=== PATIENT | female | born 1945 ===

== ENCOUNTER → 2018-04-02 09:13 | Outpatient (CLI) | payer MEDICARE, SELFPAY ==
[2018-04-02 10:26] LABS: Add Manual Diff / Slide Review NO; Eosinophils Percent Auto 1.4 % (2-4); Hematocrit 42.2 % (36-46); Hemoglobin 14.1 g/dL (12.0-16.0); Lymphocytes Percent Auto 31.6 % (25-40); Mean Corpuscular HGB Conc 33.5 % (30-36); Mean Corpuscular Hemoglobin 28.4 PG (26-34); Monocytes Percent Auto 10.9 % (3-14); Neutrophils Absolute Auto 2600 /uL (3000-5900); Neutrophils Percent Auto 55.1 % (50-75); Platelet Count 201 X10^3/uL (150-400); Red Blood Cell Count 4.96 X10^6/uL (4.0-5.2); Red Cell Distribution Width 13.9 % (11.6-14.8); White Blood Cell Count 4.7 X10^3/uL (4.5-11.0)
[2018-04-02 11:10] LABS: Alanine Aminotransferase 24 IU/L (9-52); Albumin 4.3 g/dL (3.5-5.0); Albumin Globulin Ratio 1.2 (1.0-2.8); Alkaline Phosphatase 65 U/L (38-126); Aspartate Aminotransferase 29 IU/L (14-36); BUN Creatinine Ratio 18.8 (6-22); Bilirubin Total 0.7 mg/dL (0.2-1.3); Blood Urea Nitrogen 15 mg/dL (7-17); Calcium 9.8 mg/dL (8.4-10.2); Carbon Dioxide 32 mmol/L (22-32); Chloride 102 mmol/L (98-107); Cholesterol 231 mg/dL (140-199); Estimated Glomerular Filt Rate > 60.0 mL/min (>60); Globulin 3.6 g/dL (1.7-4.1); Glucose 94 mg/dL (80-110); HDL Cholesterol 56 mg/dL (40-60); HEMOLYSIS < 15 (0-50); LDL Cholesterol Calculated 153 mg/dL (<100); Sodium 140 mmol/L (137-145); Total Protein 7.9 g/dL (6.3-8.2); Triglycerides 108 mg/dL (35-150)
[2018-04-02 11:40] LABS: TSH w/ Reflex to FT4 5.13 uIU/mL (0.47-4.68)
[2018-04-02 13:01] LABS: Free T4, Direct Thyroxine 0.94 ng/dL (0.78-2.19)
== END ==
PROVIDERS: Family Provider Family Medicine; PCP Family Medicine; Visit Provider Family Medicine
DX: E78.5 Hyperlipidemia, unspecified (principal); I10 Essential (primary) hypertension
CPT/HCPCS: 36415; 80053; 80061; 84439; 84443; 85025

== ENCOUNTER → 2018-04-07 11:24 | Outpatient (CLI) | payer MEDICARE, SELFPAY ==
--- NOTE | 2018-04-07 | DI.MG.S_ITS ---
BILATERAL DIGITAL SCREENING MAMMOGRAM 3D/2D WITH CAD: 04/07/2018 CLINICAL: Routine screening. Comparison is made to exams dated: 04/25/2016 mammogram, 04/12/2016 mammogram, and 02/10/2015 mammogram - [facility]. There are scattered fibroglandular elements in both breasts. Current study was also evaluated with a Computer Aided Detection (CAD) system. There are linear calcifications in the left breast upper outer aspect posterior depth. These are increased in number. No other significant masses, calcifications, or other findings are seen in either breast. IMPRESSION: INCOMPLETE: NEEDS ADDITIONAL IMAGING EVALUATION The linear calcifications in the left breast are indeterminate. Additional views with possible ultrasound are recommended. This exam was interpreted at Station ID: [id number]. NOTE: For mammograms, a report in lay terms will be sent to the patient. Approximately 15% of breast malignancies will not be visualized mammographically. In the management of a palpable breast mass, a negative mammogram must not discourage biopsy of a clinically suspicious lesion. Electronically Signed By: Andrea Sharma M.D. ecl/:04/07/2018 19:48:55 letter sent: Additional Imaging Needed ACR BI-RADS Category 0: Incomplete 3340F
== END ==
PROVIDERS: Family Provider Family Medicine; PCP Family Medicine; Visit Provider Family Medicine
DX: Z12.31 Encounter for screening mammogram for malignant neoplasm of breast (principal)
CPT/HCPCS: 77063; 77067

== ENCOUNTER → 2018-04-30 13:33 | Outpatient (CLI) | payer MEDICARE, SELFPAY ==
--- NOTE | 2018-04-30 13:35 | DI.MG.S_ITS ---
UNILATERAL LEFT DIGITAL DIAGNOSTIC MAMMOGRAM 3D/2D WITH ADDITIONAL VIEWS: 04/30/2018 CLINICAL: Additional evaluation requested from prior study. Comparison is made to exams dated: 04/07/2018 mammogram, 04/12/2016 mammogram, and 02/10/2015 mammogram - [facility]. There are scattered fibroglandular elements in the left breast. There are linear fine pleomorphic calcifications in the left breast at 2 o'clock posterior depth. No other significant masses or calcifications are seen in the breast. IMPRESSION: SUSPICIOUS OF MALIGNANCY The linear fine pleomorphic calcifications in the left breast are at an intermediate suspicion for malignancy. A stereotactic biopsy is recommended. The findings were discussed with the patient at the conclusion of the study by Dr. Braden. This exam was interpreted at Station ID: [id number]. NOTE: For mammograms, a report in lay terms will be sent to the patient. Approximately 15% of breast malignancies will not be visualized mammographically. In the management of a palpable breast mass, a negative mammogram must not discourage biopsy of a clinically suspicious lesion. Electronically Signed By: Godfrey morton/:04/30/2018 15:12:36 letter sent: Biopsy Required ACR BI-RADS Category 4b: Suspicious abnormality - intermediate suspicion of malignancy 3344F
== END ==
PROVIDERS: PCP Family Medicine; Visit Provider Family Medicine
DX: R92.8 Other abnormal and inconclusive findings on diagnostic imaging of breast (principal)
CPT/HCPCS: 77065; G0279

== ENCOUNTER → 2018-07-29 15:46 | Day surgery (SDC) | payer MEDICARE, SELFPAY | PROVIDERS: PCP Family Medicine; Visit Provider Surgery ==

== ENCOUNTER → 2018-08-20 07:30 | Outpatient (CLI) | payer MEDICARE, SELFPAY ==
--- NOTE | 2018-08-20 | DI.MG.S_ITS ---
SPECIMEN LEFT BREAST: 08/20/2018 CLINICAL: Left breast specimen. Correlation is made to exams dated: 05/12/2018 specimen - [facility], 04/07/2018 mammogram, and 08/20/2018 localization - [facility]. Two specimens were imaged for the area of calcifications located in the left breast at 3 o'clock posterior depth. IMPRESSION: SPECIMEN The imaged specimens includes a biopsy clip and the distal portion of the localization wire. This exam was interpreted at Station ID: [id number]. Nicola Bryant jl/:08/20/2018 14:29:02 copy to: Lance Trinidad
--- NOTE | 2018-08-20 | DI.MG.S_ITS ---
DIGITAL MAMMOGRAPHY GUIDED WIRE LOCALIZATION LEFT BREAST WITH POST DIGITAL MAMMOGRAPHIC IMAGIN08/20/2018 CLINICAL: Left Breast DCIS. Correlation is made to exams dated: 06/26/2018 breast MRI - [facility], 05/12/2018 stereotactic biopsy - [facility], and 04/30/2018 mammogram - [facility]. A wire localization using digital mammography guidance was performed for the marker clip located in the left breast at 3 o'clock posterior depth. The skin was prepped in the usual manner. Local anesthetic was administered to the access site. The localization was approached from the lateral aspect. A wire was inserted adjacent to the marker under digital mammography guidance. IMPRESSION: WIRE LOCALIZATION Wire localization for the marker clip in the left breast at 3 o'clock posterior depth was successful with no apparent post procedure complications. This exam was interpreted at Station ID: [id number]. Nicola shipman/:08/20/2018 10:23:51 copy to: Lance Trinidad
== END ==
PROVIDERS: PCP Family Medicine; Visit Provider Surgery
DX: D05.12 Intraductal carcinoma in situ of left breast (principal)
CPT/HCPCS: 19281; 76098

== ENCOUNTER 2018-08-20 07:31 | Day surgery (SDC) | payer MEDICARE, SELFPAY ==
[2018-08-15 09:19] VITALS: BMI 21.4
[2018-08-20] VITALS (10 sets, daily range): BP systolic 120–151; BP diastolic 64–96; PULSE 59–91; RESP 9–17; TEMP 36–36.4; O2SAT 94–99; BMI 21.4
--- NOTE | 2018-08-20 | PATH_ITS ---
[facility] Accession Number: [id number] . 01 Material submitted: . PART A: LEFT BREAST BIOPSY PART B: LEFT BREAST ANTERIOR . 02 Diagnosis: A. Left Breast Biopsy: CAP CANCER CASE SUMMARY Ductal carcinoma in situ of the breast: . Procedure: Left breast lumpectomy after needle localization. Specimen laterality: Left. Tumor site: Left breast at 2 o'clock, posterior, per patient's previous ultrasound-guided needle core biopsy report ([facility] [id number]; 05/12/2018). . Size of DCIS: Approximately five dispersed foci, each between 1 and 2 mm in greatest dimension, present in slices 4-7, a region measuring approximately 1.6 cm (4 slices, each approximately 4 mm each in thickness). . Histologic type: Ductal carcinoma in situ. Architectural patterns: Micropapillary pattern. Nuclear grade: Grade 1 of 3 (low grade). Necrosis: Not identified. . Margins: Anterior: Greater than 10 mm. Posterior: Greater than 10 mm. Superior: Within 1 mm. Inferior: 3 mm. Medial: Greater than 10 mm. Lateral: Greater than 10 mm. . Regional lymph nodes: Not applicable. Pathologic staging: AJCC, 8th ed. Primary tumor: pTis (DCIS) Regional lymph nodes: Not applicable. . Additional pathologic findings: Changes consistent with previous instrumentation; skin with no diagnostic abnormality. Microcalcifications: Present, associated with ductal carcinoma in situ, benign ductal epithelium, and benign fibroconnective tissue. Ancillary studies: Biomarkers Performed Previously on this patient's previous needle core biopsy ([facility], [id number]; 05/12/2018) and demonstrate the following by written report: Estrogen Receptor (ER) Status: Positive, 3+, greater than 95% of cells. . B. Left Breast Anterior (Additional margin), Lumpectomy Without Wire Localization: Benign breast parenchyma with changes consistent with previous instrumentation, adenosis, focal usual ductal hyperplasia, and scattered calcifications associated with benign ductal epithelium and vessel littlejohn. Negative for atypia and malignancy. MRV/08/22/2018 . 02 Electronically signed: . Elizabeth Laureano MD, Pathologist NPI- [id number] . 01 Gross description: . (A) Received in formalin, labeled left breast biopsy, short sup, long anterior, skin lateral, is a piece of breast tissue (5.1 cm AP, 0.5- 1.5 cm SI, 5.5 cm ML) with overlying skin (3.1 cm AP, 1.1 cm SI). The specimen is oriented with two black sutures (short-superior, long-anterior) and the skin is lateral. A localization wire enters the central posterior aspect of the skin. The specimen is serially sectioned AP into twelve slices with the anterior and posterior resection margins as slices #1 and #12, respectively. The breast tissue is fatty. The localization wire ends within slice #7. A possible hemorrhagic biopsy site (0.9 x 0.6 x 0.3 cm) is identified within slice #9. No nodules, masses or lesions are identified. Ink code: purple-anterior; yellow-posterior; black-superior; orange- inferior; green-medial. Section code: (A1) anterior resection margin, perpendicularly sectioned; (A2) slice #2; (A3) slice #3; (A4) slice #4; (A5-A6) slice #5, bisected and submitted LM; (A7-A8) slice #6, bisected and submitted LM; (A9-A10) slice #7, tissue involving the end of the localization wire, bisected and submitted LM; (A11-A12) slice #8, bisected and submitted LM; (A13-A14) slice #9, tissue with possible previous biopsy site, bisected and submitted LM; (A15-A16) slice #10, bisected and submitted LM; (A17-A18) slice #11, bisected and submitted LM; (A19-A20) posterior resection margin, perpendicularly sectioned and submitted LM. Specimen entirely submitted. (B) Received in formalin, labeled addition left breast anterior margin, short superior, long lateral, double anterior, is a piece of breast tissue (1.6 cm AP, 3.8 cm SI, 5.3 cm ML) with no overlying skin. The specimen is oriented with three black sutures (short-superior, long-lateral, double-anterior). No localization wire is present. The specimen is serially sectioned ML into sixteen slices with the medial and lateral resection margins as slices #1 and #16, respectively. The breast issue is fatty with no nodules, masses or lesions identified. Ink code: purple-anterior; yellow-posterior; black-superior; orange-inferior; green-medial; blue-lateral. Section code: (B1) medial resection margin, perpendicularly sectioned; (B2) slice #2; (B3) slice #3; (B4) slice #4; (B5) slice #5; (B6) slice #6; (B7) slice #7; (B8-B9) slice #8, bisected and submitted LM; (B10-B11) slice #9, bisected and submitted SI; (B12-B13) slice #10, bisected and submitted SI; (B14) slice #11; (B15) slice #12; (B16) slice # 13; (B17) slice #14; (B18) slice #15; (B19) lateral resection margin, perpendicularly sectioned. Specimen entirely submitted. . Note: Approximate total fixation time in formalin for both specimens-32 hours and 30 minutes calculated using a collection date of 08/20/2018 with no collection time given. ([id number]) /[facility] . 02 Pathologist provided ICD-10: D05.10 . 02 CPT . 698586, [id number] Performed at: 01 [facility] [address] [id number] MD Godfrey Campos MD Phone: [phone] Performed at: 02 [facility] [address] [place] [id number] MD Maru Abdi MD Phone: [phone]
--- NOTE | 2018-08-20 08:00 | SUR.PREOP ---
pt left for DI
--- NOTE | 2018-08-20 09:16 | SUR.PREOP ---
pt returned to opd from radiology , vss, no co's at 0910
[2018-08-20] MEDS: LACTATED RINGERS 1,000 ML 42 ML IV (09:18)
[2018-08-20] MEDS: APREPITANT 40 MG CAPSULE PO (12:37)
--- NOTE | 2018-08-20 12:53 | SUR.OPER ---
Supine on padded OR bed, head on pillow, arms secured on padded arm boards at <90 degrees abduction, legs uncrossed, safety belt at thigh, tape over blanket over lower legs.
[2018-08-20] MEDS: CEFAZOLIN 2 GM/100 ML FROZ.PIGGY IV (13:03)
[2018-08-20] MEDS: LIDOCAINE 1% W/EPI INJ 20 ML INJ (13:09)
[2018-08-20] MEDS: BUPIVACAINE 0.5% (PF) VIAL 30 ML INJ (13:10)
--- NOTE | 2018-08-20 13:40 | PM.HP.1 ---
History of Present Illness Date Patient Seen: 08/20/18 Time Patient Seen: 13:40 Chief complaint: left breast [id number] Narrative: Vivi is 1 full 72-year-old lady who was recently diagnosed with left breast DCIS. She presents today for left breast lumpectomy. She has already been to Radiology and has had a localization wire in place. She denies any nausea and reports that she is feeling well. Patient History Medical History Anesthesia complication (Acute) Cough (Acute) DCIS (ductal carcinoma in situ) of breast (Acute ~2017) Heart murmur (Acute) Low blood sugar (Acute) Pneumonia (Acute ~2015) Shortness of breath (Acute) Sinus drainage (Acute) Skipped heart beats (Acute) Acoustic neuroma (Chronic 2008) Hearing loss (Chronic 2001) Respiratory disorder (Chronic ~1994) Vertigo (Chronic 2014) Abnormal Pap smear of cervix (Resolved ~1984) Anemia (Resolved ~1959) Chicken pox (Resolved) Measles (Resolved) Mumps (Resolved) Nasal sinus polyp (Resolved ~1980) Plantar warts (Resolved 2008) Schwannoma (Resolved) Surgical History Hx of dilation and curettage (Acute ~1969) Anesthesia (Resolved) History of excision of mass (Resolved) History of sinus surgery (Resolved ~1980) Family & Social History Family History: Reviewed 08/20/18 by Luciana Murray MD Social History: household members spouse Tobacco & Substance use: Tobacco type cigarettes Smoking Status Former smoker alcohol intake former Substance Use Type does not use Meds Home Medications Medication Instructions Recorded Confirmed Type doxycycline monohydrate 25 mg PO BID #0 05/14/16 08/15/18 History Allergies Allergy/AdvReac Type Severity Reaction Status Date / Time No Known Drug Allergies Allergy Verified 05/16/18 16:01 Review of Systems Review of Systems All systems reviewed & are unremarkable except as noted in HPI and below Exam Vital Signs (past 8 hours): - 08/20/18 07:45 08/20/18 09:10 Temperature 97.2 F L 96.9 F L Pulse Rate 66 59 L Respiratory Rate 15 16 Blood Pressure 151/96 H 148/76 H Pulse Oximetry 99 97 Oxygen Delivery Method Room Air Narrative Exam Narrative: Pleasant lady in no distress HEENT: Normocephalic and atraumatic, pupils equal round reactive to light accommodation with anicteric sclera Lungs: Clear to auscultation bilaterally Heart: Regular rate and rhythm Breast: Localizing wire protruding from the lateral aspect of the left breast. No hemorrhage. Abdomen: Soft, nontender, active bowel sounds Extremities: Warm and well perfused and without edema Assessment & Plan Plan: Assessment/Plan Narrative: Pleasant and remarkably healthy 72-year-old lady with a pathologically confirmed diagnosis of left breast DCIS. We discussed risks and benefits of left breast lumpectomy and the patient expressed desire to complete the procedure.
--- NOTE | 2018-08-20 13:43 | PM.OP.1 ---
Operative Date/Time/Diagnoses Date of procedure: 08/20/18 Time of procedure: 13:43 Pre-op diagnosis: Left breast DCIS Post-op diagnosis: same Procedure & Clinicians Procedure: Left breast lumpectomy after needle localization Same procedure as scheduled: Yes Indications: Biopsy-proven DCIS Surgeon: Luciana Murray Anesthesia Type: General (Dr. Magdaleno) Operative Notes Findings: Wire, clip, and mass contained within the specimen. Closure Type: primary Estimated Blood Loss (mL): 10 Procedure in detail: After obtaining informed consent, the patient brought the operating room and placed in supine position on the operating table. Following successful induction of general endotracheal anesthesia, appropriate padding of all bony prominences, and placement of appropriate monitors, the left chest and axilla are prepped and draped in the standard surgical fashion. A time-out was held per SCOAP protocol. Following infiltration with local anesthetic to create a field block, an elliptical incision was fashioned around the existing wire to include the biopsy scar. This was carried down through the skin and subcutaneous tissue all the way to the chest wall. The entire lesion and associated wire and clip were then lifted from the chest wall. It was removed in 2 portions. Each portion was marked for orientation and submitted for specimen x-ray. The wound was then checked for hemostasis and irrigated copiously with warm water. The biopsy cavity was marked with clips for facilitation of radiation therapy. Dr. Kenny Rai called back in the room reporting that the targets were within the specimen. The wound was then closed in layers with Vicryl and Monocryl suture. Exophen was applied to the skin. All sponge, needle, and instrument counts were correct at the conclusion of the case. The patient was allowed to wake from anesthesia without significant difficulty and taken to the postanesthesia care unit in good condition. Complications: none Condition: stable Disposition: PACU Plan for aftercare: 1. Discharge to home 2. Where a breast binder at all times 3. Follow up with me in my office in 2 3 weeks
== END 2018-08-20 14:38 | disposition home or self-care (01) ==
PROVIDERS: PCP Family Medicine; Visit Provider Surgery
PROC: (CPT 19301; principal; 2018-08-20 12:00)
DX: D05.12 Intraductal carcinoma in situ of left breast (principal); R01.1 Cardiac murmur, unspecified; Z87.891 Personal history of nicotine dependence; E16.2 Hypoglycemia, unspecified; R06.02 Shortness of breath
CPT/HCPCS: 19301; 19281; 76098; J0690; J1100; J2250; J2405; J2704; J3010; J8501

== ENCOUNTER → 2018-09-24 13:36 | Outpatient (CLI) | payer MEDICARE, SELFPAY | PROVIDERS: PCP Family Medicine; Visit Provider Internal Medicine Hematology & Oncology | DX: M81.0 Age-related osteoporosis without current pathological fracture (principal); Z78.0 Asymptomatic menopausal state; Z85.3 Personal history of malignant neoplasm of breast; Z87.891 Personal history of nicotine dependence | CPT/HCPCS: 77080 ==

== ENCOUNTER 2019-04-06 13:45 | Outpatient (RCR) | payer MEDICARE, SELFPAY ==
--- NOTE | 2019-03-02 12:00 | PT.OPPOC ---
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 (03/02/19) Pain in unspecified shoulder (03/02/19) Provider Visit Care Team Role Provider Type Lance Trinidad MD Primary Care Provider Physician Specialty: Family Practice Address: [address] [place] [address], [id number] Email: [email or web address] Jorge Sutton MD Attending Provider Non-Staff Specialty: Radiology Address: [address] [place] [address], [id number] Email: Plan Of Care PT-OP-T Assessment and Plan Start: 03/02/19 08:13 Freq: Status: Active Protocol: Document 03/02/19 10:15 AMB (Rec: 03/03/19 17:07 AMB [email or web address]) Physical Therapy Assessment Goals Two Impairment Shoulder Short Term Goal (STG) Vivi will be independent with a HEP of self manual therapy and stretching for her shoulder. STG Duration 4 weeks Rn Long Term Care Goal (LTG) Vivi will increase her left shoulder abduction to active 150 degrees. LTG Duration 8 weeks One Impairment Transfers Short Term Goal (STG) Vivi will roll over in bed with 2/10 pain or less. STG Duration 4 weeks Rn Long Term Care Goal (LTG) Vivi will bend forward with 2/10 pain or less. LTG Duration 8 weeks Assessment Summary Assessment Vivi attends physical therapy with tightness in her left breast tissue since radiation therapy for her cancer back in October. She also had a lumpectomy but does not note pain directly over that scar. She also has tightness in her left shoulder , especially into abduction. She will benefit from physical therapy for manual therapy, soft tissue mobilization, and therapeutic exercise to maximize her shoulder range of motion to decrease her pain. Physical Therapy Plan Frequency and Duration Frequency of Treatment 1x/Week Duration of Treatment 10 weeks Plan of Care Start Date 03/03/19 Plan of Care End Date 05/12/19 Therapeutic Interventions Therapeutic Interventions Home Exercise Program Manual Therapy Neuromuscular Re-education Self-Care/Home Management Therapeutic Activities Therapeutic Exercises Next Visit Focus/Plan Next Note Type Treatment Note Next Visit Plan Continue with manual therapy, progress shoulder HEP Plan of Care Dates Plan of Care Start Date 03/03/19 Plan of Care End Date 05/12/19 Please Sign and Return: I have reviewed this Plan of Care and certify that the skilled therapy services above are required to meet the patient?s needs. Physician Signature Date Printed Name and Credentials Clinical Instructor Signature Printed Name and Credentials
--- NOTE | 2019-03-02 12:00 | PT.OIE ---
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) Heart murmur (Acute) Low blood sugar (Acute) Pneumonia (Acute ~2015) Shortness of breath (Acute) Sinus drainage (Acute) Skipped heart beats (Acute) Acoustic neuroma (Chronic 2008) Hearing loss (Chronic 2001) Respiratory disorder (Chronic ~1994) Vertigo (Chronic 2014) Abnormal Pap smear of cervix (Resolved ~1984) Anemia (Resolved ~1959) Chicken pox (Resolved) Measles (Resolved) Mumps (Resolved) Nasal sinus polyp (Resolved ~1980) Plantar warts (Resolved 2008) Schwannoma (Resolved) Past Surgical History (Last Reviewed 08/20/18 @ 13:41 by Luciana Murray MD) Hx of dilation and curettage (Acute ~1969) Anesthesia (Resolved) History of excision of mass (Resolved) History of sinus surgery (Resolved ~1980) Provider Visit Care Team Role Provider Type Lance Trinidad MD Primary Care Provider Physician Specialty: Family Practice Address: [address] [place] [address], [id number] Email: [email or web address] Sutton MD Attending Provider Non-Staff Specialty: Radiology Address: [address] [place] [address], [id number] Email: Physical Therapy Initial Evaluation PT-OP-A Visit Information Start: 03/02/19 08:13 Freq: Status: Active Protocol: Document 03/02/19 10:15 AMB (Rec: 03/03/19 12:03 AMB [email or web address]) Out-Patient Physical Therapy Visit Information Visit Information Visit Type Initial Evaluation Visit Start Time 10:15 Visit Stop Time 11:00 Total Visit Minutes 45 Visit Number 1 PT-OP-B Current Condition Start: 03/02/19 08:13 Freq: Status: Active Protocol: Document 03/02/19 10:15 AMB (Rec: 03/03/19 12:03 AMB [email or web address]) Current Condition History of Current Condition Onset Date October 2018 Current Complaints L breast pain s/p cancer treatment History of Current Condition Vivi had a lumpectomy in September and finished radiation in October. She has been wearing a sports bra since, and finds that if she bends forward or rolls over in bed, the left lateral breast hurts. She describes the pain as a pulling/ sharp sensation. Treatment Goals Patient/Caregiver Goals Be able to move without pain/ pulling in her breast Prior Functional Status Baseline Function- ADL's Independent Baseline Function- Mobility Independent Current Functional Impairments (Reported) Functional Limitations- ADL's Limits bendingforward due to pain. Personal Factors Other Personal Factors That May Effect Prior brain cancer 2014, no Therapy/Recovery chemotherapy PT-OP-J Posture/Palpation/Skin Start: 03/02/19 08:13 Freq: Status: Active Protocol: Document 03/02/19 10:15 AMB (Rec: 03/03/19 16:47 AMB [email or web address]) Posture Evaluation Comments Posture Comments slight forward head, forward shoulders Palpation Assessment Location One Palpation Location L lateral breast Palpation Findings Soft Tissue Tightness Tenderness Palpation Details Light scar massage not painful , however pt's pain is reproduced by deeper palpation and movement of deeper tissues. PT-OP-K Range of Motion Start: 03/02/19 08:13 Freq: Status: Active Protocol: Document 03/02/19 10:15 AMB (Rec: 03/03/19 16:47 AMB [email or web address]) Shoulder Goniometric Range of Motion Shoulder Right Active Flexion 157 Abduction 155 External Rotation at 0 degrees Abduction 85 Left Active Flexion 150 Abduction 135 External Rotation at 0 degrees Abduction 75 PT-OP-Q Treatments Start: 03/02/19 08:13 Freq: Status: Active Protocol: Document 03/02/19 10:15 AMB (Rec: 03/03/19 17:07 AMB [email or web address]) Manual Therapy Treatment Soft Tissue Mobilization 1 Body Location L breast Mobilization Type Myofascial Release Intensity/Depth Moderate Body Position Supine Comments multidirectional PT-OP-T Assessment and Plan Start: 03/02/19 08:13 Freq: Status: Active Protocol: Document 03/02/19 10:15 AMB (Rec: 03/03/19 17:07 AMB [email or web address]) Physical Therapy Assessment Goals Two Impairment Shoulder Short Term Goal (STG) Vivi will be independent with a HEP of self manual therapy and stretching for her shoulder. STG Duration 4 weeks Claim Representative Goal (LTG) Vivi will increase her left shoulder abduction to active 150 degrees. LTG Duration 8 weeks One Impairment Transfers Short Term Goal (STG) Vivi will roll over in bed with 2/10 pain or less. STG Duration 4 weeks Claim Representative Goal (LTG) Vivi will bend forward with 2/10 pain or less. LTG Duration 8 weeks Assessment Summary Assessment Vivi attends physical therapy with tightness in her left breast tissue since radiation therapy for her cancer back in October. She also had a lumpectomy but does not note pain directly over that scar. She also has tightness in her left shoulder , especially into abduction. She will benefit from physical therapy for manual therapy, soft tissue mobilization, and therapeutic exercise to maximize her shoulder range of motion to decrease her pain. Physical Therapy Plan Frequency and Duration Frequency of Treatment 1x/Week Duration of Treatment 10 weeks Plan of Care Start Date 03/03/19 Plan of Care End Date 05/12/19 Therapeutic Interventions Therapeutic Interventions Home Exercise Program Manual Therapy Neuromuscular Re-education Self-Care/Home Management Therapeutic Activities Therapeutic Exercises Next Visit Focus/Plan Next Note Type Treatment Note Next Visit Plan Continue with manual therapy, progress shoulder HEP
--- NOTE | 2019-03-04 12:00 | PT.OTN ---
Current Diagnoses Intraductal carcinoma in situ of left breast (03/04/19) Scar conditions and fibrosis of skin (03/04/19) Pain in unspecified shoulder (03/04/19) Physical Therapy Treatment Note PT-OP-A Visit Information Start: 03/02/19 08:13 Freq: Status: Active Protocol: Document 03/04/19 10:30 AMB (Rec: 03/04/19 11:19 AMB [id number]) Out-Patient Physical Therapy Visit Information Visit Information Visit Type Treatment Note Visit Start Time 10:30 Visit Stop Time 11:15 Total Visit Minutes 45 Visit Number 2 PT-OP-B Current Condition Start: 03/02/19 08:13 Freq: Status: Active Protocol: Document 03/02/19 10:15 AMB (Rec: 03/03/19 12:03 AMB [email or web address]) Current Condition History of Current Condition Onset Date October 2018 Current Complaints L breast pain s/p cancer treatment History of Current Condition Vivi had a lumpectomy in September and finished radiation in October. She has been wearing a sports bra since, and finds that if she bends forward or rolls over in bed, the left lateral breast hurts. She describes the pain as a pulling/ sharp sensation. Treatment Goals Patient/Caregiver Goals Be able to move without pain/ pulling in her breast Prior Functional Status Baseline Function- ADL's Independent Baseline Function- Mobility Independent Current Functional Impairments (Reported) Functional Limitations- ADL's Limits bendingforward due to pain. Personal Factors Other Personal Factors That May Effect Prior brain cancer 2014, no Therapy/Recovery chemotherapy PT-OP-C Subjective Start: 03/02/19 08:13 Freq: Status: Active Protocol: Document 03/04/19 10:30 AMB (Rec: 03/04/19 11:19 AMB [id number]) OP-PT Subjective Patient Comments Patient Comments Pt reports she has been doing her HEP, but is a bit sore from it. Describes pain as 2/ 10 currently. PT-OP-J Posture/Palpation/Skin Start: 03/02/19 08:13 Freq: Status: Active Protocol: Document 03/02/19 10:15 AMB (Rec: 03/03/19 16:47 AMB [email or web address]) Posture Evaluation Comments Posture Comments slight forward head, forward shoulders Palpation Assessment Location One Palpation Location L lateral breast Palpation Findings Soft Tissue Tightness Tenderness Palpation Details Light scar massage not painful , however pt's pain is reproduced by deeper palpation and movement of deeper tissues. PT-OP-K Range of Motion Start: 03/02/19 08:13 Freq: Status: Active Protocol: Document 03/02/19 10:15 AMB (Rec: 03/03/19 16:47 AMB [email or web address]) Shoulder Goniometric Range of Motion Shoulder Right Active Flexion 157 Abduction 155 External Rotation at 0 degrees Abduction 85 Left Active Flexion 150 Abduction 135 External Rotation at 0 degrees Abduction 75 PT-OP-Q Treatments Start: 03/02/19 08:13 Freq: Status: Active Protocol: Document 03/04/19 10:30 AMB (Rec: 03/06/19 08:46 AMB [email or web address]) Therapeutic Exercises Supine Exercises 1 Supine Exercise Name AAROM shoulder Reps/Minutes 10 Comments flex, abd, ER Manual Therapy Treatment Soft Tissue Mobilization 1 Body Location L breast Mobilization Type Myofascial Release Intensity/Depth Moderate Body Position Supine Comments multidirectional, into axilla PT-OP-R Modalities Start: 03/06/19 08:47 Freq: Status: Active Protocol: Document 03/04/19 10:30 AMB (Rec: 03/06/19 08:47 AMB [email or web address]) Hot Pack/Cold Pack Treatment Cold Pack Location L torso Patient Position Sitting Treatment Duration (minutes) 10 Patient Tolerance Good PT-OP-T Assessment and Plan Start: 03/02/19 08:13 Freq: Status: Active Protocol: Document 03/04/19 10:30 AMB (Rec: 03/04/19 13:02 AMB [email or web address]) Physical Therapy Assessment Assessment Summary Assessment Vivi tolerated treatment wll today, although soreness did increase from 2/10 to 4/10 during treatment. Physical Therapy Plan Next Visit Focus/Plan Next Note Type Treatment Note Next Visit Plan Continue with manual therapy, progress shoulder HEP
--- NOTE | 2019-03-10 16:00 | PT.OTN ---
Current Diagnoses Intraductal carcinoma in situ of left breast (03/10/19) Scar conditions and fibrosis of skin (03/10/19) Pain in unspecified shoulder (03/10/19) Physical Therapy Treatment Note PT-OP-A Visit Information Start: 03/02/19 08:13 Freq: Status: Active Protocol: Document 03/10/19 09:45 AMB (Rec: 03/10/19 09:59 AMB [id number]) Out-Patient Physical Therapy Visit Information Visit Information Visit Type Treatment Note Visit Start Time 09:45 Visit Stop Time 10:30 Total Visit Minutes 45 Visit Number 3 PT-OP-B Current Condition Start: 03/02/19 08:13 Freq: Status: Active Protocol: Document 03/02/19 10:15 AMB (Rec: 03/03/19 12:03 AMB [email or web address]) Current Condition History of Current Condition Onset Date October 2018 Current Complaints L breast pain s/p cancer treatment History of Current Condition Vivi had a lumpectomy in September and finished radiation in October. She has been wearing a sports bra since, and finds that if she bends forward or rolls over in bed, the left lateral breast hurts. She describes the pain as a pulling/ sharp sensation. Treatment Goals Patient/Caregiver Goals Be able to move without pain/ pulling in her breast Prior Functional Status Baseline Function- ADL's Independent Baseline Function- Mobility Independent Current Functional Impairments (Reported) Functional Limitations- ADL's Limits bendingforward due to pain. Personal Factors Other Personal Factors That May Effect Prior brain cancer 2014, no Therapy/Recovery chemotherapy PT-OP-C Subjective Start: 03/02/19 08:13 Freq: Status: Active Protocol: Document 03/10/19 09:45 AMB (Rec: 03/10/19 09:59 AMB [id number]) OP-PT Subjective Patient Comments Patient Comments 3/10 with exercise, 1/10 when walking in. PT-OP-J Posture/Palpation/Skin Start: 03/02/19 08:13 Freq: Status: Active Protocol: Document 03/02/19 10:15 AMB (Rec: 03/03/19 16:47 AMB [email or web address]) Posture Evaluation Comments Posture Comments slight forward head, forward shoulders Palpation Assessment Location One Palpation Location L lateral breast Palpation Findings Soft Tissue Tightness Tenderness Palpation Details Light scar massage not painful , however pt's pain is reproduced by deeper palpation and movement of deeper tissues. PT-OP-K Range of Motion Start: 03/02/19 08:13 Freq: Status: Active Protocol: Document 03/02/19 10:15 AMB (Rec: 03/03/19 16:47 AMB [email or web address]) Shoulder Goniometric Range of Motion Shoulder Right Active Flexion 157 Abduction 155 External Rotation at 0 degrees Abduction 85 Left Active Flexion 150 Abduction 135 External Rotation at 0 degrees Abduction 75 PT-OP-Q Treatments Start: 03/02/19 08:13 Freq: Status: Active Protocol: Document 03/10/19 09:45 AMB (Rec: 03/11/19 07:15 AMB [email or web address]) Cardio Equipment Upper Body Ergometer (UBE) Duration (Minutes) 5 Other fwd backward Therapeutic Exercises Sitting Exercises 1 Sitting Exercise Name pulleys Comments flexion abduction Manual Therapy Treatment Soft Tissue Mobilization 1 Body Location L breast Mobilization Type Myofascial Release Intensity/Depth Moderate Body Position Supine Comments multidirectional, into axilla PT-OP-R Modalities Start: 03/06/19 08:47 Freq: Status: Active Protocol: Document 03/04/19 10:30 AMB (Rec: 03/06/19 08:47 AMB [email or web address]) Hot Pack/Cold Pack Treatment Cold Pack Location L torso Patient Position Sitting Treatment Duration (minutes) 10 Patient Tolerance Good PT-OP-T Assessment and Plan Start: 03/02/19 08:13 Freq: Status: Active Protocol: Document 03/10/19 09:45 AMB (Rec: 03/11/19 07:15 AMB [email or web address]) Physical Therapy Assessment Assessment Summary Assessment Vivi is overall doing more at home, although continues to feel better with compression. Physical Therapy Plan Next Visit Focus/Plan Next Note Type Treatment Note Next Visit Plan Continue with manual therapy, progress shoulder HEP
--- NOTE | 2019-03-26 11:28 | PT.OTN ---
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 (03/26/19) Pain in unspecified shoulder (03/26/19) Physical Therapy Treatment Note PT-OP-A Visit Information Start: 03/02/19 08:13 Freq: Status: Active Protocol: Document 03/26/19 10:30 AMB (Rec: 03/26/19 11:28 AMB [email or web address]) Out-Patient Physical Therapy Visit Information Visit Information Visit Type Treatment Note Visit Start Time 10:30 Visit Stop Time 11:15 Total Visit Minutes 45 Visit Number 4 PT-OP-B Current Condition Start: 03/02/19 08:13 Freq: Status: Active Protocol: Document 03/02/19 10:15 AMB (Rec: 03/03/19 12:03 AMB [email or web address]) Current Condition History of Current Condition Onset Date October 2018 Current Complaints L breast pain s/p cancer treatment History of Current Condition Vivi had a lumpectomy in September and finished radiation in October. She has been wearing a sports bra since, and finds that if she bends forward or rolls over in bed, the left lateral breast hurts. She describes the pain as a pulling/ sharp sensation. Treatment Goals Patient/Caregiver Goals Be able to move without pain/ pulling in her breast Prior Functional Status Baseline Function- ADL's Independent Baseline Function- Mobility Independent Current Functional Impairments (Reported) Functional Limitations- ADL's Limits bendingforward due to pain. Personal Factors Other Personal Factors That May Effect Prior brain cancer 2014, no Therapy/Recovery chemotherapy PT-OP-C Subjective Start: 03/02/19 08:13 Freq: Status: Active Protocol: Document 03/26/19 10:30 AMB (Rec: 03/26/19 11:28 AMB [email or web address]) OP-PT Subjective Patient Comments Patient Comments Pt reports she was shoveling bark mulch yesterday and did not have pain with that. She has not been having to wear a bra to sleep and can bend forward without pain now. She is noticing pain more at the edge of her scapula. PT-OP-J Posture/Palpation/Skin Start: 03/02/19 08:13 Freq: Status: Active Protocol: Document 03/02/19 10:15 AMB (Rec: 03/03/19 16:47 AMB [email or web address]) Posture Evaluation Comments Posture Comments slight forward head, forward shoulders Palpation Assessment Location One Palpation Location L lateral breast Palpation Findings Soft Tissue Tightness Tenderness Palpation Details Light scar massage not painful , however pt's pain is reproduced by deeper palpation and movement of deeper tissues. PT-OP-K Range of Motion Start: 03/02/19 08:13 Freq: Status: Active Protocol: Document 03/02/19 10:15 AMB (Rec: 03/03/19 16:47 AMB [email or web address]) Shoulder Goniometric Range of Motion Shoulder Right Active Flexion 157 Abduction 155 External Rotation at 0 degrees Abduction 85 Left Active Flexion 150 Abduction 135 External Rotation at 0 degrees Abduction 75 PT-OP-Q Treatments Start: 03/02/19 08:13 Freq: Status: Active Protocol: Document 03/26/19 10:30 AMB (Rec: 03/26/19 11:28 AMB [email or web address]) Therapeutic Exercises Supine Exercises 1 Supine Exercise Name AAROM shoulder Reps/Minutes 10 Comments flex, abd, ER Standing Exercises 1 Standing Exercise Name wall stretch shoulder flexion Reps/Minutes 30x2 Manual Therapy Treatment Soft Tissue Mobilization 2 Body Location L periscapular Body Position Standing 1 Body Location L breast Mobilization Type Myofascial Release Intensity/Depth Moderate Body Position Supine Comments multidirectional, into axilla PT-OP-R Modalities Start: 03/06/19 08:47 Freq: Status: Active Protocol: Document 03/04/19 10:30 AMB (Rec: 03/06/19 08:47 AMB [email or web address]) Hot Pack/Cold Pack Treatment Cold Pack Location L torso Patient Position Sitting Treatment Duration (minutes) 10 Patient Tolerance Good PT-OP-T Assessment and Plan Start: 03/02/19 08:13 Freq: Status: Active Protocol: Document 03/26/19 10:30 AMB (Rec: 03/26/19 11:28 AMB [email or web address]) Physical Therapy Assessment Assessment Summary Assessment Vivi is doing well, doing more and continuing to be active. She was recently diagnosed with osteoporosis, so educated her in body mechanics/posture in relation to that and the importance of continued stretching. Physical Therapy Plan Next Visit Focus/Plan Next Note Type Treatment Note Next Visit Plan Continue with manual therapy, progress shoulder HEP
--- NOTE | 2019-04-06 16:39 | PT.OTN ---
Current Diagnoses Intraductal carcinoma in situ of left breast (04/06/19) Scar conditions and fibrosis of skin (04/06/19) Pain in unspecified shoulder (04/06/19) Physical Therapy Treatment Note PT-OP-A Visit Information Start: 03/02/19 08:13 Freq: Status: Active Protocol: Document 04/06/19 13:45 AMB (Rec: 04/06/19 13:56 AMB [id number]) Out-Patient Physical Therapy Visit Information Visit Information Visit Type Treatment Note Visit Start Time 13:45 Visit Stop Time 14:30 Total Visit Minutes 45 Visit Number 5 PT-OP-B Current Condition Start: 03/02/19 08:13 Freq: Status: Active Protocol: Document 03/02/19 10:15 AMB (Rec: 03/03/19 12:03 AMB [email or web address]) Current Condition History of Current Condition Onset Date October 2018 Current Complaints L breast pain s/p cancer treatment History of Current Condition Vivi had a lumpectomy in September and finished radiation in October. She has been wearing a sports bra since, and finds that if she bends forward or rolls over in bed, the left lateral breast hurts. She describes the pain as a pulling/ sharp sensation. Treatment Goals Patient/Caregiver Goals Be able to move without pain/ pulling in her breast Prior Functional Status Baseline Function- ADL's Independent Baseline Function- Mobility Independent Current Functional Impairments (Reported) Functional Limitations- ADL's Limits bendingforward due to pain. Personal Factors Other Personal Factors That May Effect Prior brain cancer 2014, no Therapy/Recovery chemotherapy PT-OP-C Subjective Start: 03/02/19 08:13 Freq: Status: Active Protocol: Document 04/06/19 13:45 AMB (Rec: 04/06/19 13:56 AMB [id number]) OP-PT Subjective Patient Comments Patient Comments Pt reports she stopped doing her exercises for a few days and the stiffness came back, a little bit of pain, back in the armpit but otherwise doing very well. PT-OP-J Posture/Palpation/Skin Start: 03/02/19 08:13 Freq: Status: Active Protocol: Document 03/02/19 10:15 AMB (Rec: 03/03/19 16:47 AMB [email or web address]) Posture Evaluation Comments Posture Comments slight forward head, forward shoulders Palpation Assessment Location One Palpation Location L lateral breast Palpation Findings Soft Tissue Tightness Tenderness Palpation Details Light scar massage not painful , however pt's pain is reproduced by deeper palpation and movement of deeper tissues. PT-OP-K Range of Motion Start: 03/02/19 08:13 Freq: Status: Active Protocol: Document 04/06/19 14:00 AMB (Rec: 04/06/19 14:33 AMB [id number]) Shoulder Goniometric Range of Motion Shoulder Left Active Flexion 155 Abduction 175 PT-OP-Q Treatments Start: 03/02/19 08:13 Freq: Status: Active Protocol: Document 04/06/19 13:45 AMB (Rec: 04/06/19 14:43 AMB [id number]) Cardio Equipment Upper Body Ergometer (UBE) Duration (Minutes) 6 Other fwd backward Therapeutic Exercises Sidelying Exercises 1 Sidelying Exercise Name sleeper stretch Reps/Minutes 30x2 Sitting Exercises 2 Sitting Exercise Name seated table stretch Comments flexion Manual Therapy Treatment Soft Tissue Mobilization 2 Body Location L periscapular Body Position Standing 1 Body Location L breast Mobilization Type Myofascial Release Intensity/Depth Moderate Body Position Supine Comments multidirectional, into axilla PT-OP-R Modalities Start: 03/06/19 08:47 Freq: Status: Active Protocol: Document 03/04/19 10:30 AMB (Rec: 03/06/19 08:47 AMB [email or web address]) Hot Pack/Cold Pack Treatment Cold Pack Location L torso Patient Position Sitting Treatment Duration (minutes) 10 Patient Tolerance Good PT-OP-T Assessment and Plan Start: 03/02/19 08:13 Freq: Status: Active Protocol: Document 04/06/19 13:45 AMB (Rec: 04/06/19 14:43 AMB [id number]) Physical Therapy Assessment Goals Two Impairment Shoulder Short Term Goal (STG) Vivi will be independent with a HEP of self manual therapy and stretching for her shoulder. STG Duration MET [facility] Goal (LTG) Vivi will increase her left shoulder abduction to active 150 degrees. LTG Duration MET One Impairment Transfers Short Term Goal (STG) Vivi will roll over in bed with 2/10 pain or less. STG Duration MET [facility] Goal (LTG) Vivi will bend forward with 2/10 pain or less. LTG Duration MET Assessment Summary Assessment Vivi was lacking slightly in internal rotation and flexion in comparison to the right. She is continuing to notice tightness but it is slight and she stretches and it goes away. She feels ready to be done with PT and continue on with her exercises. Physical Therapy Plan Discharge Physical Therapy Discharge Reasons Goals Met
--- NOTE | 2019-04-08 16:40 | PT.OPDS ---
Current Diagnoses Intraductal carcinoma in situ of left breast (04/06/19) Scar conditions and fibrosis of skin (04/06/19) Pain in unspecified shoulder (04/06/19) Provider Visit Care Team Role Provider Type Lance Trinidad MD Primary Care Provider Physician Specialty: Family Practice Address: [address] [place] [address], [id number] Email: [email or web address] Jorge Sutton MD Attending Provider Non-Staff Specialty: Radiology Address: [address] [place] [address], [id number] Email: Visit Number Visit Number 5 Discharge Summary PT-OP-B Current Condition Start: 03/02/19 08:13 Freq: Status: Active Protocol: Document 03/02/19 10:15 AMB (Rec: 03/03/19 12:03 AMB [email or web address]) Current Condition History of Current Condition Onset Date October 2018 Current Complaints L breast pain s/p cancer treatment History of Current Condition Vivi had a lumpectomy in September and finished radiation in October. She has been wearing a sports bra since, and finds that if she bends forward or rolls over in bed, the left lateral breast hurts. She describes the pain as a pulling/ sharp sensation. Treatment Goals Patient/Caregiver Goals Be able to move without pain/ pulling in her breast Prior Functional Status Baseline Function- ADL's Independent Baseline Function- Mobility Independent Current Functional Impairments (Reported) Functional Limitations- ADL's Limits bendingforward due to pain. Personal Factors Other Personal Factors That May Effect Prior brain cancer 2015, no Therapy/Recovery chemotherapy PT-OP-C Subjective Start: 03/02/19 08:13 Freq: Status: Active Protocol: Document 04/06/19 13:45 AMB (Rec: 04/06/19 13:56 AMB [id number]) OP-PT Subjective Patient Comments Patient Comments Pt reports she stopped doing her exercises for a few days and the stiffness came back, a little bit of pain, back in the armpit but otherwise doing very well. PT-OP-J Posture/Palpation/Skin Start: 03/02/19 08:13 Freq: Status: Active Protocol: Document 07/01/19 10:15 AMB (Rec: 03/03/19 16:47 AMB [email or web address]) Posture Evaluation Comments Posture Comments slight forward head, forward shoulders Palpation Assessment Location One Palpation Location L lateral breast Palpation Findings Soft Tissue Tightness Tenderness Palpation Details Light scar massage not painful , however pt's pain is reproduced by deeper palpation and movement of deeper tissues. PT-OP-K Range of Motion Start: 03/02/19 08:13 Freq: Status: Active Protocol: Document 04/06/19 14:00 AMB (Rec: 04/06/19 14:33 AMB [id number]) Shoulder Goniometric Range of Motion Shoulder Left Active Flexion 155 Abduction 175 PT-OP-T Assessment and Plan Start: 03/02/19 08:13 Freq: Status: Active Protocol: Document 04/06/19 13:45 AMB (Rec: 04/06/19 14:43 AMB [id number]) Physical Therapy Assessment Goals Two Impairment Shoulder Short Term Goal (STG) Vivi will be independent with a HEP of self manual therapy and stretching for her shoulder. STG Duration MET Long-Term Goal (LTG) Vivi will increase her left shoulder abduction to active 150 degrees. LTG Duration MET One Impairment Transfers Short Term Goal (STG) Vivi will roll over in bed with 2/10 pain or less. 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 LTG Duration MET Assessment Summary Assessment Vivi was lacking slightly in internal rotation and flexion in comparison to the right. She is continuing to notice tightness but it is slight and she stretches and it goes away. She feels ready to be done with PT and continue on with her exercises. Physical Therapy Plan Discharge Physical Therapy Discharge Reasons Goals Met
== END 2019-04-15 14:07 | disposition home or self-care (01) ==
LOC: PHYS 13:45
PROVIDERS: PCP Family Medicine; Visit Provider Radiology Radiation Oncology
DX: D05.12 Intraductal carcinoma in situ of left breast (principal); L90.5 Scar conditions and fibrosis of skin; M25.519 Pain in unspecified shoulder
CPT/HCPCS: 97110; 97140; 97161

== ENCOUNTER → 2019-05-20 09:43 | Outpatient (CLI) | payer MEDICARE, SELFPAY ==
[2019-05-20 11:26] LABS: Cholesterol 249 mg/dL (140-199); HDL Cholesterol 51 mg/dL (40-60); LDL Cholesterol Calculated 146 mg/dL (<100); Triglycerides 258 mg/dL (35-150)
[2019-05-23 17:33] LABS: Thyroid Peroxidase Antibodies < 1 IU/mL (< 9)
== END ==
PROVIDERS: PCP Family Medicine; Visit Provider Family Medicine
DX: E03.9 Hypothyroidism, unspecified (principal); I10 Essential (primary) hypertension; R89.9 Unspecified abnormal finding in specimens from other organs, systems and tissues
CPT/HCPCS: 36415; 80061; 84439; 84443; 86376

== ENCOUNTER → 2019-06-09 11:04 | Outpatient (CLI) | payer MEDICARE, SELFPAY ==
--- NOTE | 2019-06-09 11:05 | DI.MG.S_ITS ---
BILATERAL DIGITAL SCREENING MAMMOGRAM 3D/2D WITH CAD POST LUMPECTOMY: 06/09/2019 CLINICAL: Routine screening. Personal history of breast cancer. Comparison is made to exams dated: 04/30/2018 mammogram, 04/07/2018 mammogram, 04/25/2016 mammogram, 04/12/2016 mammogram, and 02/10/2015 mammogram - [facility]. There are scattered fibroglandular elements in both breasts. Current study was also evaluated with a Computer Aided Detection (CAD) system. There are surgical clips in the left breast at 2 o'clock posterior depth. This correlates with surgery. There is architectural distortion, a post-surgical scar, and trabecular thickening associated with the surgical clips. No other significant masses, calcifications, or other findings are seen in either breast. IMPRESSION: There is no mammographic evidence of malignancy. A 1 year screening mammogram is recommended. This exam was interpreted at Station ID: [id number]. NOTE: For mammograms, a report in lay terms will be sent to the patient. Approximately 15% of breast malignancies will not be visualized mammographically. In the management of a palpable breast mass, a negative mammogram must not discourage biopsy of a clinically suspicious lesion. Electronically Signed By: Godfrey morton/david:06/10/2019 11:21:07 copy to: Lance Trinidad letter sent: Normal Exam ACR BI-RADS Category 2: Benign Finding(s) 3342F
== END ==
PROVIDERS: Family Provider Family Medicine; PCP Family Medicine; Visit Provider Internal Medicine Hematology & Oncology
DX: Z12.31 Encounter for screening mammogram for malignant neoplasm of breast (principal); D05.12 Intraductal carcinoma in situ of left breast
CPT/HCPCS: 77063; 77067

== ENCOUNTER → 2019-07-09 10:51 | Outpatient (CLI) | payer MEDICARE, SELFPAY ==
[2019-07-09 13:16] LABS: TSH w/ Reflex to FT4 4.19 uIU/mL (0.47-4.68)
== END ==
PROVIDERS: PCP Family Medicine; Visit Provider Family Medicine
DX: E03.9 Hypothyroidism, unspecified (principal)
CPT/HCPCS: 36415; 84443

== ENCOUNTER → 2020-10-13 14:03 | Oncology outpatient (ONC) | payer MEDICARE, SELFPAY ==
--- NOTE | 2018-09-22 15:31 | ONC.CONS ---
History of Present Illness - Data of Consult Patient: new to practice Consult date: 09/22/18 Requesting Physician: Luciana Murray MD Primary Care Provider: Lance Trinidad MD - Consult Narrative Reason for consult: Left DCIS Narrative: Vivi Brooks is a 72 year old female. She was seen in 04/2018 by her PCP Lance Trinidad MD for wellness visit. Screening mammogram 04/07/2018 was obtained that showed linear calcifications in the left breast upper outer aspect posterior depth. On 04/30/2018, she underwent unilateral left digital diagnostic mammogram 3D/2D that showed the linear fine pleomorphic calcifications in the left breast suspicious of malignancy. On 05/12/2018, she underwent stereotactic breast biopsy of the left breast lesion. Pathology showed DCIS, Grade ([place]): low, ER 3+, > 95%, micropapillary. Dr. Murray performed left breast lumpectomy after needle localization on 08/20/2018. 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 She is scheduled to see Dr. Patel Hopland 09/30/2018. Clinically, she is complaining of left side breast little pain and twinge. She reports good energy, good appetite, no shortness of breath, no chest pain, no musculoskeletal pain except right thumb pain which was thought to be due to trigger thumb. She denies any hip pain. Patient reports pain?: No Home Medications and Allergies Home Medications Medication Instructions Recorded Confirmed Type doxycycline monohydrate 25 mg PO BID #0 05/14/16 09/22/18 History Allergies Allergy/AdvReac Type Severity Reaction Status Date / Time No Known Drug Allergies Allergy Verified 05/16/18 16:01 Medical History - Medical, Surgical, Family History Medical History: Medical History (Last Updated 09/22/18 @ 15:45 by Kirsten Raman MD) Anesthesia complication Cough DCIS (ductal carcinoma in situ) of breast Onset Date: ~2017 Heart murmur Low blood sugar Pneumonia Onset Date: ~2015 Shortness of breath Sinus drainage Skipped heart beats Acoustic neuroma Onset Date: 2008 Hearing loss Onset Date: 2001 Respiratory disorder Onset Date: ~1994 Vertigo Onset Date: 2014 Abnormal Pap smear of cervix Onset Date: ~1984 Anemia Onset Date: ~1959 Chicken pox Measles Mumps Nasal sinus polyp Onset Date: ~1980 Plantar warts Onset Date: 2008 Schwannoma Surgical History: Surgical History (Last Reviewed 08/20/18 @ 13:41 by Luciana Murray MD) Hx of dilation and curettage Onset Date: ~1969 Anesthesia History of excision of mass History of sinus surgery Onset Date: ~1980 Family History: Family History (Last Reviewed 08/20/18 @ 13:41 by Luciana Murray MD) Father Diabetes mellitus Heart disease Stroke Congestive heart failure Grandmother Colon cancer Mother Glioblastoma Brain cancer Grandfather Ruptured appendix Peritonitis Grandmother Heart failure - Social History Smoking Status: Former smoker Smoking packs per day: 1 (usually less than one pack per day) Years smoked: 35 Quit Date: 12/31/08 Substance Use Type: does not use Alcohol Intake: former (quitted 12/24/1985) Review of Systems All systems PM: reviewed and no additional remarkable complaints except as stated Exam Vital signs: Last Vital Signs Temp 98.1 F 09/22/18 15:50 Pulse 65 09/22/18 15:50 Resp 21 09/22/18 15:50 BP 173/78 H 09/22/18 15:50 Pulse Ox 95 09/22/18 15:50 ECOG 1 - Constitutional positive no acute distress, positive average body habitus, positive thin, positive cooperative - Routine HEENT Exam Head: Present: normocephalic, atraumatic Eye: Present: EOMI, PERRL, normal accommodation. Absent: conjunctival icterus ENT: Present: mucous membranes moist - Routine Neck Exam Present: supple, full ROM. Absent: JVD, lymphadenopathy, thyromegaly, tenderness, swelling - Routine Chest/Breast/Axilla Exam Axillae: Absent: lymphadenopathy - Detailed Breast Exam left Inspection: Absent: peau d'orange, nipple discharge, area of retraction, discharge Palpation: Present: induration (underneath the surgical wound between 3-4 o'clock) right Inspection: Absent: peau d'orange, nipple discharge, area of retraction, discharge Palpation: Absent: mass, tenderness, induration - Routine Respiratory Exam Present: Clear to auscultation bilaterally. Absent: wheezes - Routine Cardiovascular Exam Present: RRR, S1, S2. Absent: murmur - Routine Abdominal Exam Present: soft, normoactive bowel sounds. Absent: tenderness, distended, organomegaly - Routine Extremities Exam Absent: edema - Routine Neurological Exam Present: alert, oriented X3, CN II-XII intact, normal tone, normal speech. Absent: hearing grossly intact (loss of hearing on the left side due to acoustic neuroma s/p surgical resection.) - Routine Psychiatric Exam Present: normal affect, normal thought process, cooperative, good insight, good judgment Results - Labs reviewed Assessment and Plan (1) Ductal carcinoma in situ (DCIS) of left breast Problem details: Routine screening mammogram decteced left breast DCIS confirmed by biopsy on 05/12/2018. Sheis status post left breast lumpectomy after needle localization on 08/20/2018. The final surgical pathology: DCIS, left breast, 2 o'clock, 5 dispersed foci, each 1 to 2 mm in greatest dimension, micro papillary pattern, grade 1/3, no necrosis, margins within 1 mm in the superior margin the rest of the margin more than 3 mm, ER 3+, 95%. Stage pTis(DCIS) Assessment: I reviewed the pathology report with the patient. 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 Surgically it has been completely removed. Patient has already scheduled to see Dr. Jorge Sutton. I talked with her that she will need adjuvant radiation therapy followed by 5 years of adjuvant endocrine therapy. I will have her come back after she completes the radiation therapy. Plan: 1. Follow up with Dr. Jorge Sutton as scheduled for 09/30/2018 2. DEXA to establish baseline value prior to endocrine therapy 3. Calcium (1200mg)/D (800 units) daily 4. RTC after XRT is complete.
[2018-09-22 15:50] VITALS: BP 173/78; PULSE 65; RESP 21; TEMP 36.7; O2SAT 95
--- NOTE | 2018-09-22 15:53 | ONC.NAV ---
Description: New Pt Intro Activity: Met with pt and spouse to introduce myself as the Pt Mono/TUBING MACHINE OPERATOR, offer services card, and establish initial rapport. Pt is healing and recovering well from her left-sided lumpectomy 2-weeks ago. She feels that the surgery has not interrupted her normal ADL's, other than the expected weakness of her left arm from the surgery. TUBING MACHINE OPERATOR offered encouragement and support, and offered teaching re: the normalcy of the body's need to recover for a full year post-treatment; pt will be anticipating radiation treatment to begin after another couple of weeks. Discussed resources available, support-including the [employer] [employer] Support [employer], as well as the availability of the [facility] [employer]. No immediate needs were identified at this time. Plan: Monitor for assistance and support needs.
--- NOTE | 2019-03-09 10:50 | ONC.SCHED ---
Left patient a VM message to try to schedule her and/or find out if she had done HR therapy and if she is still planning to come back after therapy per Dr. Raman's chart notes
--- NOTE | 2019-03-12 11:18 | ONC.SCHED ---
Talked to Vivi about coming in for HRT. She has refused at this time. She is in Physical Therapy right now and doesnt want to do anything until after she's done there. She will call us to schedule, when she's ready
[2019-03-23 10:10] VITALS: BP 135/78; PULSE 64; RESP 20; TEMP 36.9; O2SAT 98
--- NOTE | 2019-03-23 10:35 | P.PNONC_ITS ---
PN -Subjective Interval history: Vivi Brooks is a 72 year old female. She was seen in 04/2018 by her PCP Lance Trinidad MD for wellness visit. Screening mammogram 04/07/2018 was obtained that showed linear calcifications in the left breast upper outer aspect posterior depth. On 04/30/2018, she underwent unilateral left digital diagnostic mammogram 3D/2D that showed the linear fine pleomorphic calcifications in the left breast suspicious of malignancy. On 05/12/2018, she underwent stereotactic breast biopsy of the left breast lesion. Pathology showed DCIS, Grade ([place]): low, ER 3+, > 95%, micropapillary. Dr. Murray performed left breast lumpectomy after needle localization on 08/20/2018. 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 Patient then completed adjuvant radiation therapy under the care of Dr. Jorge Sutton. She presented here for scheduled follow-up visit. Clinically she says she still feeling tired even months after she completed the radiation therapy. She reports no other new events. She reports ood appetite, no s hortness of breath, no chest pain, no musculoskeletal pain except right thumb pain which was thought to be due to trigger thumb. She denies any hip pain. She also underwent DEXA scan that is to be reviewed. - Patient Self-Reported Symptoms SR Constitution: Fatigue/Malaise SR ears, nose, mouth, throat issues: Swollen glands SR Cardiovascular issues: Dizzy/lightheaded SR Skin issues: Dry skin, Hair loss or scalp prob SR Musculoskeletal issues: Muscle weakness, Cold hands or feet - Additional ROS All systems PM: reviewed and no additional remarkable complaints except as stated Home Medications and Allergies Home Medications Medication Instructions Recorded Confirmed Type doxycycline monohydrate 25 mg PO BID #0 05/14/16 03/23/19 History calcium carb-magnesium ox,carb 200 mg DAILY 03/23/19 03/23/19 History [[place]-Mag] multivitamin DAILY 03/23/19 History omega 3-vzr-iac-fish oil [Fish Oil] 120 mg Q OTHER DAY 03/23/19 03/23/19 History tamoxifen 10 mg PO Q OTHER DAY #30 tab 03/23/19 Rx Allergies Allergy/AdvReac Type Severity Reaction Status Date / Time No Known Drug Allergies Allergy Verified 03/12/19 12:58 Exam Vital signs: Vital Signs Temp Pulse Resp BP Pulse Ox 03/23/19 10:10 98.4 F 64 20 135/78 98 Intake and Output 03/22/19 03/23/19 03/23/19 23:59 07:59 15:59 Other: Weight 48.6 kg Patient Weight 03/23/19 23:59 Weight 48.6 kg ECOG 1 - Constitutional positive no acute distress, positive average body habitus - Routine HEENT Exam Head: Present: normocephalic, atraumatic Eye: Present: EOMI, PERRL, normal accommodation. Absent: conjunctival icterus ENT: Present: mucous membranes moist - Routine Neck Exam Present: supple - Routine Chest/Breast/Axilla Exam Axillae: Absent: lymphadenopathy - Routine Respiratory Exam Present: Clear to auscultation bilaterally. Absent: wheezes - Routine Cardiovascular Exam Present: RRR, S1, S2. Absent: murmur, gallop, rubs - Routine Abdominal Exam Present: soft, normoactive bowel sounds. Absent: tenderness, organomegaly - Routine Extremities Exam Absent: edema - Routine Neurological Exam Present: alert, oriented X3, CN II-XII intact. Absent: sensory deficit, motor deficit - Routine Psychiatric Exam Present: normal affect, normal thought process Results - Labs Reviewed including labs and DEXA scan results Assessment and Plan (1) Ductal carcinoma in situ (DCIS) of left breast Routine screening mammogram detected left breast DCIS confirmed by biopsy on 05/12/2018. Sheis status post left breast lumpectomy after needle localization on 08/20/2018. The final surgical pathology: DCIS, left breast, 2 o'clock, 5 dispersed foci, each 1 to 2 mm in greatest dimension, micro papillary pattern, grade 1/3, no necrosis, margins within 1 mm in the superior margin the rest of the margin more than 3 mm, ER 3+, 95%. Stage pTis(DCIS) I talked with the patient that for DCIS, we usually would recommend adjuvant endocrine therapy. However given the diagnosis of osteoporosis (see below), I do not think aromatase inhibitor is a good option. Then I talked about the tamoxifen use. Recent studies showed that low-dose tamoxifen is as effective as traditional standard dosage. It has a reduced risk of thromboembolism and reduced risk of endometrial carcinoma. At the does schedule is 10 mg every other day for 3 years. I talked with the patient that I will have her come back in about a month to evaluate the tolerability. Patient voiced understanding. Plan: 1. Tamoxifen 10 mg every other day 2. RTC in one month, CBC, CMP (2) Osteoporosis The DEXA scan from September showed severe lumbar spine osteoporosis with T-score as low as -3.9. The bone mineral density at the femoral necks are consistent with osteopenia. I talked with the patient about the use of the calcium and the recommend therapy with bisphosphonates or Xgeva. I have told her to get a dental clearance prior to the treatment. I explained to her and her that these medications are associated with osteonecrosis of the jaw Plan: 1. Dental clearance for Zometa 2. Calcium (1200mg)/D (800 units) daily 3. RTC in one months, ?Zometa if cleared from dentist.
--- NOTE | 2019-04-02 10:46 | PC.NURSE ---
Spoke with [facility] today pt's Tamoxifen was sent out on march 31 and should be arriving in 1 to 2 days. Pt aware.
[2019-04-06 13:49] LABS: Add Manual Diff / Slide Review NO; Basophils Absolute Auto 0 /uL (0-100); Basophils Percent Auto 0.9 % (0-2); Eosinophils Absolute Auto 0 /uL (0-450); Hematocrit 42.3 % (36-46); Hemoglobin 14.2 g/dL (12.0-16.0); Lymphocytes Absolute Auto 1000 /uL (1100-4500); Lymphocytes Percent Auto 23.1 % (25-40); Mean Corpuscular HGB Conc 33.5 % (30-36); Mean Corpuscular Hemoglobin 28.6 PG (26-34); Mean Corpuscular Volume 85.4 fL (80-100); Monocytes Absolute Auto 400 /uL (0-900); Monocytes Percent Auto 9.5 % (3-14); Neutrophils Absolute Auto 2900 /uL (1500-7000); Neutrophils Percent Auto 65.5 % (50-75); Platelet Count 209 X10^3/uL (150-400); Red Blood Cell Count 4.96 X10^6/uL (4.0-5.2); Red Cell Distribution Width 14.4 % (11.6-14.8); White Blood Cell Count 4.4 X10^3/uL (4.5-11.0)
[2019-04-06 14:03] LABS: Alanine Aminotransferase 21 IU/L (9-52); Albumin 4.3 g/dL (3.5-5.0); Albumin Globulin Ratio 1.1 (1.0-2.8); Alkaline Phosphatase 70 U/L (38-126); Aspartate Aminotransferase 29 IU/L (14-36); BUN Creatinine Ratio 18.9 (6-22); Bilirubin Total 0.6 mg/dL (0.2-1.3); Blood Urea Nitrogen 17 mg/dL (7-17); Carbon Dioxide 31 mmol/L (22-32); Chloride 103 mmol/L (98-107); Estimated Glomerular Filt Rate > 60.0 mL/min (>60); Glucose 98 mg/dL (80-110); HEMOLYSIS < 15 (0-50); Potassium 5.2 mmol/L (3.4-5.1); Sodium 142 mmol/L (137-145); Total Protein 8.3 g/dL (6.3-8.2)
[2019-04-20 11:12] VITALS: BP 160/84; PULSE 58; RESP 16; TEMP 36.7; O2SAT 98
--- NOTE | 2019-04-20 11:24 | P.PNONC_ITS ---
PN -Subjective Interval history: Vivi Brooks is a 72 year old female with DCIS here for scheduled follow up visit. Oncology History: She was seen in 04/2018 by her PCP Lance Trinidad MD for wellness visit. Screening mammogram 04/07/2018 was obtained that showed linear calcifications in the left breast upper outer aspect posterior depth. On 04/30/2018, she underwent unilateral left digital diagnostic mammogram 3D/2D that showed the linear fine pleomorphic calcifications in the left breast suspicious of malignancy. On 05/12/2018, she underwent stereotactic breast biopsy of the left breast lesion. Pathology showed DCIS, Grade ([place] Nujim): low, ER 3+, > 95%, micropapillary. Dr. Murray performed left breast lumpectomy after needle localization on 08/20/2018. 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 Patient then completed adjuvant radiation therapy under the care of Dr. Joreg Sutton. She presented here for scheduled follow-up visit. Clinically she says she still feeling tired even months after she completed the radiation therapy. She reports no other new events. She reports ood appetite, no shortness of breath, no chest pain, no musculoskeletal pain except right thumb pain which was thought to be due to trigger thumb. She denies any hip pain. She also underwent DEXA scan that is to be reviewed. Interim Events: Since her last visit, patient was started on tamoxifen 10 mg once every other day based on the TAM01 trial. Patient has tolerated very well. - Patient Self-Reported Symptoms SR Constitution: Night Sweats SR ears, nose, mouth, throat issues: Swollen glands SR Cardiovascular issues: Dizzy/lightheaded SR Skin issues: Dry skin SR Musculoskeletal issues: Muscle weakness, Cold hands or feet SR Endocrine issues: Hot flashes - Additional ROS All systems PM: reviewed and no additional remarkable complaints except as stated Home Medications and Allergies Home Medications Medication Instructions Recorded Confirmed Type doxycycline monohydrate 25 mg PO BID #0 05/14/16 03/23/19 History calcium carb-magnesium ox,carb 200 mg DAILY 03/23/19 03/23/19 History [Nelson-Mag] multivitamin DAILY 03/23/19 History omega 8-ird-yws-fish oil [Fish Oil] 120 mg Q OTHER DAY 03/23/19 03/23/19 History tamoxifen 10 mg PO Q OTHER DAY #30 tab 03/23/19 Rx Allergies Allergy/AdvReac Type Severity Reaction Status Date / Time No Known Drug Allergies Allergy Verified 03/12/19 12:58 Exam Vital signs: Vital Signs Temp Pulse Resp BP Pulse Ox 04/20/19 11:12 98.0 F 58 L 16 160/84 H 98 Intake and Output 04/19/19 04/20/19 04/20/19 23:59 07:59 15:59 Other: Weight 48.6 kg Patient Weight 04/20/19 23:59 Weight 48.6 kg Narrative: Gen: WDWN, NAD, pleasant and cooperative. HEENT: NCAT, EOMI, PERRLA, anicteric sclera. Neck: Supple, No palpable thyromegaly or lymphadenopathy. Respiratory: CTAB, no wheezes audible. No JVD Cardiovascular: RRR, S1 and S2 normal, no M/G/R. Abdomen: Soft, NTND, BS normal, no palpable organomegaly Extremities: No LE pitting edema. Lymphatic: no palpable lymph nodes in the neck, axillae, or groins. Neurological: AOx3, CN II-XII grossly intact. No focal motor or sensory deficit. Psychiatric: Good judgment and insight; normal affect; normal thought process; cooperative, no depression, no anxiety. Breast Exam: deferred Results - Labs Laboratory Last Values WBC 4.4 X10^3/uL (4.5-11.0) L 04/06/19 13:23 RBC 4.96 X10^6/uL (4.0-5.2) 04/06/19 13:23 Hgb 14.2 g/dL (12.0-16.0) 04/06/19 13:23 Hct 42.3 % (36-46) 04/06/19 13:23 MCV 85.4 fL (80-100) 04/06/19 13:23 MCH 28.6 PG (26-34) 04/06/19 13:23 MCHC 33.5 % (30-36) 04/06/19 13:23 RDW 14.4 % (11.6-14.8) 04/06/19 13:23 Plt Count 209 X10^3/uL (150-400) 04/06/19 13:23 Neut % (Auto) 65.5 % (50-75) 04/06/19 13:23 Lymph % (Auto) 23.1 % (25-40) L 04/06/19 13:23 Hettinger % (Auto) 9.5 % (3-14) 04/06/19 13:23 Eos % (Auto) 1.0 % (2-4) L 04/06/19 13:23 Baso % (Auto) 0.9 % (0-2) 04/06/19 13:23 Neut # (Auto) 2900 /uL (9049-9466) 04/06/19 13:23 Lymph # (Auto) 1000 /uL (3580-2241) L 04/06/19 13:23 Hettinger # (Auto) 400 /uL (0-900) 04/06/19 13:23 Eos # (Auto) 0 /uL (0-450) 04/06/19 13:23 Baso # (Auto) 0 /uL (0-100) 04/06/19 13:23 Sodium 142 mmol/L (137-145) 04/06/19 13:23 Potassium 5.2 mmol/L (3.4-5.1) H 04/06/19 13:23 Chloride 103 mmol/L (98-107) 04/06/19 13:23 Carbon Dioxide 31 mmol/L (22-32) 04/06/19 13:23 BUN 17 mg/dL (7-17) 04/06/19 13:23 Creatinine 0.90 mg/dL (0.52-1.04) 04/06/19 13:23 Estimated GFR > 60.0 mL/min (>60) 04/06/19 13:23 BUN/Creatinine Ratio 18.9 (6-22) 04/06/19 13:23 Glucose 98 mg/dL (80-110) 04/06/19 13:23 Calcium 10.0 mg/dL (8.4-10.2) 04/06/19 13:23 Total Bilirubin 0.6 mg/dL (0.2-1.3) 04/06/19 13:23 AST 29 IU/L (14-36) 04/06/19 13:23 ALT 21 IU/L (9-52) 04/06/19 13:23 Alkaline Phosphatase 70 U/L (38-126) 04/06/19 13:23 Total Protein 8.3 g/dL (6.3-8.2) H 04/06/19 13:23 Albumin 4.3 g/dL (3.5-5.0) 04/06/19 13:23 Globulin 4.0 g/dL (1.7-4.1) 04/06/19 13:23 Albumin/Globulin Ratio 1.1 (1.0-2.8) 04/06/19 13:23 Assessment and Plan (1) Ductal carcinoma in situ (DCIS) of left breast Routine screening mammogram detected left breast DCIS confirmed by biopsy on 05/12/2018. Sheis status post left breast lumpectomy after needle localization on 08/20/2018. The final surgical pathology: DCIS, left breast, 2 o'clock, 5 dispersed foci, each 1 to 2 mm in greatest dimension, micro papillary pattern, grade 1/3, no necrosis, margins within 1 mm in the superior margin the rest of the margin more than 3 mm, ER 3+, 95%. Stage pTis(DCIS) She tolerated Taxmoxofen very well with mild hot flashes. I will continue the treatment. Plan: Tamoxifen 10 mg every other day (2) Osteoporosis The DEXA scan from September showed severe lumbar spine osteoporosis with T-score as low as -3.9. The bone mineral density at the femoral necks are consistent with osteopenia. I talked with the patient about the use of the calcium and the recommend therapy with bisphosphonates or Xgeva. I have told her to get a dental clearance prior to the treatment. I explained to her and her that these medications are associated with osteonecrosis of the jaw I called her dentist Dr. Cooley's office about the clearance for Zometa. Patient is to see Dr. Coolye on 04/22/2019. Plan: 1. Dental clearance for Zometa 2. Calcium (1200mg)/D (800 units) daily 3. RTC in 3 weeks, ?Zometa if cleared from dentist.
--- NOTE | 2019-05-18 13:13 | ONC.PN ---
PN -Subjective Interval history: Vivi Brooks is a 72 year old female with DCIS here for scheduled follow up visit. Oncology History: She was seen in 04/2018 by her PCP Lance Trinidad MD for wellness visit. Screening mammogram 04/07/2018 was obtained that showed linear calcifications in the left breast upper outer aspect posterior depth. On 04/30/2018, she underwent unilateral left digital diagnostic mammogram 3D/2D that showed the linear fine pleomorphic calcifications in the left breast suspicious of malignancy. On 05/12/2018, she underwent stereotactic breast biopsy of the left breast lesion. Pathology showed DCIS, Grade (Van Nujim): low, ER 3+, > 95%, micropapillary. Dr. Murray performed left breast lumpectomy after needle localization on 08/20/2018. 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 Patient then completed adjuvant radiation therapy under the care of Dr. Jorge Sutton. She presented here for scheduled follow-up visit. Clinically she says she still feeling tired even months after she completed the radiation therapy. She reports no other new events. She reports ood appetite, no shortness of breath, no chest pain, no musculoskeletal pain except right thumb pain which was thought to be due to trigger thumb. She denies any hip pain. She also underwent DEXA scan that is to be reviewed. Interim Events: Since her last visit, patient was started on tamoxifen 10 mg once every other day based on the TAM01 trial. Patient has tolerated very well. No new complaints. - Patient Self-Reported Symptoms SR Constitution: Night Sweats SR ears, nose, mouth, throat issues: Swollen glands SR Cardiovascular issues: Dizzy/lightheaded SR Skin issues: Dry skin SR Musculoskeletal issues: Muscle weakness, Cold hands or feet SR Endocrine issues: Hot flashes - Additional ROS All systems PM: reviewed and no additional remarkable complaints except as stated Home Medications and Allergies Home Medications Medication Instructions Recorded Confirmed Type doxycycline monohydrate 25 mg PO BID #0 05/14/16 03/23/19 History calcium carb-magnesium ox,carb 200 mg DAILY 03/23/19 03/23/19 History [Nelson-Mag] multivitamin DAILY 03/23/19 History omega 5-ddk-jeh-fish oil [Fish Oil] 120 mg Q OTHER DAY 03/23/19 03/23/19 History tamoxifen 10 mg PO Q OTHER DAY #30 tab 03/23/19 Rx Allergies Allergy/AdvReac Type Severity Reaction Status Date / Time No Known Drug Allergies Allergy Verified 03/12/19 12:58 Exam Vital signs: Intake and Output 05/17/19 05/18/19 05/18/19 23:59 07:59 15:59 Other: Weight 48.6 kg Patient Weight 05/18/19 23:59 Weight 48.6 kg Narrative: I did not perform full physical examination. Patient appears comfortable, not in any acute respiratory distress. Pleasant and cooperative. ECOG 1 Results - Labs Laboratory Last Values WBC 4.4 X10^3/uL (4.5-11.0) L 04/06/19 13:23 RBC 4.96 X10^6/uL (4.0-5.2) 04/06/19 13:23 Hgb 14.2 g/dL (12.0-16.0) 04/06/19 13:23 Hct 42.3 % (36-46) 04/06/19 13:23 MCV 85.4 fL (80-100) 04/06/19 13:23 MCH 28.6 PG (26-34) 04/06/19 13:23 MCHC 33.5 % (30-36) 04/06/19 13:23 RDW 14.4 % (11.6-14.8) 04/06/19 13:23 Plt Count 209 X10^3/uL (150-400) 04/06/19 13:23 Neut % (Auto) 65.5 % (50-75) 04/06/19 13:23 Lymph % (Auto) 23.1 % (25-40) L 04/06/19 13:23 [place] % (Auto) 9.5 % (3-14) 04/06/19 13:23 Eos % (Auto) 1.0 % (2-4) L 04/06/19 13:23 Baso % (Auto) 0.9 % (0-2) 04/06/19 13:23 Neut # (Auto) 2900 /uL (0169-4784) 04/06/19 13:23 Lymph # (Auto) 1000 /uL (3282-0948) L 04/06/19 13:23 [place] # (Auto) 400 /uL (0-900) 04/06/19 13:23 Eos # (Auto) 0 /uL (0-450) 04/06/19 13:23 Baso # (Auto) 0 /uL (0-100) 04/06/19 13:23 Sodium 142 mmol/L (137-145) 04/06/19 13:23 Potassium 5.2 mmol/L (3.4-5.1) H 04/06/19 13:23 Chloride 103 mmol/L (98-107) 04/06/19 13:23 Carbon Dioxide 31 mmol/L (22-32) 04/06/19 13:23 BUN 17 mg/dL (7-17) 04/06/19 13:23 Creatinine 0.90 mg/dL (0.52-1.04) 04/06/19 13:23 Estimated GFR > 60.0 mL/min (>60) 04/06/19 13:23 BUN/Creatinine Ratio 18.9 (6-22) 04/06/19 13:23 Glucose 98 mg/dL (80-110) 04/06/19 13:23 Calcium 10.0 mg/dL (8.4-10.2) 04/06/19 13:23 Total Bilirubin 0.6 mg/dL (0.2-1.3) 04/06/19 13:23 AST 29 IU/L (14-36) 04/06/19 13:23 ALT 21 IU/L (9-52) 04/06/19 13:23 Alkaline Phosphatase 70 U/L (38-126) 04/06/19 13:23 Total Protein 8.3 g/dL (6.3-8.2) H 04/06/19 13:23 Albumin 4.3 g/dL (3.5-5.0) 04/06/19 13:23 Globulin 4.0 g/dL (1.7-4.1) 04/06/19 13:23 Albumin/Globulin Ratio 1.1 (1.0-2.8) 04/06/19 13:23 Assessment and Plan (1) Ductal carcinoma in situ (DCIS) of left breast Overview: Routine screening mammogram detected left breast DCIS confirmed by biopsy on 05/12/2018. She is status post left breast lumpectomy after needle localization on 08/20/2018. The final surgical pathology: DCIS, left breast, 2 o'clock, 5 dispersed foci, each 1 to 2 mm in greatest dimension, micro papillary pattern, grade 1/3, no necrosis, margins within 1 mm in the superior margin the rest of the margin more than 3 mm, ER 3+, 95%. Stage pTis(DCIS) She tolerated Taxmoxofen very well with mild hot flashes. I will continue the treatment. Plan: Cont Tamoxifen 10 mg every other day Screening mammogram due this month, will follow the results RTC in 6 months, CBC, CMP (2) Osteoporosis The DEXA scan from September showed severe lumbar spine osteoporosis with T-score as low as -3.9. The bone mineral density at the femoral necks are consistent with osteopenia. I talked with the patient about the use of the calcium and the recommend therapy with bisphosphonates or Xgeva. We had clearance from Dr. Cooley's office Plan: 1. Continue Calcium (1200mg)/D (800 units) daily 2. OK to proceed to Zometa today
[2019-05-18 14:21] VITALS: BP 160/91; PULSE 66; RESP 16; TEMP 36.2; O2SAT 96
[2019-05-18] MEDS: ZOLEDRONIC ACID 4 MG in SODIUM CHLORIDE 0.9% 100 ML 315 ML IV (15:30)
[2019-10-09 16:40] LABS: Add Manual Diff / Slide Review NO; Basophils Absolute Auto 100 /uL (0-100); Eosinophils Absolute Auto 0 /uL (0-450); Eosinophils Percent Auto 0.9 % (2-4); Hematocrit 39.5 % (36-46); Hemoglobin 13.4 g/dL (12.0-16.0); Lymphocytes Absolute Auto 1300 /uL (1100-4500); Lymphocytes Percent Auto 25.7 % (25-40); Mean Corpuscular HGB Conc 33.9 % (30-36); Mean Corpuscular Hemoglobin 29.4 PG (26-34); Mean Corpuscular Volume 86.8 fL (80-100); Monocytes Absolute Auto 400 /uL (0-900); Monocytes Percent Auto 8.9 % (3-14); Neutrophils Absolute Auto 3100 /uL (1500-7000); Neutrophils Percent Auto 63.5 % (50-75); Platelet Count 195 X10^3/uL (150-400); Red Blood Cell Count 4.55 X10^6/uL (4.0-5.2); Red Cell Distribution Width 13.8 % (11.6-14.8); White Blood Cell Count 4.9 X10^3/uL (4.5-11.0)
[2019-10-09 16:51] LABS: Alanine Aminotransferase 21 IU/L (<35); Albumin 4.1 g/dL (3.5-5.0); Albumin Globulin Ratio 1.1 (1.0-2.8); Alkaline Phosphatase 59 U/L (38-126); Aspartate Aminotransferase 30 IU/L (14-36); BUN Creatinine Ratio 15.6 (6-22); Bilirubin Total 0.2 mg/dL (0.2-1.3); Blood Urea Nitrogen 14 mg/dL (7-17); Calcium 9.4 mg/dL (8.4-10.2); Carbon Dioxide 29 mmol/L (22-32); Chloride 104 mmol/L (98-107); Estimated Glomerular Filt Rate > 60.0 mL/min (>60); Globulin 3.8 g/dL (1.7-4.1); Glucose 94 mg/dL (80-110); HEMOLYSIS < 15 (0-50); Potassium 4.3 mmol/L (3.4-5.1); Sodium 141 mmol/L (137-145); Total Protein 7.9 g/dL (6.3-8.2)
--- NOTE | 2019-11-02 14:54 | ONC.PN ---
PN -Subjective Interval history: Vivi Brooks is a 72 year old female with DCIS here for scheduled follow up visit. Oncology History: She was seen in 04/2018 by her PCP Lance Trinidad MD for wellness visit. Screening mammogram 04/07/2018 was obtained that showed linear calcifications in the left breast upper outer aspect posterior depth. On 04/30/2018, she underwent unilateral left digital diagnostic mammogram 3D/2D that showed the linear fine pleomorphic calcifications in the left breast suspicious of malignancy. On 05/12/2018, she underwent stereotactic breast biopsy of the left breast lesion. Pathology showed DCIS, Grade (Van Nujim): low, ER 3+, > 95%, micropapillary. Dr. Murray performed left breast lumpectomy after needle localization on 08/20/2018. 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 Patient then completed adjuvant radiation therapy under the care of Dr. Jorge Sutton, that was completed on 10/2018 Since 03/2019, she has been on Tamoxifen 10 mg every other day.. Interim Events: Patient has tolerated the tamoxifen 10 mg every other day very. Patient has mild nightly hot flashes. No other complaints. She denies any new lumps or bumps. She denies any new musculoskeletal pain. She denies any weight loss. She denies any shortness breath or chest pain. She denies any lower extremity pain or swelling. Patient underwent screening mammogram in June 2019 that showed no mammographic evidence of malignancy. One year follow-up is recommended. - Patient Self-Reported Symptoms SR Constitution: Night Sweats SR ears, nose, mouth, throat issues: Swollen glands SR Cardiovascular issues: Dizzy/lightheaded SR Skin issues: Dry skin SR Musculoskeletal issues: Muscle weakness, Cold hands or feet SR Neuro issues: Lightheaded/dizzy SR Endocrine issues: Hot flashes - Additional ROS All systems PM: reviewed and no additional remarkable complaints except as stated Home Medications and Allergies Home Medications Medication Instructions Recorded Confirmed Type doxycycline monohydrate 25 mg PO BID #0 05/14/16 09/24/19 History calcium carb-magnesium ox,carb 200 mg DAILY 03/23/19 09/24/19 History [Nelson-Mag] multivitamin DAILY 03/23/19 09/24/19 History omega 5-zet-tsr-fish oil [Fish Oil] 120 mg Q OTHER DAY 03/23/19 09/24/19 History tamoxifen 10 mg PO Q OTHER DAY #30 tab 03/23/19 09/24/19 Rx Allergies Allergy/AdvReac Type Severity Reaction Status Date / Time No Known Drug Allergies Allergy Verified 09/24/19 13:41 Exam Vital signs: 11/02/19 15:11 Last Vital Signs Temp 97.7 F 11/02/19 14:58 Pulse 66 11/02/19 14:58 Resp 16 11/02/19 14:58 BP 172/88 H 11/02/19 14:58 Pulse Ox 100 11/02/19 14:58 Narrative: ECOG 1 Gen: WDWN, NAD, pleasant and cooperative. HEENT: NCAT, EOMI, PERRLA, anicteric sclera. Neck: Supple, No palpable thyromegaly or lymphadenopathy. Respiratory: CTAB, no wheezes audible. No JVD Cardiovascular: RRR, S1 and S2 normal, no M/G/R. Abdomen: Soft, NTND, BS normal, no palpable organomegaly Extremities: No LE pitting edema. Lymphatic: no palpable lymph nodes in the neck, axillae Neurological: AOx3, CN II-XII grossly intact. No focal motor or sensory deficit. Psychiatric: Good judgment and insight; normal affect; normal thought process; no depression, no anxiety. Breast Exam: deferred Results - Labs Laboratory Last Values WBC 4.9 X10^3/uL (4.5-11.0) 10/09/19 16:30 RBC 4.55 X10^6/uL (4.0-5.2) 10/09/19 16:30 Hgb 13.4 g/dL (12.0-16.0) 10/09/19 16:30 Hct 39.5 % (36-46) 10/09/19 16:30 MCV 86.8 fL (80-100) 10/09/19 16:30 MCH 29.4 PG (26-34) 10/09/19 16:30 MCHC 33.9 % (30-36) 10/09/19 16:30 RDW 13.8 % (11.6-14.8) 10/09/19 16:30 Plt Count 195 X10^3/uL (150-400) 10/09/19 16:30 Neut % (Auto) 63.5 % (50-75) 10/09/19 16:30 Lymph % (Auto) 25.7 % (25-40) 10/09/19 16:30 [place] % (Auto) 8.9 % (3-14) 10/09/19 16:30 Eos % (Auto) 0.9 % (2-4) L 10/09/19 16:30 Baso % (Auto) 1.0 % (0-2) 10/09/19 16:30 Neut # (Auto) 3100 /uL (5416-1320) 10/09/19 16:30 Lymph # (Auto) 1300 /uL (2715-1874) 10/09/19 16:30 [place] # (Auto) 400 /uL (0-900) 10/09/19 16:30 Eos # (Auto) 0 /uL (0-450) 10/09/19 16:30 Baso # (Auto) 100 /uL (0-100) 10/09/19 16:30 Sodium 141 mmol/L (137-145) 10/09/19 16:30 Potassium 4.3 mmol/L (3.4-5.1) 10/09/19 16:30 Chloride 104 mmol/L (98-107) 10/09/19 16:30 Carbon Dioxide 29 mmol/L (22-32) 10/09/19 16:30 BUN 14 mg/dL (7-17) 10/09/19 16:30 Creatinine 0.90 mg/dL (0.52-1.04) 10/09/19 16:30 Estimated GFR > 60.0 mL/min (>60) 10/09/19 16:30 BUN/Creatinine Ratio 15.6 (6-22) 10/09/19 16:30 Glucose 94 mg/dL (80-110) 10/09/19 16:30 Calcium 9.4 mg/dL (8.4-10.2) 10/09/19 16:30 Total Bilirubin 0.2 mg/dL (0.2-1.3) 10/09/19 16:30 AST 30 IU/L (14-36) 10/09/19 16:30 ALT 21 IU/L (<35) 10/09/19 16:30 Alkaline Phosphatase 59 U/L (38-126) 10/09/19 16:30 Total Protein 7.9 g/dL (6.3-8.2) 10/09/19 16:30 Albumin 4.1 g/dL (3.5-5.0) 10/09/19 16:30 Globulin 3.8 g/dL (1.7-4.1) 10/09/19 16:30 Albumin/Globulin Ratio 1.1 (1.0-2.8) 10/09/19 16:30 Assessment and Plan (1) Ductal carcinoma in situ (DCIS) of left breast Overview: Routine screening mammogram detected left breast DCIS confirmed by biopsy on 05/12/2018. She is status post left breast lumpectomy after needle localization on 08/20/2018. The final surgical pathology: DCIS, left breast, 2 o'clock, 5 dispersed foci, each 1 to 2 mm in greatest dimension, micro papillary pattern, grade 1/3, no necrosis, margins within 1 mm in the superior margin the rest of the margin more than 3 mm, ER 3+, 95%. Stage pTis(DCIS). Patient then completed adjuvant radiation therapy under the care of Dr. Jorge Sutton, that was completed on 10/2018 Assessment: She tolerated Taxmoxofen very well with mild hot flashes. I will continue the treatment. Plan: Cont Tamoxifen 10 mg every other day Screening mammogram in Jun 2020 RTC after mammogram, CBC, CMP (2) Osteoporosis Overview: The DEXA scan from September showed severe lumbar spine osteoporosis with T-score as low as -3.9. The bone mineral density at the femoral necks are consistent with osteopenia. After clearance from Dr. Cooley's office, she was started on Zometa infusion on 05/18/2019 Assessment: Clinically, patient has reported no new signs or symptoms. Patient denies any jaw pain. Plan: 1. Continue Calcium (1200mg)/D (800 units) daily 2. RTC in Jun 2020, CBC, CMP and Zometa
[2019-11-02 14:58] VITALS: BP 172/88; PULSE 66; RESP 16; TEMP 36.5; O2SAT 100
[2020-10-13 14:42] LABS: Blood Urea Nitrogen 16 mg/dL (7-17); Estimated Glomerular Filt Rate > 60.0 mL/min (>60)
--- NOTE | 2020-12-06 08:54 | ONC.SCHED ---
Left msg. for patient to schedule fup with labs prior. I was given this by Juan.
--- NOTE | 2021-06-12 14:13 | PC.NURSE ---
Addendum entered by Juan Castro R.N. 06/12/21 14:40: She called to see if she could come in and just have blood work done. she is hesitant to come in because she is social isolating because of COVID-19 and is unvaccinated. This RN explained that it is not our usual practice to prescribed medication to a pt without seeing them for more than a year. Pt reports no new symptoms or complaints. Making the provider aware with this note. Please advise. Original Note: Pt called for a Rx refill, but pt is 1.5 years overdue to see the provider. Please schedule her for an appointment before filling the Rx. Thanks! Pt is aware.
--- NOTE | 2021-06-13 09:59 | PC.NURSE ---
Addendum entered by Roxana Alvarez R.N. 06/13/21 12:46: pt called back and left message stating, I have been social distancing this whole time and I will not be coming in. If the doctor can't refill by looking at labs, then I'M DONE. Original Note: appt: This RN called and left message for pt to schedule appt with Dr. Raman prior to getting RX refill. Dr. Raman agrees that pt needs to see him for Rx refill. It has been 1.5 yrs since last visit with Dr. Raman.
== END ==
PROVIDERS: PCP Family Medicine; Visit Provider Internal Medicine Hematology & Oncology
DX: D05.12 Intraductal carcinoma in situ of left breast (principal); R22.1 Localized swelling, mass and lump, neck
CPT/HCPCS: 36415; 80053; 82565; 84520; 85025; 96365; 99204; 99214; J3489

== ENCOUNTER → 2020-10-13 14:37 | Outpatient (CLI) | payer MEDICARE, SELFPAY ==
--- NOTE | 2020-10-13 14:38 | DI.CT.S_ITS ---
PROCEDURE: CT SOFT TISSUE NECK W CON INDICATIONS: R neck mass next to larynx TECHNIQUE: After the administration of intravenous contrast, 3.0 mm axial sections acquired from the sella to the aortic arch. Additional oblique axial 3.0 mm sections acquired through the pharynx. 3 mm thick coronal and sagittal reformats were generated. For radiation dose reduction, the following was used: automated exposure control. COMPARISON: [facility], CT, CT SPARROW, 09/30/2018, 14:38. FINDINGS: Image quality: Excellent. Lymph nodes: No enlarged lymph nodes seen throughout the neck. Vessels: Visualized vasculature appears patent. Neck spaces: The oropharynx, nasopharynx, and pharynx demonstrate no mucosal lesions. The vocal cords, false vocal cords, pyriform sinuses, epiglottis, vallecula, and tongue base all appear normal. Extramucosal spaces appear unremarkable. Glands: The parotid and submandibular glands appear normal. Thyroid gland demonstrates heterogeneous enlargement of the left thyroid lobe. This is unchanged compared to 09/30/2018. Miscellaneous: Visualized brain and orbits appear normal. Lung apices appear clear. Superficial soft tissues appear normal. Bones: No suspicious bony lesions. Visualized sinuses and mastoids appear unremarkable. IMPRESSION: 1. No distinct mass is clearly identified. If concern persists, direct visualization with ENT is recommended. 2. Unchanged appearance of heterogeneous enlargement of the left thyroid lobe. It is unchanged compared to 2019. As clinically indicated, thyroid ultrasound may be obtained. Dictated by: Yesy Benson M.D. on 10/13/2020 at 16:31 Approved by: Yesy Benson M.D. on 10/13/2020 at 16:38
== END ==
PROVIDERS: PCP Family Medicine; Referring Provider Family Medicine; Visit Provider Family Medicine
DX: R22.1 Localized swelling, mass and lump, neck (principal); E04.9 Nontoxic goiter, unspecified; Z87.891 Personal history of nicotine dependence
CPT/HCPCS: 70491; Q9967

== ENCOUNTER → 2020-11-30 16:14 | Outpatient (CLI) | payer MEDICARE, SELFPAY ==
--- NOTE | 2020-11-30 | DI.MG.S_ITS ---
BILATERAL DIGITAL SCREENING MAMMOGRAM 3D/2D WITH CAD POST LUMPECTOMY: 11/30/2020 CLINICAL: Routine screening. Breast cancer. Comparison is made to exams dated: 06/09/2019 mammogram, 04/30/2018 mammogram, 04/07/2018 mammogram, 04/25/2016 mammogram, and 04/12/2016 mammogram - [facility]. There are scattered fibroglandular elements in both breasts. Current study was also evaluated with a Computer Aided Detection (CAD) system. There are benign calcifications in both breasts. There also are benign post operative findings in the left breast. No significant masses, calcifications, or other findings are seen in either breast. There has been no significant interval change. IMPRESSION: BENIGN There is no mammographic evidence of malignancy. A 1 year screening mammogram is recommended. This exam was interpreted at Station ID: [id number]. NOTE: For mammograms, a report in lay terms will be sent to the patient. Approximately 15% of breast malignancies will not be visualized mammographically. In the management of a palpable breast mass, a negative mammogram must not discourage biopsy of a clinically suspicious lesion. Electronically Signed By: Rosario romero/david:11/30/2020 16:43:21 copy to: JANETH CHAVEZ letter sent: Normal Exam ACR BI-RADS Category 2: Benign Finding(s) 3342F
== END ==
PROVIDERS: PCP Family Medicine; Referring Provider Family Medicine; Visit Provider Family Medicine
DX: Z12.31 Encounter for screening mammogram for malignant neoplasm of breast (principal); Z85.3 Personal history of malignant neoplasm of breast
CPT/HCPCS: 77063; 77067

== ENCOUNTER → 2022-02-23 08:53 | Outpatient (CLI) | payer MEDICARE, SELFPAY ==
--- NOTE | 2022-02-23 | DI.MG.S_ITS ---
BILATERAL DIGITAL SCREENING MAMMOGRAM 3D/2D WITH CAD: 02/23/2022 CLINICAL: Routine screening. Personal history of left breast cancer. Comparison is made to exams dated: 11/30/2020 mammogram, 06/09/2019 mammogram, and 04/30/2018 mammogram - [facility]. There are scattered fibroglandular elements in both breasts. Current study was also evaluated with a Computer Aided Detection (CAD) system. There are benign calcifications in both breasts. There also are benign post operative findings in the left breast. No significant masses, calcifications, or other findings are seen in either breast. There has been no significant interval change. IMPRESSION: BENIGN There is no mammographic evidence of malignancy. A 1 year screening mammogram is recommended. This exam was interpreted at Station ID: [id number]. NOTE: For mammograms, a report in lay terms will be sent to the patient. Approximately 15% of breast malignancies will not be visualized mammographically. In the management of a palpable breast mass, a negative mammogram must not discourage biopsy of a clinically suspicious lesion. Electronically Signed By: Lance Ortiz M.D., jr/david:02/23/2022 10:38:21 copy to: JANETH CHAVEZ letter sent: Normal Exam ACR BI-RADS Category 2: Benign Finding(s) 3342F
== END ==
PROVIDERS: PCP Family Medicine; Referring Provider Family Medicine; Visit Provider Family Medicine
DX: Z12.31 Encounter for screening mammogram for malignant neoplasm of breast (principal); Z85.3 Personal history of malignant neoplasm of breast
CPT/HCPCS: 77063; 77067

== ENCOUNTER → 2022-04-11 12:09 | Outpatient (CLI) | payer MEDICARE, SELFPAY | PROVIDERS: PCP Family Medicine; Visit Provider Physician Assistant | DX: K13.79 Other lesions of oral mucosa (principal) | CPT/HCPCS: 87070; 87205 ==

== ENCOUNTER → 2022-04-25 09:59 | Outpatient (CLI) | payer MEDICARE, SELFPAY ==
[2022-04-25 10:55] LABS: Add Manual Diff / Slide Review NO; Basophils Absolute Auto 0 /uL (0-100); Basophils Percent Auto 0.7 % (0-2); Eosinophils Absolute Auto 100 /uL (0-450); Eosinophils Percent Auto 1.4 % (2-4); Hematocrit 40.6 % (36-46); Hemoglobin 13.7 g/dL (12.0-16.0); Lymphocytes Absolute Auto 1300 /uL (1100-4500); Lymphocytes Percent Auto 27.8 % (25-40); Mean Corpuscular HGB Conc 33.7 % (30-36); Mean Corpuscular Hemoglobin 28.2 PG (26-34); Mean Corpuscular Volume 83.9 fL (80-100); Monocytes Absolute Auto 500 /uL (0-900); Monocytes Percent Auto 10.3 % (3-14); Neutrophils Absolute Auto 2700 /uL (1500-7000); Neutrophils Percent Auto 59.8 % (50-75); Platelet Count 189 X10^3/uL (150-400); Red Blood Cell Count 4.84 X10^6/uL (4.0-5.2); Red Cell Distribution Width 13.6 % (11.6-14.8); White Blood Cell Count 4.5 X10^3/uL (4.5-11.0)
[2022-04-25 11:55] LABS: Alanine Aminotransferase 17 IU/L (<35); Albumin Globulin Ratio 1.1 (1.0-2.8); Alkaline Phosphatase 62 U/L (38-126); Aspartate Aminotransferase 28 IU/L (14-36); BUN Creatinine Ratio 19.3 (6-22); Bilirubin Total 0.4 mg/dL (0.2-1.3); Blood Urea Nitrogen 17 mg/dL (7-17); Calcium 9.8 mg/dL (8.4-10.2); Carbon Dioxide 33 mmol/L (22-32); Chloride 103 mmol/L (98-107); Cholesterol 237 mg/dL (140-199); Estimated Glomerular Filt Rate > 60 mL/min (>60); Globulin 3.7 g/dL (1.7-4.1); Glucose 87 mg/dL (80-110); HDL Cholesterol 51 mg/dL (40-60); HEMOLYSIS < 15 (0-50); LDL Cholesterol Calculated 146 mg/dL (<100); Potassium 4.5 mmol/L (3.4-5.1); Sodium 140 mmol/L (137-145); Total Protein 7.7 g/dL (6.3-8.2); Triglycerides 201 mg/dL (35-150)
[2022-04-25 12:09] LABS: Vitamin D 25 Hydroxy (D3) 105 ng/mL (30.0-100.0)
[2022-04-25 12:22] LABS: TSH w/ Reflex to FT4 5.12 uIU/mL (0.47-4.68)
[2022-04-25 12:42] LABS: Vitamin B12 689 pg/mL (239-931)
[2022-04-25 12:58] LABS: Creatinine Urine Random 93.7 mg/dL
[2022-04-25 13:02] LABS: Microalbumi Creatinin Ratio Ur 8.5 ug/mg CR (<30); Microalbumin Urine Random 0.8 mg/dL (0-1.6)
[2022-04-25 15:01] LABS: Free T4, Direct Thyroxine 0.97 ng/dL (0.78-2.19)
== END ==
PROVIDERS: PCP Family Medicine; Referring Provider Physician Assistant; Visit Provider Physician Assistant
DX: E03.9 Hypothyroidism, unspecified (principal); M81.0 Age-related osteoporosis without current pathological fracture; K13.79 Other lesions of oral mucosa; L60.3 Nail dystrophy; R07.9 Chest pain, unspecified; E78.2 Mixed hyperlipidemia; I10 Essential (primary) hypertension
CPT/HCPCS: 36415; 80053; 80061; 82043; 82306; 82570; 82607; 84439; 84443; 85025

== ENCOUNTER → 2022-05-16 11:22 | Outpatient (CLI) | payer MEDICARE, SELFPAY ==
--- NOTE | 2022-05-16 11:23 | DI.MRI.S_ITS ---
PROCEDURE: MR HEAD/BRAIN WO/W CON INDICATIONS: chronic headaches; multiple neuro sxs; hx of acoustic neuroma TECHNIQUE: Noncontrast axial T1 spin echo, axial T2 fast spin echo, sagittal and axial FLAIR, axial gradient echo, axial diffusion and ADC through the brain. After the administration of contrast, axial and coronal and sagittal T1 spin echo with fat saturation through the brain, coronal thin-slice T1 spin echo with fat saturation through the internal auditory canals. COMPARISON: Located [facility], MR, BRAIN (IAC) W&WO CONTRAST, 08/08/2016, 17:43. Located Within [facility], MR, BRAIN (IAC) W AND WO CONTRAST, 04/28/2009, 13:02. Located Within [facility], MR, BRAIN W&WO CONTRAST, 02/16/2015, 18:52. FINDINGS: Image quality: Excellent. Internal auditory canals: Prior surgery from a left vestibular schwannoma can be seen. No findings recurrent masses are seen. No signal abnormal enhancement can be seen. CSF spaces: Ventricles are normal in size and shape. Basal cisterns are patent. No extra-axial fluid collections. Brain: No acute intracranial bleeds or mass effects. Ward-white matter interface is intact. No abnormal intracranial enhancement. Diffusion weighted images demonstrate no acute ischemic insults. Brainstem appears normal. Normal intravascular flow voids are present. Note is made of age-appropriate brain parenchymal volume loss and chronic small vessel ischemic changes. Skull and face: Calvarial marrow signal is normal. Orbits appear normal. Sinuses: Sinuses and mastoids appear clear. IMPRESSION: Stable postoperative change, with removal of the previously seen left-sided vestibular schwannoma. No rico abnormal enhancement can be seen within the postoperative bed. No imaging explanation is found for this patient's presenting symptoms. Dictated by: Nahun Barakat M.D. on 05/16/2022 at 12:11 Approved by: Nahun Barakat M.D. on 05/16/2022 at 12:15
== END ==
PROVIDERS: PCP Family Medicine; Referring Provider Physician Assistant; Visit Provider Physician Assistant
DX: D36.11 Benign neoplasm of peripheral nerves and autonomic nervous system of face, head, and neck (principal); H91.92 Unspecified hearing loss, left ear; M81.0 Age-related osteoporosis without current pathological fracture; Z80.8 Family history of malignant neoplasm of other organs or systems; Z86.018 Personal history of other benign neoplasm; R29.90 Unspecified symptoms and signs involving the nervous system; G89.29 Other chronic pain; R51.9 Headache, unspecified
CPT/HCPCS: 70553; 77080

== ENCOUNTER → 2023-06-11 11:53 | Outpatient (CLI) | payer MEDICARE, SELFPAY ==
--- NOTE | 2023-06-11 11:55 | DI.MG.S_ITS ---
BILATERAL DIGITAL DIAGNOSTIC MAMMOGRAM 3D/2D POST LUMPECTOMY: 06/11/2023 CLINICAL: Intermittent pain in left breast. Comparison is made to exams dated: 02/23/2022 mammogram, 11/30/2020 mammogram, 06/09/2019 mammogram, and 04/07/2018 mammogram - [facility]. There are scattered areas of fibroglandular density in both breasts (category b / 25%-50% glandular tissue). No significant masses, calcifications, or other findings are seen in either breast. Stable left breast post-operative finding. Benign left vascular calcifications and benign bilateral scattered calcifications. IMPRESSION: BENIGN There is no mammographic evidence of malignancy. No mass demonstrated. Stable left breast post-operative finding. Diffuse left lateral breast pain. A 1 year screening mammogram is recommended. Exam findings were conveyed to the patient. Patient is advised to monitor for significant change. Clinical follow-up as needed. This exam was interpreted at Station ID: [id number]. NOTE: For mammograms, a report in lay terms will be sent to the patient. Approximately 15% of breast malignancies will not be visualized mammographically. In the management of a palpable breast mass, a negative mammogram must not discourage biopsy of a clinically suspicious lesion. Electronically Signed By: Carlos Velasquez M.D. slc/:06/11/2023 12:35:13 copy to: JANETH CHAVEZ letter sent: Clinical Evaluation ACR BI-RADS Category 2: Benign Finding(s) 3342F
== END ==
PROVIDERS: PCP Family Medicine; Referring Provider Family Medicine; Visit Provider Family Medicine
DX: Z12.39 Encounter for other screening for malignant neoplasm of breast (principal); N64.4 Mastodynia
CPT/HCPCS: 77066; G0279

== ENCOUNTER → 2024-06-16 14:29 | Outpatient (CLI) | payer MEDICARE, SELFPAY ==
[2024-06-16 15:15] LABS: Add Manual Diff / Slide Review NO; Basophils Absolute Auto 100 /uL (0-100); Basophils Percent Auto 0.9 % (0-2); Eosinophils Absolute Auto 100 /uL (0-450); Eosinophils Percent Auto 1.6 % (2-4); Hematocrit 42.6 % (36-46); Hemoglobin 14.2 g/dL (12.0-16.0); Lymphocytes Absolute Auto 1200 /uL (1100-4500); Mean Corpuscular HGB Conc 33.2 % (30-36); Mean Corpuscular Hemoglobin 28.5 PG (26-34); Mean Corpuscular Volume 85.8 fL (80-100); Monocytes Absolute Auto 600 /uL (0-900); Monocytes Percent Auto 9.4 % (3-14); Neutrophils Absolute Auto 4200 /uL (1500-7000); Neutrophils Percent Auto 68.1 % (50-75); Platelet Count 246 X10^3/uL (150-400); Red Blood Cell Count 4.96 X10^6/uL (4.0-5.2); Red Cell Distribution Width 14.3 % (11.6-14.8); White Blood Cell Count 6.1 X10^3/uL (4.5-11.0)
[2024-06-16 15:20] LABS: Hemoglobin A1C% w Est Avg Glu 5.3 % (4.0-6.0)
[2024-06-16 15:30] LABS: Alanine Aminotransferase 18 IU/L (<35); Albumin 4.1 g/dL (3.5-5.0); Albumin Globulin Ratio 1.1 (1.0-2.8); Alkaline Phosphatase 77 U/L (38-126); Aspartate Aminotransferase 31 IU/L (14-36); BUN Creatinine Ratio 19.6 (6-22); Bilirubin Total 0.5 mg/dL (0.2-1.3); Blood Urea Nitrogen 19 mg/dL (7-17); Calcium 10.6 mg/dL (8.4-10.2); Carbon Dioxide 33 mmol/L (22-32); Chloride 101 mmol/L (98-107); Estimated Glomerular Filt Rate > 60 mL/min (>60); Globulin 3.6 g/dL (1.7-4.1); Glucose 94 mg/dL (80-110); HEMOLYSIS < 15 (0-50); Potassium 4.6 mmol/L (3.4-5.1); Sodium 139 mmol/L (137-145); Total Protein 7.7 g/dL (6.3-8.2)
[2024-06-16 15:32] LABS: Creatinine Urine Random 100.55 mg/dL
[2024-06-16 15:38] LABS: Microalbumin Urine Random 1.1 mg/dL (0-1.6)
[2024-06-16 15:46] LABS: Vitamin D 25 Hydroxy (D3) 47.9 ng/mL (30.0-100.0)
[2024-06-16 16:00] LABS: TSH w/ Reflex to FT4 3.75 uIU/mL (0.47-4.68)
== END ==
PROVIDERS: PCP Family Medicine; Referring Provider Physician Assistant; Visit Provider Physician Assistant
DX: I10 Essential (primary) hypertension (principal); Z83.3 Family history of diabetes mellitus; E03.9 Hypothyroidism, unspecified; M81.0 Age-related osteoporosis without current pathological fracture; E78.2 Mixed hyperlipidemia
CPT/HCPCS: 36415; 80053; 82043; 82306; 82570; 83036; 84443; 85025

== ENCOUNTER → 2024-06-18 15:33 | Outpatient (CLI) | payer MEDICARE, SELFPAY ==
--- NOTE | 2024-06-18 15:34 | DI.RAD.S_ITS ---
PROCEDURE: XR CHEST 2V INDICATIONS: hypertension, crackles on exam TECHNIQUE: 2 views of the chest were acquired. COMPARISON: None. FINDINGS: Surgical changes and devices: Surgical clips are seen in left axilla. Lungs and pleura: Lungs are clear. No pleural effusions or pneumothorax. Mediastinum: Mediastinal contours are normal. Heart size is normal. Bones and chest wall: No suspicious bony abnormalities. Soft tissues appear unremarkable. IMPRESSION: No acute cardiopulmonary pathology. Dictated by: Nicola Bryant M.D. on 06/18/2024 at 17:06 Approved by: Nicola Bryant M.D. on 06/18/2024 at 17:06
== END ==
PROVIDERS: PCP Family Medicine; Referring Provider Physician Assistant; Visit Provider Physician Assistant
DX: I10 Essential (primary) hypertension (principal); R09.89 Other specified symptoms and signs involving the circulatory and respiratory systems
CPT/HCPCS: 71046

== ENCOUNTER → 2024-09-30 13:02 | Outpatient (CLI) | payer MEDICARE, SELFPAY ==
--- NOTE | 2024-09-30 13:03 | DI.MG.S_ITS ---
BILATERAL DIGITAL SCREENING MAMMOGRAM 3D/2D WITH CAD: 09/30/2024 CLINICAL: Routine screening. Personal history of left breast cancer. Comparison is made to exams dated: 06/11/2023 mammogram, 02/23/2022 mammogram, and 11/30/2020 mammogram - [facility]. There are scattered areas of fibroglandular density (category b / 25%-50% glandular tissue). Current study was also evaluated with a Computer Aided Detection (CAD) system. There are benign calcifications in both breasts. There also are benign post operative findings in the left breast. No significant masses, calcifications, or other findings are seen in either breast. There has been no significant interval change. IMPRESSION: BENIGN There is no mammographic evidence of malignancy. A 1 year screening mammogram is recommended. This exam was interpreted at Station ID: [id number]. NOTE: For mammograms, a report in lay terms will be sent to the patient. Approximately 15% of breast malignancies will not be visualized mammographically. In the management of a palpable breast mass, a negative mammogram must not discourage biopsy of a clinically suspicious lesion. Electronically Signed By: Robert kapoor/david:10/01/2024 07:56:36 copy to: JANETH CHAVEZ letter sent: Normal Exam ACR BI-RADS Category 2: Benign
== END ==
PROVIDERS: Family Provider Family Medicine; PCP Family Medicine; Referring Provider Family Medicine; Visit Provider Family Medicine
DX: Z12.31 Encounter for screening mammogram for malignant neoplasm of breast (principal); Z85.3 Personal history of malignant neoplasm of breast
CPT/HCPCS: 77063; 77067

== ENCOUNTER → 2024-10-13 12:52 | Outpatient (CLI) | payer MEDICARE, SELFPAY ==
--- NOTE | 2024-10-13 12:53 | DI.MRI.S_ITS ---
PROCEDURE: MR STROKE Pre- and post-contrast brain MRI, non-contrast brain MR angiogram, pre- and postcontrast neck MR angiogram INDICATIONS: Weakness L upper extremity; L side facial droop TECHNIQUE: Brain: Noncontrast axial T1 spin echo, axial T2 fast spin echo, sagittal and axial FLAIR, coronal T2 fast spin echo, axial gradient echo, axial diffusion and ADC through the brain. After the administration of contrast, axial 3D VIBE of the cranial vasculature and brain. Brain MRA: Non-contrast 3-D time of flight MR angiogram, with multiple zuzejgr-zumxluycd-wkmawaqbal (MIP) reformats performed. Neck MRA: Axial and sagittal TruFISP through the neck. Coronal dynamic MR angiogram during administration of contrast in the arterial and venous phases, with 3-dimenstional syfdpsc-psgberyjf-luhwiupniq (MIP) reformats constructed from subtraction images. COMPARISON: None. FINDINGS: Image quality: Excellent. BRAIN: CSF spaces: Ventricles are normal in size and shape. Basal cisterns are patent. No extra-axial fluid collections. Brain: No intracranial bleeds or mass effects. There is age-related global volume loss and chronic microvascular ischemic changes. Ward-white matter interface is normal. Diffusion weighted images show no acute infarct. Brainstem appears normal. Normal intravascular flow voids are present. No abnormal intracranial enhancement. 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 Skull and face: Calvarial marrow signal is normal. Orbits appear normal. Sinuses: Sinuses and mastoids are clear. BRAIN MR ANGIOGRAM: Anterior circulation: Intracranial internal carotid arteries are normal in size and enhancement. The flow within the paired anterior cerebral arteries is normal and symmetric. The flow within the middle cerebral arteries is normal and symmetric. The anterior communicating artery is seen. 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 Posterior circulation: The visualized portions of the vertebral arteries demonstrate normal caliber, and join to form a normal appearing basilar artery. The flow within the posterior cerebral arteries is normal and symmetric. No stenoses, occlusions, or aneurysms. NECK MR ANGIOGRAM: Carotids: Aberrant right subclavian artery. The origins of the common carotid arteries appear patent. The calibers and courses of both common carotid arteries are normal. The bifurcation regions appear normal bilaterally. The internal carotid arteries demonstrate normal course and caliber. Posterior circulation: The origins of the vertebral arteries appear patent. More superior portions of both vertebral arteries demonstrate normal course and caliber, and join to form a normal appearing basilar artery. Miscellaneous: Subclavian arteries appear patent. Pre-contrast images through the neck show no soft tissue abnormalities. IMPRESSION: BRAIN MRI: No acute or subacute infarct. No acute intracranial abnormalities or abnormal intracranial enhancement. Age-related global volume loss and chronic microvascular ischemic changes. BRAIN MR ANGIOGRAM: No significant stenosis or large vessel occlusion. 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 NECK MR ANGIOGRAM: No significant arterial abnormalities. Dictated by: Blaze Mansfield M.D. on 10/13/2024 at 16:38 Approved by: Blaze Mansfield M.D. on 10/13/2024 at 16:48
== END ==
PROVIDERS: Family Provider Family Medicine; PCP Family Medicine; Referring Provider Physician Assistant; Visit Provider Physician Assistant
DX: I63.9 Cerebral infarction, unspecified (principal); I10 Essential (primary) hypertension
CPT/HCPCS: 70544; 70549; 70553; A9579

== ENCOUNTER → 2024-10-23 13:30 | Outpatient (CLI) | payer MEDICARE, SELFPAY ==
--- NOTE | 2024-10-23 13:30 | DI.ECHO.S_ITS ---
[facility] : : [address] : : [place] : : [id number] : : Phone: [phone] Echocardiogram Report + + :Name: MARIANA CAMPBELL Study Date: 10/23/2024 Height: 59 in : :Hospital ReadingLocation: Weight: 98 lb : : Gender: Female BSA: 1.4 m2 : :: 1945 Age: 78 yrs BP: 187/105 mmHg: :Reason For Study: MURMUR, CEREBRAL INFARCTION : :Ordering Physician: KAROLINE, : :BUNNY Garcia Performed By: Lance Vee : :Referring: BUNNY RAMEY : + + Interpretation Summary The patient was in normal sinus rhythm during the exam. The left ventricular cavity is small. The ejection fraction is estimated to be 65-70%. No obvious LV thrombus. No significant LV outflow tract obstruction The right ventricle is normal in size and function. There appears to be heavy calcification of noncoronary cusp of aortic valve however cannot rule out bicuspid aortic valve. There is a decreased excursion of that cusp. Peak aortic velocity 2.84m/s, mean gradient 17.2 mmHg and severity ratio 0.32. Calculated aortic valve area is low because of small LV outflow tract diameter in calculation. Overall aortic stenosis in mild to moderate range. Trivial aortic regurgitation. There is mild tricuspid regurgitation. The right ventricular systolic pressure is estimated to be at least 36 mmHg based on an estimated right atrial pressure of 3 mm Hg. BP: 187/105 mmHg Procedure: A two-dimensional transthoracic echocardiogram with color flow and Doppler was performed. The study quality was technically good. There is no prior echocardiogram noted for this patient. The patient was in normal sinus rhythm during the exam. Left Ventricle: Left ventricular wall thickness is mildly increased. Proximal septal thickening is noted. The left ventricular cavity is small. There is no thrombus. A false chord is noted (normal variant). The ejection fraction is estimated to be 65-70%. There are no focal wall motion abnormalities. MV E/A: 0.78 Med Peak E' David: 5.2 cm/sec E/E' med: 19.6. Right Ventricle: The right ventricle is normal in size and function. Atria: The left atrial size is normal. Right atrial size is normal. There is no Doppler evidence for an interatrial shunt. The thickening of interatrial septum suggests lipomatous hypertrophy. Mitral Valve: There is moderate mitral annular calcification. The mitral valve leaflets appear mildly thickened, but open well. The mitral valve leaflets are mildly calcified. The mitral valve chordae are thickened and/or calcified. No significant mitral valve stenosis. There is mild mitral regurgitation. Aortic Valve: There appears to be heavy calcification of noncoronary cusp of aortic valve however cannot rule out bicuspid aortic valve. There is a decreased excursion of that cusp. Peak aortic velocity 2.84m/s, mean gradient 17.2 mmHg and severity ratio 0.32. Calculated aortic valve area is low because of small LV outflow tract diameter in calculation. Overall aortic stenosis in mild to moderate range. Trivial aortic regurgitation. The aortic valve mean gradient is 17.2 mmHg. There is trace aortic regurgitation. Tricuspid Valve: The tricuspid valve leaflets are thin and pliable. There is mild tricuspid regurgitation. The right ventricular systolic pressure is estimated to be at least 36 mmHg based on an estimated right atrial pressure of 3 mm Hg. Pulmonic Valve: The pulmonic valve is not well seen, but is grossly normal. There is no pulmonic valvular regurgitation. Great Vessels: The aortic root is normal size. The dimensions of the ascending aorta are normal. The pulmonary artery is normal size. The IVC is of normal diameter and collapses greater than 50% with a sniff. This suggests a low right atrial pressure of 3 mm Hg. Pericardium/ Pleura There is no pericardial effusion. There is no pleural effusion. MMode/2D Measurements & Calculations LVIDd: 3.6 cm LVOT diam: 1.7 cm LVIDs: 1.9 cm Ao root diam: 2.7 cm FS: 47.1 % asc Aorta Diam: 3.0 cm EPSS: 0.58 cm IVSd: 1.2 cm LVPWd: 0.88 cm LV sanchez. diameter/BSA (cm/m^2): 2.6 LV sys. diameter/BSA (cm/m^2): 1.4 LA A2 area: 13.8 cm2 RA long axis: 3.6 cm LA A4 area: 9.4 cm2 RA area: 8.7 cm2 LA length (vol): 3.8 cm RA vol: 17.8 ml LA vol: 28.8 ml RA : 13.1 ml/m2 LA vol index: 21.1 ml/m2 IVC diam: 1.0 cm RVD1 (basal): 2.7 cm RVD2 (mid): 2.2 cm TAPSE: 2.1 cm Doppler Measurements & Calculations Ao V2 max: 284.6 cm/sec LVOT Max David: 81.3 cm/sec Ao V2 mean: 196.3 cm/sec LV V1 max P.6 mmHg Ao max P.4 mmHg LV V1 VTI: 21.5 cm Ao mean P.2 mmHg LUCIA(I,D): 0.69 cm2 Ao V2 VTI: 68.0 cm LUCIA(V,D): 0.63 cm2 sev ratio: 0.32 LUCIA indexed to BSA (cm^2/m^2): 0.51 MV E max david: 101.6 cm/sec TR max david: 286.2 cm/sec MV A max david: 131.1 cm/sec TR max P.8 mmHg MV E/A: 0.78 PA V2 max: 72.3 cm/sec Med Peak E' David: 5.2 cm/sec PA V2 mean: 50.0 cm/sec E/E' med: 19.6 PA mean P.1 mmHg Lat Peak E' David: 4.6 cm/sec PA pr(Accel): 36.2 mmHg E/E' lat: 22.3 E/e' average: 21.0 MV dec time: 0.23 sec SV(LVOT): 47.2 ml Reading Physician:09:21 AM
== END ==
PROVIDERS: Family Provider Family Medicine; PCP Family Medicine; Referring Provider Physician Assistant; Visit Provider Physician Assistant
DX: I63.9 Cerebral infarction, unspecified (principal); I08.3 Combined rheumatic disorders of mitral, aortic and tricuspid valves
CPT/HCPCS: 93306

== ENCOUNTER → 2024-11-10 09:32 | Outpatient (CLI) | payer MEDICARE, SELFPAY ==
--- NOTE | 2024-11-10 12:36 | ST.SWALLOW ---
Visit Care Team Role Provider Type Lance Trinidad MD Family Provider Physician Primary Care Provider Specialty: Family Practice Address: [address] [place] [address], [address], [place], [address] Email: [email or web address] Franchesca Guy PA-C Attending Provider Advanced Field Secretary Referring Provider Specialty: Medical Address: [address] [place] [address], [place] [address], [place], [address] Email: [email or web address] ST Modified Barium Swallow Study ICE CREAM DIPPER Modified Barium Swallow Study Start: 11/10/24 10:52 Freq: Status: Active Protocol: Document 11/10/24 10:53 LNK (Rec: 11/10/24 12:36 LNK [id number]) Modified Barium Swallow Study Total Time Visit Start Time 10:00 Visit Stop Time 10:30 Total Visit Minutes [address] Trinidad Reason for Referral dysphgia Setting Setting Outpatient Care Patient Information Identification Type Name,Date of Patient History Pt was seen for a Modified Barium Swallow Study secondary to c/o progressive swallow difficulty. Pt has been seen for speech and swallow therapy at outpatient clinic. ST had requested that the pt get MBSS to determine aspiration risk and to guide POC. Pt reported that around March or April 2024, her daughter- in-law noticed pt's speech was becoming slurred. Pt also noted difficulty with chewing foods, needing to chew much longer before swallowing. Additionally, she has been unable to swallow pills, switching to gummy versions. She has been taking a prescribed medication that she noted is very difficult for her to swallow. Pt reported that since last fall, she has noticed that her speech and her ability to swallow have progressively worsened. She stated that she has been recently drooling more. Pt stated her speech gets weaker as the day progresses with family telling her they cannot hear/ understand what she is saying. She was diagnosed as having a CVA; however a recent MRI (07/27) reported: No acute or subacute infarct. No acute intracranial abnormalities or abnormal intracranial enhancement. Age-related global volume loss and chronic microvascular ischemic changes. Additionally the MRI reort noted No significant stenosis or large vessel occlusion. 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 ( see MRI report). Pt expressed concern that her s/sx seem to be going downhill quickly. She has scheduled an appointment with Neurology on 01/07/2025. Pt indicated she was concerned about waiting 2 months to see the neurologist. Subjective Observations Pt was seated in the fluoroscopy chair with directions and procedures described for her. She indicated she understood and agreed to proceed. Patient Positioning Position View Lateral Imaging Lateral View Textures Administered Trials Presented Thin Liquid via Spoon (IDDSI 0 ),Thin Liquid via Cup (IDDSI 0 ),Extremely Thick Liquid via Spoon (IDDSI 4),Regular (IDDSI 7) Barium Tablet Yes The IDDSI Framework Protocol: IDDSI.1 Oral Impairment Source: The Modified Barium Swallow Impairment Profile (MBSImP??) Lip Closure Escape from interlab.space/lat .junct.;no ext. beyond vermilion border Tongue Control During Bolus Hold Escape to lateral buccal cavity/floor of mouth (FOM) Bolus Preparation/Mastication Disorganized chewing/mashing with solid pieces of bolus unchewed Bolus Transport/Lingual Motion Repetitive/disorganized tongue motion Oral Residue Residue collection on oral structures Location Palate,Lateral sulci Initiation of Pharyngeal Swallow Bolus head at posterior laryngeal surface of epiglottis Additional Oral Impairment Observations *Dentition was natural in good hygiene *Facial: mild asymmetric facial movements (pucker -> smile) *Velar movement adequate for ah' Hypernasality noted during speaking (reduced speed of movement and/or strength) *Lingual fasciculation observed on tongue base and both sides of tongue on protrusion *Difficulty with lateralization of tongue rapidly (reduced speed of movement) *Difficulty with up/down tongue tip elevation/ depression *Tongue rocking in effort to to initiate swallow initiation *Diadochokinesis was slow and dysarthric *Mastication was observed to be disorganized with minimal rotary pattern, tongue-mashing of bolus pressed against roof of mouth in effort to move it toward pharynx. No lingual AP movement of bolus observed. *Attempts to move barium tablet (full and one half of tablet) were unsuccessful with pt spitting both tablets out Pharyngeal Impairment Source: The Modified Barium Swallow Impairment Profile (MBSImP??) Soft Palate Elevation No bolus between soft palate & pharyngeal wall Laryngeal Elevation Part.sup.move.thyroid cart/ part.approx.arytenoids to epiglot.petiole Anterior Hyoid Excursion No anterior movement Epiglottic Movement Partial inversion Laryngeal Vestibular Closure Incomplete; narrow column air/ contrast in laryngeal vestibule Pharyngeal Stripping Wave Present - diminished Pharyngoesophageal Segment Opening Complete distention & complete duration; no obstruction of flow Tongue Base Retraction Narrow column of contrast/air betwn tongue base & post. pharyngeal wall Pharyngeal Residue Majority of contrast within/on pharyngeal structures Location Valleculae Additional Pharyngeal Impairment *Reduced base of tongue retraction Observations strength *Reduced hyolaryngeal elevation and movement *Epiglottic inversion was inconsistent between horizontal position to inverted *Seal of the laryngeal vestibule was weak with penetration observed x5 (PAS 5 : penetrates larynx. contacts folds, visible residue) and aspiration x3 (PAS 6: below folds, no visible tracheal residue). Pt cued to cough, which was effective in clearing residue. A/P View The IDDSI Framework Protocol: IDDSI.1 A/P View Observations Additional A-P Observations A-P was not attempted Clinical Impressions Dysphagia Type Oral,Pharyngeal Findings Pt presented with moderate to severe oropharyngeal dysphagia (see above oral and pharyngeal summaries for details). Pt's s/sx are suggestive of a neuromotor etiology such as MS or ALS with pt's reported progressive decline. Pt is scheduled to see neurologist on 01/07/25. Recommend pt see neurologist sooner given current s/sx. Patient Appropriate for Therapy Yes Recommendations Diet Liquids Order Thin (IDDSI 0) Diet Order Easy to Chew (IDDSI 7) Medication Recommendation As Tolerated,Whole in Carrier, Crushed in Carrier Aspiration Precautions Recommended Precautions Upright at 90 Degrees,Small Bites/Sips,Double Swallow Treatment Plan Therapy Recommendations Outpatient Speech Therapy Additional Recommended Referrals ST: Safe swallow strategy education to reduce aspiration risk Therapy Strategy Recommendations Sitting Upright (90 deg)
== END ==
PROVIDERS: Family Provider Family Medicine; PCP Family Medicine; Referring Provider Physician Assistant; Visit Provider Physician Assistant
DX: R13.10 Dysphagia, unspecified (principal); R47.9 Unspecified speech disturbances
CPT/HCPCS: 74230; 92611

== ENCOUNTER → 2024-12-01 11:31 | Outpatient (CLI) | payer MEDICARE, SELFPAY ==
[2025-01-01 09:12] LABS: MuSK Antibodies <1.0 U/mL (.)
== END ==
PROVIDERS: Family Provider Family Medicine; PCP Family Medicine; Referring Provider Family Medicine; Visit Provider Family Medicine
DX: H49.9 Unspecified paralytic strabismus (principal); R29.810 Facial weakness; I63.9 Cerebral infarction, unspecified
CPT/HCPCS: 36415; 83519; 86255

== ENCOUNTER 2025-02-19 16:15 | Outpatient (RCR) | payer MEDICARE, SELFPAY ==
--- NOTE | 2024-09-25 10:43 | ST-OP ANOTE ---
Addendum entered and electronically signed by Dwayne Parker 09/25/24 12:08: Message sent to clinical workgroup for PCP Lance Trinidad with same request. Original Note: Physical, Occupational & Speech Therapy At [facility] Speech Therapy Note Pt referred with speech and swallowing concerns; however, referring dx is R47.9 Speaking Difficulty does not cover dysphagia. DIRECTOR OF CONSULTING SERVICES called referring provider, Franchesca Guy, and requested new referral with both dx codes. Clinical team to send updates referral with additional code. Additionally, sent message directly to referring provider with same request.
--- NOTE | 2024-09-25 15:45 | ST.OPIE ---
Visit Care Team Role Provider Type Lance Trinidad MD Family Provider Physician Primary Care Provider Specialty: Family Practice Address: [address] [place] [address], [address], [place], [address] Email: [email or web address] Franchesca Guy PA-C Attending Provider Advanced Detective [employer] Section Referring Provider Specialty: Medical Address: [address] [place] [address], [place] [address], [place], [address] Email: [email or web address] Speech-Language Pathology Initial Evaluation ELECTRICAL SYSTEMS ENGINEER Motor Speech Evaluation Start: 09/25/24 13:46 Freq: Status: Active Protocol: Document 09/25/24 13:46 SS (Rec: 09/25/24 14:25 SS [id number]) Motor Speech Evaluation Session Time Visit Start Time 11:20 Visit Stop Time 12:00 Total Visit Minutes 40 Visit Information Visit Number 1 Plan of Care Dates 09/25/24-12/24/24 Insurance Information Aetna Medicare Setting Setting Outpatient Care Next Note Type Next Note Type Treatment Note Patient History Source: [place] [employer] ([employer]). Patient History Vivi Brooks is a 78-year- old female, referred for a speech/language/voice evaluation by Franchesca Guy MD due to concerns regarding her voice and speech due to an unknown etiology. Patient lives with her and is retired. Patient reports she began noticing changes to her speech and swallowing, dizziness, sialorrhea, and difficulty with balance around April or May of 2024. Brain MRI and additional tests have been ordered by her PCP and are in process of being completed given suspected CVA. Patient reports her symptoms have been worsening gradually since onset six months ago. 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 Residual left facial weakness and mild droop , though patient reported this has not affected her speech until now. She also reports mastication is more effortful and she gets a sticking sensation with pills. She reports swallowing seems more effortful and she has to be careful so she does not bite the inside of her mouth when chewing. ELECTRICAL SYSTEMS ENGINEER requested dysphagia referral from PCP, Lance Trinidad, in order to assess swallowing concerns. Patient endorsed changes in speech/voice. She noted that her speech sounds slower and more impercise and she runs out of air, causing her to compensate by speaking louder and in shorter phrases. Patient noted that her spouse, who is hard of hearing, other familiy members, and customers at her [employer] ask her to repeat herself often. Conversations on the phone or via videocall have been challenging and she has began to resort to text messages. She noted that her speech gets worse as the day progresses and she becomes more tired. Referral Referring Physician ALONDRA Atwood Reason for Referral Speech and swallowing concerns Mental Status Mental Status Alert,Responsive,Cooperative Subjective Observations Subjective Patient arrived to the session on time. She was alert and oriented and had no difficulty answering case history questions. She was engaged with all assessment activities . Oral Motor Lips Function Mild Impairment Observation at rest Left weakness and droop Pucker Mild deviation to the right Retraction Mild deviation to the right Alternating pucker/retraction Mildly reduced ROM and coordination Involuntary Movement None Tongue Function Mild Impairment Observations at rest Symmetric Protrusion Mildly slowed Retraction Mildly slowed Lateralization Mildly reduced ROM and coordination Involuntary Movement Mild fasicuation with protrusion Jaw Function WNL Soft Palate Function Mild Impairment Observations at rest Mild deviation to right Symmetry WNL Elevation Mild deviation to right Sustained Elevation WNL Alternating elevation/relaxation Slowed Involuntary Movement None Respiration/Phonation Tools Observations Audible inspiration, short utterances indicative of reduced breath support Phonation Quality WFL Function WFL Loudness Excessive Loudness,Variable Loudness Diadochokinetic Rates P^ Duration per 3 sec. 8.4 Quality WFL T^ Duration per 3 sec. 7.2 Quality Mild Impairment K^ Duration per 3 sec. 5.4 Quality Moderate Impairment P^T^K^ Duration per 3 sec. 3 Quality Moderate Impairment Speech Intelligibility Standardized Tests Assessment Name(s) [place] Dysarthria Assessement Tool (N-YANY) Phoneme Severity Mildly Impaired Word Severity Mildly Impaired Sentence Severity Mildly Impaired Conversation Severity Mildly Impaired Awareness/Strategy Use Findings Details Motor Speech Function Mild-Moderate Impairment Assessment Details Assessment A motor speech and voice examination was administered to assess components of the patient?s motor speech system including respiration, phonation, articulation, resonance, and prosody. In addition, an oral mechanism exam was completed, and five salient features of neuromuscular function were also evaluated which include muscle strength, speed of movement, range of motion, accuracy of movement, and muscle tone. Respiration was assessed by observing the patient?s breathing at rest. In regards to speech, breath support was mildly reduced for normal speech production. Loudness was variable and ranged from too loud to too soft during conversation and speech tasks Pitch was mildly decreased range during conversation. Vocal quality was Mildly hoarse and rough during conversation and speech tasks Maximum Phonation Time (MPT) averaged at 21 seconds = average. Voice quality was mildly horse and rough and loudness was significantly reduced. S/Z Ratio: 5.65/18.05 = 0.3. Both /s/ and /z/ reduced is indicative of respiratory impairment. Alternating motion rates were slow and irregular. Patient?s intelligibility judged to be reduced, at approximately 85% and characterized by reduced precision and slowed rate. Intelligibilty would be lower later in the day, in noisy and loud environements, and when patient is not consistently focusing on using compensatory strategies. Patient is often aware of errors and attempts to self-correct. While her intelligibility was not significantly reduced, she reports it takes her great effort to keep her voice from becoming more imprecise. Patient?s speech presents with hypernasality which may be indicative of velopharyngeal dysfunction, particularly perceptible on vowel productions. Prosody judged to be mildly reduced in terms of stress and intonation in conversation and structured speech tasks. Patient with left weakness and reduced range of motion at baseline per her report. She emonstrated reduced labial and lingual strength during resistance tasks, indicated by inability to hold air when instructed to puff cheecks and lingual strength being reduced on the left side. At the conversation level, speed of movement judged to be mildly reduced. In regards to speech production, accuracy is mildly reduced. Muscle tone and ROM of all speech related musculature appeared mildly reduced. Patient presents with dysarthria in the setting of an unknown etiology. Patient?s speech is characterized by slow rate, decreased precision , hypernasality, audible inspiration or stridor, use of short phrases due to reduced respiratory support, and imprecise alternating motion rates (AMRs). Patient also demonstrates rapid deterioration of speech quality and performance, with notable recovery with rest. 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 Patient reports that other people have difficulty understanding her and this causes difficulty in communication. She also reports significant fatigue with speech, particularly later in the day or during longer conversations. Prognosis for improvement is good for stated goals pending medical diagnosis which will inform POC and patient cooperation and motivation. Prognosis Rehabilitation Potential Good Recommendations Treatment Recommended Yes Frequency Once a week Duration Three months Therapy Recommendations Recommendations are for skilled speech services in order to increase speech clarity by applying trained compensatory strategies to improve functional communication during activities of daily living and optimize quality of life. Short Term Goals 1. Patient will implement the compensatory strategy of over- articulation in order to improve speech intelligibility in semi-structured speech tasks with 80% accuracy given minimal verbal cues. 2. Patient will implement compensatory speech strategies for improved clarity of speech in 80% of opportunities following education and training. 3. Patient will utilize strategies targeting respiration and phonation coordination in order to improve speech intelligibility and increase respiratory strength in semi-structured speech tasks with 80% accuracy given minimal verbal cues. Alf Goals 1. Patient will produce spontaneous speech using trained compensatory strategies in order to improve communication effectiveness. 2. Patient will improve overall self-perception of speech from a baseline of on The Communicative Participation Item Bank (CPIB) following participation in skilled services. Referrals Suggested ENT,Neurology Patient/Family Education Education Patient Understanding
--- NOTE | 2024-09-25 15:47 | ST.OPIE ---
Visit Care Team Role Provider Type Lance Trinidad MD Family Provider Physician Primary Care Provider Specialty: Family Practice Address: [address] [place] [address], [address], [place], [address] Email: [email or web address] Franchesca Guy PA-C Attending Provider Advanced Polymer Tester Referring Provider Specialty: Medical Address: [address] [place] [address], [place] [address], [place], [address] Email: [email or web address] Speech-Language Pathology Initial Evaluation EVAPORATOR Motor Speech Evaluation Start: 09/25/24 13:46 Freq: Status: Active Protocol: Document 09/25/24 13:46 SS (Rec: 09/25/24 14:25 SS [id number]) Motor Speech Evaluation Session Time Visit Start Time 11:20 Visit Stop Time 12:00 Total Visit Minutes 40 Visit Information Visit Number 1 Plan of Care Dates 09/25/24-12/24/24 Insurance Information Aetna Medicare Setting Setting Outpatient Care Next Note Type Next Note Type Treatment Note Patient History Source: [place] [employer] ([employer]). Patient History Vivi Brooks is a 78-year- old female, referred for a speech/language/voice evaluation by Franchesca Guy MD due to concerns regarding her voice and speech due to an unknown etiology. Patient lives with her and is retired. Patient reports she began noticing changes to her speech and swallowing, dizziness, sialorrhea, and difficulty with balance around April or May of 2024. Brain MRI and additional tests have been ordered by her PCP and are in process of being completed given suspected CVA. Patient reports her symptoms have been worsening gradually since onset six months ago. 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 Residual left facial weakness and mild droop , though patient reported this has not affected her speech until now. She also reports mastication is more effortful and she gets a sticking sensation with pills. She reports swallowing seems more effortful and she has to be careful so she does not bite the inside of her mouth when chewing. EVAPORATOR requested dysphagia referral from PCP, Lance Trinidad, in order to assess swallowing concerns. Patient endorsed changes in speech/voice. She noted that her speech sounds slower and more imprecise and she runs out of air, causing her to compensate by speaking louder and in shorter phrases. Patient noted that her spouse, who is hard of hearing, other family members, and customers at her [employer] ask her to repeat herself often. Conversations on the phone or via videocall have been challenging and she has began to resort to text messages. She noted that her speech gets worse as the day progresses and she becomes more tired. Referral Referring Physician ALONDRA Atwood Reason for Referral Speech and swallowing concerns Mental Status Mental Status Alert,Responsive,Cooperative Subjective Observations Subjective Patient arrived to the session on time. She was alert and oriented and had no difficulty answering case history questions. She was engaged with all assessment activities . Oral Motor Lips Function Mild Impairment Observation at rest Left weakness and droop Pucker Mild deviation to the right Retraction Mild deviation to the right Alternating pucker/retraction Mildly reduced ROM and coordination Involuntary Movement None Tongue Function Mild Impairment Observations at rest Symmetric Protrusion Mildly slowed Retraction Mildly slowed Lateralization Mildly reduced ROM and coordination Involuntary Movement Mild fasciculation with protrusion Jaw Function WNL Soft Palate Function Mild Impairment Observations at rest Mild deviation to right Symmetry WNL Elevation Mild deviation to right Sustained Elevation WNL Alternating elevation/relaxation Slowed Involuntary Movement None Respiration/Phonation Tools Observations Audible inspiration, short utterances indicative of reduced breath support Phonation Quality WFL Function WFL Loudness Excessive Loudness,Variable Loudness Diadochokinetic Rates P^ Duration per 3 sec. 8.4 Quality WFL T^ Duration per 3 sec. 7.2 Quality Mild Impairment K^ Duration per 3 sec. 5.4 Quality Moderate Impairment P^T^K^ Duration per 3 sec. 3 Quality Moderate Impairment Speech Intelligibility Standardized Tests Assessment Name(s) [place] Dysarthria Assessment Tool (N-YANY) Phoneme Severity Mildly Impaired Word Severity Mildly Impaired Sentence Severity Mildly Impaired Conversation Severity Mildly Impaired Awareness/Strategy Use Findings Details Motor Speech Function Mild-Moderate Impairment Assessment Details Assessment A motor speech and voice examination was administered to assess components of the patient?s motor speech system including respiration, phonation, articulation, resonance, and prosody. In addition, an oral mechanism exam was completed, and five salient features of neuromuscular function were also evaluated which include muscle strength, speed of movement, range of motion, accuracy of movement, and muscle tone. Respiration was assessed by observing the patient?s breathing at rest. In regards to speech, breath support was mildly reduced for normal speech production. Loudness was variable and ranged from too loud to too soft during conversation and speech tasks Pitch was mildly decreased range during conversation. Vocal quality was Mildly hoarse and rough during conversation and speech tasks Maximum Phonation Time (MPT) averaged at 21 seconds = average. Voice quality was mildly horse and rough and loudness was significantly reduced. S/Z Ratio: 5.65/18.05 = 0.3. Both /s/ and /z/ reduced is indicative of respiratory impairment. Alternating motion rates were slow and irregular. Patient?s intelligibility judged to be reduced, at approximately 85% and characterized by reduced precision and slowed rate. Intelligibility would be lower later in the day, in noisy and loud environments, and when patient is not consistently focusing on using compensatory strategies. Patient is often aware of errors and attempts to self-correct. While her intelligibility was not significantly reduced, she reports it takes her great effort to keep her voice from becoming more imprecise. Patient?s speech presents with hypernasality which may be indicative of velopharyngeal dysfunction, particularly perceptible on vowel productions. Prosody judged to be mildly reduced in terms of stress and intonation in conversation and structured speech tasks. Patient with left weakness and reduced range of motion at baseline per her report. She demonstrated reduced labial and lingual strength during resistance tasks, indicated by inability to hold air when instructed to puff cheeks and lingual strength being reduced on the left side. At the conversation level, speed of movement judged to be mildly reduced. In regards to speech production, accuracy is mildly reduced. Muscle tone and ROM of all speech related musculature appeared mildly reduced. Patient presents with dysarthria in the setting of an unknown etiology. Patient?s speech is characterized by slow rate, decreased precision , hypernasality, audible inspiration or stridor, use of short phrases due to reduced respiratory support, and imprecise alternating motion rates (AMRs). Patient also demonstrates rapid deterioration of speech quality and performance, with notable recovery with rest. 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 Patient reports that other people have difficulty understanding her and this causes difficulty in communication. She also reports significant fatigue with speech, particularly later in the day or during longer conversations. Prognosis for improvement is good for stated goals pending medical diagnosis which will inform POC and patient cooperation and motivation. Prognosis Rehabilitation Potential Good Recommendations Treatment Recommended Yes Frequency Once a week Duration Three months Therapy Recommendations Recommendations are for skilled speech services in order to increase speech clarity by applying trained compensatory strategies to improve functional communication during activities of daily living and optimize quality of life. Short Term Goals 1. Patient will implement the compensatory strategy of over- articulation in order to improve speech intelligibility in semi-structured speech tasks with 80% accuracy given minimal verbal cues. 2. Patient will implement compensatory speech strategies for improved clarity of speech in 80% of opportunities following education and training. 3. Patient will utilize strategies targeting respiration and phonation coordination in order to improve speech intelligibility and increase respiratory strength in semi-structured speech tasks with 80% accuracy given minimal verbal cues. Longterm Goals 1. Patient will produce spontaneous speech using trained compensatory strategies in order to improve communication effectiveness. 2. Patient will improve overall self-perception of speech from a baseline of on The Communicative Participation Item Bank (CPIB) following participation in skilled services. Referrals Suggested ENT,Neurology Patient/Family Education Education Patient Understanding
--- NOTE | 2024-09-25 15:49 | ST.OPPOC ---
Physical, Occupational & Speech Therapy At [facility] Visit Care Team Role Provider Type Lance Trinidad MD Family Provider Physician Primary Care Provider Address: [address] [place] [address], [address], [place], [address] Franchesca Guy PA-C Attending Provider Advanced Immigration Associate Referring Provider Address: [address] [place] [address], [address], [place], [address] Speech Pathology Plan of Care Plan of Care Dates 09/25/24-12/24/24 Referring Provider ALONDRA Atwood Patient History Vivi Brooks is a 78-year-old female, referred for a speech/language/voice evaluation by Franchesca Guy MD due to concerns regarding her voice and speech due to an unknown etiology. Patient lives with her and is retired. Patient reports she began noticing changes to her speech and swallowing, dizziness, sialorrhea , and difficulty with balance around April or May of 2024. Brain MRI and additional tests have been ordered by her PCP and are in process of being completed given suspected CVA. Patient reports her symptoms have been worsening gradually since onset six months ago. 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 Residual left facial weakness and mild droop, though patient reported this has not affected her speech until now. She also reports mastication is more effortful and she gets a sticking sensation with pills. She reports swallowing seems more effortful and she has to be careful so she does not bite the inside of her mouth when chewing. 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 Patient endorsed changes in speech/voice. She noted that her speech sounds slower and more imprecise and she runs out of air, causing her to compensate by speaking louder and in shorter phrases. Patient noted that her spouse, who is hard of hearing, other family members, and customers at her [employer] ask her to repeat herself often. Conversations on the phone or via videocall have been challenging and she has began to resort to text messages. She noted that her speech gets worse as the day progresses and she becomes more tired. Short Term Goals 1. Patient will implement the compensatory strategy of over-articulation in order to improve speech intelligibility in semi- structured speech tasks with 80% accuracy given minimal verbal cues. 2. Patient will implement compensatory speech strategies for improved clarity of speech in 80% of opportunities following education and training. 3. Patient will utilize strategies targeting respiration and phonation coordination in order to improve speech intelligibility and increase respiratory strength in semi-structured speech tasks with 80% accuracy given minimal verbal cues. Retirement Goals 1. Patient will produce spontaneous speech using trained compensatory strategies in order to improve communication effectiveness. 2. Patient will improve overall self-perception of speech from a baseline of on The Communicative Participation Item Bank (CPIB) following participation in skilled services. Comment: Electronically Signed by: KIERAN Whiting 09/25/24 0941 If you are in agreement with this Plan of Care, please return a signed and dated copy. I have reviewed this Plan of Care and certify that the skilled therapy services above are required to meet the patient?s needs. Physician Signature Date Printed Name and Credentials Clinical Instructor Signature Printed Name and Credentials
--- NOTE | 2024-10-02 15:56 | ST.OPTN ---
Visit Care Team Role Provider Type Lance Trinidad MD Family Provider Physician Primary Care Provider Address: [address] [place] [address], [address], [place], [address] Franchesca Guy PA-C Attending Provider Advanced Commutator Tester Referring Provider Address: [address] [place] [address], [address], [place], [address] PAINTER AND DECORATOR Treatment Note PAINTER AND DECORATOR Treatment Note Start: 09/25/24 13:46 Freq: Status: Active Protocol: Document 10/02/24 15:36 SS (Rec: 10/02/24 15:56 SS [id number]) Speech Pathology Treatment Note Session Time Visit Start Time 11:30 Visit Stop Time 12:10 Total Visit Minutes 40 Visit Information Visit Number 2 Plan of Care Dates 09/25/24-12/24/24 Insurance Information [employer] medicare Setting Treatment Setting Outpatient Care Visit Type Note Type Treatment Note Next Note Type Next Note Type Treatment Note General Information Patient History Vivi Brooks is a 78-year- old female, referred for a speech/language/voice evaluation by Franchesca uGy MD due to concerns regarding her voice and speech due to an unknown etiology. Patient lives with her and is retired. Patient reports she began noticing changes to her speech and swallowing, dizziness, sialorrhea, and difficulty with balance around April or May of 2023. Brain MRI and additional tests have been ordered by her PCP and are in process of being completed given suspected CVA. Patient reports her symptoms have been worsening gradually since onset six months ago. 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 Residual left facial weakness and mild droop , though patient reported this has not affected her speech until now. She also reports mastication is more effortful and she gets a sticking sensation with pills. She reports swallowing seems more effortful and she has to be careful so she does not bite the inside of her mouth when chewing. PAINTER AND DECORATOR requested dysphagia referral from PCP, Lance Trinidad, in order to assess swallowing concerns. Patient endorsed changes in speech/voice. She noted that her speech sounds slower and more impercise and she runs out of air, causing her to compensate by speaking louder and in shorter phrases. Patient noted that her spouse, who is hard of hearing, other familiy members, and customers at her [employer] ask her to repeat herself often. Conversations on the phone or via videocall have been challenging and she has began to resort to text messages. She noted that her speech gets worse as the day progresses and she becomes more tired. Subjective Identification Type Name Observations/Patient Presentation Pt arrived to the session on time. She was engaged and motivated throughout all session activities. She reports she has a brain MRI scheduled next week to further assess etiology of current symptoms. Objective Short Term Goals 1. Patient will implement the compensatory strategy of over- articulation in order to improve speech intelligibility in semi-structured speech tasks with 80% accuracy given minimal verbal cues. 2. Patient will implement compensatory speech strategies for improved clarity of speech in 80% of opportunities following education and training. 3. Patient will utilize strategies targeting respiration and phonation coordination in order to improve speech intelligibility and increase respiratory strength in semi-structured speech tasks with 80% accuracy given minimal verbal cues. Group Home Goals 1. Patient will produce spontaneous speech using trained compensatory strategies in order to improve communication effectiveness. 2. Patient will improve overall self-perception of speech from a baseline of on The Communicative Participation Item Bank (CPIB) following participation in [facility]. Treatment Activities Diaphragamtic breathing and compensatory strategies for speech, including slow rate, over-articulation, and increased pausing during structured and conversational speech activities. Discussion of energy conservation during speech tasks throughout the day as speech worsens throughout the day. Provided daily HEP. Assessment Patient Response to Treatment Good Rehab Potential Good Impairments Identified Speech Assessment of Improvement Implemented diaphragmatic breathing exercise with cueing for pt to place hand on stomach for tactile feedback. Introduced graded inhalation exercise where pt inhales using short sniffs to reach a full breath, holds breath for two sec, and exhales slowly. Pt benefited from multiple explanations of exercise and PAINTER AND DECORATOR modeling, but was able to complete it accurately and expressed understanding of the goal and form. Recommended pt complete 10 reps of graded inhalation exercise daily to increase respiratory control and coordination with voice. Provided education re: compensatory strategies for speech. Pt already implements slow rate and over- articulation effectively. She would benefit from increased use of pausing between phrases /sentences to improve coordination of respiration and phonation as well as maintain consist use of speech strategies throughout the entire phrase/sentence. During w-up exercise (may-me- may-velma-moo), pt was able to maintain adequate volume and articulatory precision given initial cueing to use intent and take a deep breath. She was able to sustain ?ah? for an average of 5 sec with good volume and clear vocal quality . During counting exercise ( counted by 3?s to 12), she was able to maintain adequate volume and intelligibility given cueing to use intent and take deep breaths. . Advanced to functional speech tasks. During reading exercise , pt was instructed to read at the functional phrase/ sentences level, averaging at 2-3 words. She required mod cueing to take deep breaths, in order to main her volume and minimize imprecision. Pt completed fill-in the phrase activity (e.g., ?up and __?). She was able to utilize diaphragmatic breathing and speech strategies about 60% of the time, increasing to 80% given mod verbal cueing. Patient benefited from min-mod cueing throughout the session , specifically to take deep breaths and pause between phrases/sentences given reduced respiratory support and increased imprecision, particularly towards the end of sentences. She demonstrated improvement across all exercises with cueing. Pt verbalized understanding of HEP. Plan to continue advancing exercises and target conversational speech given pt progress and report. Reviewed with Patient Goals,Progress Being Made,Home Exercise Program Patient/Caregiver Understanding Excellent Plan Amount of Therapy Recommended 3 Months Frequency of Treatment Once a Week Length of Session 30 Minutes Therapeutic Contents Articulation Training,Client Education,Home Exercise Program,Intelligibility,Other Additional Areas of Treatment Coordination of respiration/ phonation Provided Patient/Caregiver Instruction Home Exercise Program, Questions/Concerns Therapy Recommendations Continue with Current Program Suggested Referral Neurology
--- NOTE | 2024-10-14 17:09 | ST.OPTN ---
Visit Care Team Role Provider Type Lance Trinidad MD Family Provider Physician Primary Care Provider Address: [address] [place] [address], [address], [place], [address] Franchesca Guy PA-C Attending Provider Advanced Manager Data Warehousing Referring Provider Address: [address] [place] [address], [address], [place], [address] SURGICAL FIRST ASSISTANT Treatment Note SURGICAL FIRST ASSISTANT Treatment Note Start: 09/25/24 13:46 Freq: Status: Active Protocol: Document 10/14/24 16:57 SS (Rec: 10/14/24 17:08 SS [id number]) Speech Pathology Treatment Note Session Time Visit Start Time 13:40 Visit Stop Time 14:15 Total Visit Minutes 35 Visit Information Visit Number 3 Plan of Care Dates 09/25/24-12/24/24 Insurance Information [employer] medicare Setting Treatment Setting Outpatient Care Visit Type Note Type Treatment Note Next Note Type Next Note Type Treatment Note General Information Patient History Vivi Brooks is a 78-year- old female, referred for a speech/language/voice evaluation by Franchesca Guy MD due to concerns regarding her voice and speech due to an unknown etiology. Patient lives with her and is retired. Patient reports she began noticing changes to her speech and swallowing, dizziness, sialorrhea, and difficulty with balance around April or May of 2023. Brain MRI and additional tests have been ordered by her PCP and are in process of being completed given suspected CVA. Patient reports her symptoms have been worsening gradually since onset six months ago. 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 Residual left facial weakness and mild droop , though patient reported this has not affected her speech until now. She also reports mastication is more effortful and she gets a sticking sensation with pills. She reports swallowing seems more effortful and she has to be careful so she does not bite the inside of her mouth when chewing. SURGICAL FIRST ASSISTANT requested dysphagia referral from PCP, Lance Trinidad, in order to assess swallowing concerns. Patient endorsed changes in speech/voice. She noted that her speech sounds slower and more imprecise and she runs out of air, causing her to compensate by speaking louder and in shorter phrases. Patient noted that her spouse, who is hard of hearing, other family members, and customers at her [employer] ask her to repeat herself often. Conversations on the phone or via videocall have been challenging and she has began to resort to text messages. She noted that her speech gets worse as the day progresses and she becomes more tired. Subjective Identification Type Name Observations/Patient Presentation Pt arrived to the session on time. She was engaged and motivated throughout all session activities. Objective Short Term Goals 1. Patient will implement the compensatory strategy of over- articulation in order to improve speech intelligibility in semi-structured speech tasks with 80% accuracy given minimal verbal cues. 2. Patient will implement compensatory speech strategies for improved clarity of speech in 80% of opportunities following education and training. 3. Patient will utilize strategies targeting respiration and phonation coordination in order to improve speech intelligibility and increase respiratory strength in semi-structured speech tasks with 80% accuracy given minimal verbal cues. Alf Goals 1. Patient will produce spontaneous speech using trained compensatory strategies in order to improve communication effectiveness. 2. Patient will improve overall self-perception of speech from a baseline of on The Communicative Participation Item Bank (CPIB) following participation in [facility] services. Treatment Activities Diaphragmatic breathing and compensatory strategies for speech, including slow rate, over-articulation, and increased pausing during structured and conversational speech activities. Discussion of brain MRI results and recommended ENT referral. Provided daily HEP. Assessment Patient Response to Treatment Good Rehab Potential Good Impairments Identified Speech Assessment of Improvement Implemented diaphragmatic breathing and over- articulation during structured speech activities and during conversation. During warm-up exercise (irh-ua-vou-moe-moo), pt was able to maintain adequate volume and articulatory precision given initial cueing to use intent and take a deep breath. She was able to sustain ?ah? for an average of 5-6 sec with good volume and clear vocal quality. She reported significant vocal fatigue after completing these exercises and required a break from vocal activities. After about 3-4 minutes, she was able to utilize diaphragmatic breathing and overt- articulation during unstructured conversation approximately 60% of the time, though again endorsed significant vocal fatigue. Pt was able to remember to take deep breaths and pause between phrases/sentences, but continued to have significant difficulty with maintaining adequate breath support throughout the session. Pt to follow up with her PCP re brain MRI results which showed a saccular aneurysm. She has gotten a call from diagnostic imaging re MBSS and will follow up on scheduling it. Pt reported that she had difficulty breathing when laying flat during the MRI which may be indicative of velopharyngeal dysfunction. Recommended pt discuss referral to ENT with PCP given symptoms of velopharyngeal dysfunction, hypernasal vocal quality, and strained- strangled voice with poor breath support which has been progressively worsening. Message sent to PCP?s workgroup as well. Pt verbalized understanding of recommendations and HEP. Plan to continue advancing exercises and target breath support and articulatory precision in conversational speech given pt progress and report. Reviewed with Patient Goals,Progress Being Made,Home Exercise Program Patient/Caregiver Understanding Excellent Plan Amount of Therapy Recommended 3 Months Frequency of Treatment Once a Week Length of Session 30 Minutes Therapeutic Contents Articulation Training,Client Education,Home Exercise Program,Intelligibility,Other Additional Areas of Treatment Coordination of respiration/ phonation Provided Patient/Caregiver Instruction Home Exercise Program, Questions/Concerns Therapy Recommendations Continue with Current Program Suggested Referral ENT,Neurology
--- NOTE | 2024-10-21 16:14 | ST.OPTN ---
Visit Care Team Role Provider Type Lance Trinidad MD Family Provider Physician Primary Care Provider Address: [address] [place] [address], [address], [place], [address] Franchesca Guy PA-C Attending Provider Advanced Polygraph Examiner Referring Provider Address: [address] [place] [address], [address], [place], [address] BIOLOGY INTERN Treatment Note BIOLOGY INTERN Treatment Note Start: 09/25/24 13:46 Freq: Status: Active Protocol: Document 10/21/24 16:05 SS (Rec: 10/21/24 16:14 SS [id number]) Speech Pathology Treatment Note Session Time Visit Start Time 13:35 Visit Stop Time 14:15 Total Visit Minutes 40 Visit Information Visit Number 4 Plan of Care Dates 09/25/24-12/24/24 Insurance Information [employer] medicare Setting Treatment Setting Outpatient Care Visit Type Note Type Treatment Note Next Note Type Next Note Type Treatment Note General Information Patient History Vivi Brooks is a 78-year- old female, referred for a speech/language/voice evaluation by Franchesca Guy MD due to concerns regarding her voice and speech due to an unknown etiology. Patient lives with her and is retired. Patient reports she began noticing changes to her speech and swallowing, dizziness, sialorrhea, and difficulty with balance around April or May of 2023. Brain MRI and additional tests have been ordered by her PCP and are in process of being completed given suspected CVA. Patient reports her symptoms have been worsening gradually since onset six months ago. 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 Residual left facial weakness and mild droop , though patient reported this has not affected her speech until now. She also reports mastication is more effortful and she gets a sticking sensation with pills. She reports swallowing seems more effortful and she has to be careful so she does not bite the inside of her mouth when chewing. BIOLOGY INTERN requested dysphagia referral from PCP, Lance Trinidad, in order to assess swallowing concerns. Patient endorsed changes in speech/voice. She noted that her speech sounds slower and more impercise and she runs out of air, causing her to compensate by speaking louder and in shorter phrases. Patient noted that her spouse, who is hard of hearing, other familiy members, and customers at her [employer] ask her to repeat herself often. Conversations on the phone or via videocall have been challenging and she has began to resort to text messages. She noted that her speech gets worse as the day progresses and she becomes more tired. Subjective Identification Type Name Observations/Patient Presentation Pt arrived to the session on time. She was engaged and motivated throughout all session activities. Objective Short Term Goals 1. Patient will implement the compensatory strategy of over- articulation in order to improve speech intelligibility in semi-structured speech tasks with 80% accuracy given minimal verbal cues. 2. Patient will implement compensatory speech strategies for improved clarity of speech in 80% of opportunities following education and training. 3. Patient will utilize strategies targeting respiration and phonation coordination in order to improve speech intelligibility and increase respiratory strength in semi-structured speech tasks with 80% accuracy given minimal verbal cues. [facility] Goals 1. Patient will produce spontaneous speech using trained compensatory strategies in order to improve communication effectiveness. 2. Patient will improve overall self-perception of speech from a baseline of on The Communicative Participation Item Bank (CPIB) following participation in [facility]. Treatment Activities Diaphragamtic breathing and compensatory strategies for speech, including slow rate, one word at a time, and increased pausing during structured and conversational speech activities. Discussion of ENT referral, MBSS scheduling, and neurology referral to further inform POC given unknown etiology of pt' s symptoms. Provided daily HEP . Assessment Patient Response to Treatment Good Rehab Potential Good Impairments Identified Speech Assessment of Improvement Pt reported her speech has gotten worse and speaking has become more effortful since last session. She is in process of scheduling MBSS and is waiting for ENT referral to be processed. She has an upcoming appt with her PCP. BIOLOGY INTERN recommended pt discuss potential neurology referral given presentation of speech/ voice symptoms, including velopharyngeal dysfunction, hypernasal vocal quality, and strained-strangled voice with poor breath support, which have been progressively worsening. Pt expressed she prefers to discuss this with her PCP over BIOLOGY INTERN sending message to PCP directly. Implemented diaphragmatic breathing and over- articulation during structured speech in which pt was tasked with comparing and contrasting two target concepts. Pt was able to utilize diaphragmatic breathing, short phrases/ sentences, and one word at a time approximately 70% of the time, increasing to approximately 90% given min verbal cueing and BIOLOGY INTERN model. During conversation, she was able to recall to use strategies about half of the time, but had difficulty implementing them without additional cueing. Pt endorsed vocal fatigue today. Discussed rationale for increasing breath support and using compensatory speech strategies rather than trying to increase her volume which may lead to vocal abuse and additional fatigue. Plan to continue targeting breath support and compensatory speech strategies in conversational speech given pt progress and report. Reviewed with Patient Goals,Progress Being Made,Home Exercise Program Patient/Caregiver Understanding Excellent Plan Amount of Therapy Recommended 3 Months Frequency of Treatment Once a Week Length of Session 30 Minutes Therapeutic Contents Articulation Training,Client Education,Home Exercise Program,Intelligibility,Other Additional Areas of Treatment Coordination of respiration/ phonation Provided Patient/Caregiver Instruction Home Exercise Program, Questions/Concerns Therapy Recommendations Continue with Current Program Suggested Referral ENT,Neurology
--- NOTE | 2024-11-24 13:44 | ST.OPTN ---
Visit Care Team Role Provider Type Lance Trinidad MD Family Provider Physician Primary Care Provider Address: [address] [place] [address], [address], [place], [address] Franchesca Guy PA-C Attending Provider Advanced Division Manager Referring Provider Address: [address] [place] [address], [address], [place], [address] CONVERSION WORKER Treatment Note CONVERSION WORKER Treatment Note Start: 09/25/24 13:46 Freq: Status: Active Protocol: Document 11/24/24 13:28 SS (Rec: 11/24/24 13:44 SS [id number]) Speech Pathology Treatment Note Session Time Visit Start Time 10:45 Visit Stop Time 11:20 Total Visit Minutes 35 Visit Information Visit Number 5 Plan of Care Dates 09/25/24-12/24/24 Insurance Information [employer] medicare Setting Treatment Setting Outpatient Care Visit Type Note Type Treatment Note Next Note Type Next Note Type Treatment Note General Information Patient History Vivi Brooks is a 78-year- old female, referred for a speech/language/voice evaluation by Franchesca Guy MD due to concerns regarding her voice and speech due to an unknown etiology. Patient lives with her and is retired. Patient reports she began noticing changes to her speech and swallowing, dizziness, sialorrhea, and difficulty with balance around April or May of 2023. Brain MRI and additional tests have been ordered by her PCP and are in process of being completed given suspected CVA. Patient reports her symptoms have been worsening gradually since onset six months ago. 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 Residual left facial weakness and mild droop , though patient reported this has not affected her speech until now. She also reports mastication is more effortful and she gets a sticking sensation with pills. She reports swallowing seems more effortful and she has to be careful so she does not bite the inside of her mouth when chewing. CONVERSION WORKER requested dysphagia referral from PCP, Lance Trinidad, in order to assess swallowing concerns. Patient endorsed changes in speech/voice. She noted that her speech sounds slower and more impercise and she runs out of air, causing her to compensate by speaking louder and in shorter phrases. Patient noted that her spouse, who is hard of hearing, other familiy members, and customers at her [employer] ask her to repeat herself often. Conversations on the phone or via videocall have been challenging and she has began to resort to text messages. She noted that her speech gets worse as the day progresses and she becomes more tired. Subjective Identification Type Name Observations/Patient Presentation Pt arrived to the session on time. She was engaged and motivated throughout all session activities. Objective Short Term Goals 1. Patient will implement the compensatory strategy of over- articulation in order to improve speech intelligibility in semi-structured speech tasks with 80% accuracy given minimal verbal cues. 2. Patient will implement compensatory speech strategies for improved clarity of speech in 80% of opportunities following education and training. 3. Patient will utilize strategies targeting respiration and phonation coordination in order to improve speech intelligibility and increase respiratory strength in semi-structured speech tasks with 80% accuracy given minimal verbal cues. Usp Goals 1. Patient will produce spontaneous speech using trained compensatory strategies in order to improve communication effectiveness. 2. Patient will improve overall self-perception of speech from a baseline of on The Communicative Participation Item Bank (CPIB) following participation in [facility] services. Treatment Activities Reviewed MBSS results and provided education re: swallowing strategies and intake modification. Provided education re: speech strategies. Discussed potential trial for high-tech AAC and EMST to target breath support and stronger cough. Called PCP, Dr. Trinidad, re: adding dysphagia medical code to referral for insurance purposes and to check on expedited neurology referral as pt had questions. Assessment Patient Response to Treatment Fair Rehab Potential Fair Impairments Identified Speech Assessment of Overall Progress Declining,Plateaued Assessment of Improvement CONVERSION WORKER reviewed MBSS results, including high aspiration risk given penetration and aspiration visualized. CONVERSION WORKER provided education re: swallow strategies, food modification , liquid modification, energy conservation, high-calorie choices, the importance of oral care for reducing aspiration pneumonia risk. Discussed EMST as a treatment modality to increase cough strength as well as breath support. Pt expressed she will consider this and CONVERSION WORKER will request PCP order for DME for [id number] Lite is pt would like to pursue. CONVERSION WORKER request medical diagnosis of dysphagia be added to referral for insurance purposes. Additionally, provided recommendations re: speech strategies, including gain the other person?s attention before talking, talk face-to- face in good lighting, check for comprehension, and talk about important things when you feel rested. Provided strategies for communication repair during communication breakdowns. Given that pt?s speech has worsened since the last treatment session and her speech does not increase in intelligibility with use of strategies, will pursue high- tech AAC given neurodegenerative nature of pt ?s presentation. CONVERSION WORKER to [facility] to discuss device options, insurance coverage, and trial device so pt can learn how to use it more efficiently and can adjust while she still has another way to communicate. Pt expressed understanding of plan. Follow-up in one week with plan to further discuss EMST and AAC device and initiate use. Reviewed with Patient Goals,Progress Being Made,Home Exercise Program Patient/Caregiver Understanding Excellent Plan Amount of Therapy Recommended 3 Months Frequency of Treatment Once a Week Length of Session 30 Minutes Therapeutic Contents Articulation Training,Client Education,Home Exercise Program,Intelligibility,Other Additional Areas of Treatment Coordination of respiration/ phonation Provided Patient/Caregiver Instruction Home Exercise Program, Questions/Concerns Therapy Recommendations Continue with Current Program Suggested Referral ENT,Neurology
--- NOTE | 2024-11-26 11:59 | ST-OP ANOTE ---
Physical, Occupational & Speech Therapy At [facility] Speech Therapy Note PICKLE PROCESSOR received call for Dr. Trinidad's office (pt's PCP) re: recent request to add dysphagia diagnosis to current referral. Clarified that code needs to be added to treatment referral rather than MBSS referral. Code in process of being added. Additionally, expedited neurology referral is being re-sent to several hospitals to full neurology work-up can be completed as soon as possible given progressing symptoms. PICKLE PROCESSOR spoke with regional rep for [employer] re: coordinating in-person device trial and education. Will discuss with pt at next visit.
--- NOTE | 2024-12-01 16:57 | ST.OPTN ---
Visit Care Team Role Provider Type Lance Trinidad MD Family Provider Physician Primary Care Provider Address: [address] [place] [address], [address], [place], [address] Franchesca Guy PA-C Attending Provider Advanced Brick Picker Referring Provider Address: [address] [place] [address], [address], [place], [address] EVIDENCE TECHNICIAN Treatment Note EVIDENCE TECHNICIAN Treatment Note Start: 09/25/24 13:46 Freq: Status: Active Protocol: Document 12/01/24 16:37 SS (Rec: 12/01/24 16:57 SS [id number]) Speech Pathology Treatment Note Session Time Visit Start Time 10:45 Visit Stop Time 11:25 Total Visit Minutes 40 Visit Information Visit Number 6 Plan of Care Dates 09/25/24-12/24/24 Insurance Information [employer] medicare Setting Treatment Setting Outpatient Care Visit Type Note Type Treatment Note Next Note Type Next Note Type Treatment Note General Information Patient History Vivi Brooks is a 78-year- old female, referred for a speech/language/voice evaluation by Franchesca Guy MD due to concerns regarding her voice and speech due to an unknown etiology. Patient lives with her and is retired. Patient reports she began noticing changes to her speech and swallowing, dizziness, sialorrhea, and difficulty with balance around April or May of 2023. Brain MRI and additional tests have been ordered by her PCP and are in process of being completed given suspected CVA. Patient reports her symptoms have been worsening gradually since onset six months ago. 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 Residual left facial weakness and mild droop , though patient reported this has not affected her speech until now. She also reports mastication is more effortful and she gets a sticking sensation with pills. She reports swallowing seems more effortful and she has to be careful so she does not bite the inside of her mouth when chewing. EVIDENCE TECHNICIAN requested dysphagia referral from PCP, Lance Trinidad, in order to assess swallowing concerns. Patient endorsed changes in speech/voice. She noted that her speech sounds slower and more impercise and she runs out of air, causing her to compensate by speaking louder and in shorter phrases. Patient noted that her spouse, who is hard of hearing, other familiy members, and customers at her [employer] ask her to repeat herself often. Conversations on the phone or via videocall have been challenging and she has began to resort to text messages. She noted that her speech gets worse as the day progresses and she becomes more tired. Subjective Identification Type Name Observations/Patient Presentation Pt arrived to the session on time. She was engaged and motivated throughout all session activities. Objective Short Term Goals 1. Patient will implement the compensatory strategy of over- articulation in order to improve speech intelligibility in semi-structured speech tasks with 80% accuracy given minimal verbal cues. 2. Patient will implement compensatory speech strategies for improved clarity of speech in 80% of opportunities following education and training. 3. Patient will utilize strategies targeting respiration and phonation coordination in order to improve speech intelligibility and increase respiratory strength in semi-structured speech tasks with 80% accuracy given minimal verbal cues. Residential Goals 1. Patient will produce spontaneous speech using trained compensatory strategies in order to improve communication effectiveness. 2. Patient will improve overall self-perception of speech from a baseline of on The Communicative Participation Item Bank (CPIB) following participation in [facility]. Treatment Activities Discussed current speech and swallowing function. Provided education re: modifying diet texture and increasing caloric intake given weight loss and increased difficulty with mastication. Messaged PCP, DR. Trinidad re: dietary referral. Provided initial education on EMST75 Lite to target improved respiratory strength/function , vocal quality, and cough strength. Provided handout for purchasing. Additionally, demonstrated DT Snap and discussed trial and funding options with [employer]. Assessment Patient Response to Treatment Good Rehab Potential Fair Impairments Identified Speech,Swallow Progress Towards Goals Good Progress Assessment of Overall Progress Declining,Plateaued Assessment of Improvement Discussed current swallowing and speech function. Pt expressed her speech has worsened in the past week and it perceptually, she demonstrated increased hoarseness and strain than in prior sessions. She reported she had to write down her message several times in the past week to make herself better understood. She expressed no change to swallowing, though continues to primarily consume liquids and puree due to difficulty with mastication and significant fatigue. She reported she had lost about 6 lbs in the past 2 months. EVIDENCE TECHNICIAN provided general information re: increasing caloric intake and modifying diet texture to increase swallowing efficiency . Messaged pt?s PCP, Dr. Trinidad about dietary referral. EVIDENCE TECHNICIAN provided education re: expiratory muscle strength operations trainer (EMST), an evidence- based approach to voice and swallow rehab that incorporates intensity, repetition, overload, specificity, saliency and transference. Provided demonstration on own device. Pt expressed she would prefer to purchase it herself rather than apply for Medicare coverage. EVIDENCE TECHNICIAN provided information and handout on purchasing. Additionally, further discussed use of AAC as pt?s speech symptoms continue to progressively worsen and her intelligibility continues to decrease. It is important to note that the severity of her speech and swallowing symptoms is consistent. That is, they do not worsen with activity and improve with rest. Provided information on devices to trial and funding information per [employer] promotions representative. Pt expressed understanding, though would like to complete scheduled medical tests prior to proceeding. She has a blood panel to assess for Myasthenia Gravis and an EMG this week. She also has an appointment with neurology on 12/23. Progress with respiratory muscle training and AAC trial pending neurology and additional testing. Reviewed with Patient Goals,Progress Being Made,Home Exercise Program Patient/Caregiver Understanding Excellent Plan Amount of Therapy Recommended 3 Months Frequency of Treatment Once a Week Length of Session 30 Minutes Therapeutic Contents Articulation Training,Client Education,Home Exercise Program,Intelligibility,Other Additional Areas of Treatment Coordination of respiration/ phonation Provided Patient/Caregiver Instruction Home Exercise Program, Questions/Concerns Therapy Recommendations Continue with Current Program Suggested Referral ENT,Neurology
--- NOTE | 2024-12-31 09:53 | ST.OPPOC ---
Physical, Occupational & Speech Therapy At [facility] Visit Care Team Role Provider Type Lance Trinidad MD Family Provider Physician Primary Care Provider Address: [address] [place] [address], [address], [place], [address] ALONDRA Diaz-Jose Attending Provider Advanced Reading Efficiency Course Director Referring Provider Address: [address] [place] [address], [address], [place], [address] Speech Pathology Plan of Care Plan of Care Dates 12/31/24-04/02/25 Referring Provider ALONDRA Atwood Patient History Vivi Brooks is a 78-year-old female, referred for a speech/language/voice evaluation by Franchesca Guy MD due to concerns regarding her voice and speech due to an unknown etiology. Patient lives with her and is retired. Patient reports she began noticing changes to her speech and swallowing, dizziness, sialorrhea , and difficulty with balance around April or May of 2024. Brain MRI and additional tests have been ordered by her PCP and are in process of being completed given suspected CVA. Patient reports her symptoms have been worsening gradually since onset six months ago. 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 Residual left facial weakness and mild droop, though patient reported this has not affected her speech until now. She also reports mastication is more effortful and she gets a sticking sensation with pills. She reports swallowing seems more effortful and she has to be careful so she does not bite the inside of her mouth when chewing. HIGH SCHOOL MATH TEACHER requested dysphagia referral from PCP, Lance Trinidad, in order to assess swallowing concerns. Patient endorsed changes in speech/voice. She noted that her speech sounds slower and more imprecise and she runs out of air, causing her to compensate by speaking louder and in shorter phrases. Patient noted that her spouse, who is hard of hearing, other family members, and customers at her [employer] ask her to repeat herself often. Conversations on the phone or via videocall have been challenging and she has began to resort to text messages. She noted that her speech gets worse as the day progresses and she becomes more tired. Impairments Identified Speech,Swallow Progress Towards Goals Good Progress Short Term Goals 1. Patient will implement the compensatory strategy of over-articulation in order to improve speech intelligibility in semi- structured speech tasks with 80% accuracy given minimal verbal cues. 2. Patient will implement compensatory speech strategies for improved clarity of speech in 80% of opportunities following education and training. 3. Patient will utilize strategies targeting respiration and phonation coordination in order to improve speech intelligibility and increase respiratory strength in semi-structured speech tasks with 80% accuracy given minimal verbal cues. Lamp Developer Goals 1. Patient will produce spontaneous speech using trained compensatory strategies in order to improve communication effectiveness. 2. Patient will improve overall self-perception of speech from a baseline of on The Communicative Participation Item Bank (CPIB) following participation in skilled services. Comment: POC extended as it had while pt was addressing overall medical health and taking a break from HIGH SCHOOL MATH TEACHER services. Short-term and long-term goals to be updated at next treatment session based on neurology results to reflect current pt concerns. Electronically Signed by: KIERAN Whiting 12/31/24 0953 If you are in agreement with this Plan of Care, please return a signed and dated copy. I have reviewed this Plan of Care and certify that the skilled therapy services above are required to meet the patient?s needs. Physician Signature Date Printed Name and Credentials Clinical Instructor Signature Printed Name and Credentials
--- NOTE | 2025-01-12 15:54 | ST.OPTN ---
Visit Care Team Role Provider Type Lance Trinidad MD Family Provider Physician Primary Care Provider Address: [address] [place] [address], [address], [place], [address] Franchesca Guy PA-C Attending Provider Advanced Flat Drier Referring Provider Address: [address] [place] [address], [address], [place], [address] RAND TACKER Treatment Note RAND TACKER Treatment Note Start: 09/25/24 13:46 Freq: Status: Active Protocol: Document 01/12/25 14:10 SS (Rec: 01/12/25 14:24 SS Desktop) Speech Pathology Treatment Note Session Time Visit Start Time 13:30 Visit Stop Time 14:10 Total Visit Minutes 40 Visit Information Visit Number 7 Plan of Care Dates 12/31/24-04/02/25 Insurance Information [employer] medicare Setting Treatment Setting Outpatient Care Visit Type Note Type Treatment Note Next Note Type Next Note Type Treatment Note General Information Patient History Vivi Brooks is a 78-year- old female, referred for a speech/language/voice evaluation by Franchesca Guy MD due to concerns regarding her voice and speech due to an unknown etiology. Patient lives with her and is retired. Patient reports she began noticing changes to her speech and swallowing, dizziness, sialorrhea, and difficulty with balance around April or May of 2023. Brain MRI and additional tests have been ordered by her PCP and are in process of being completed given suspected CVA. Patient reports her symptoms have been worsening gradually since onset six months ago. 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 Residual left facial weakness and mild droop , though patient reported this has not affected her speech until now. She also reports mastication is more effortful and she gets a sticking sensation with pills. She reports swallowing seems more effortful and she has to be careful so she does not bite the inside of her mouth when chewing. RAND TACKER requested dysphagia referral from PCP, Lance Trinidad, in order to assess swallowing concerns. Patient endorsed changes in speech/voice. She noted that her speech sounds slower and more imprecise and she runs out of air, causing her to compensate by speaking louder and in shorter phrases. Patient noted that her spouse, who is hard of hearing, other family members, and customers at her [employer] ask her to repeat herself often. Conversations on the phone or via videocall have been challenging and she has began to resort to text messages. She noted that her speech gets worse as the day progresses and she becomes more tired. POC updated to include swallowing goals. Please see goals section as well as MBSS results for further information. Subjective Identification Type Name Observations/Patient Presentation Pt arrived to the session on time. She was engaged and motivated throughout all session activities. Objective Short Term Goals 1. Patient will implement the compensatory strategy of over- articulation in order to improve speech intelligibility in semi-structured speech tasks with 80% accuracy given minimal verbal cues. ( Progressing) 2. Patient will utilize strategies targeting respiration and phonation coordination in order to improve speech intelligibility and increase respiratory strength in semi-structured speech tasks with 80% accuracy given minimal verbal cues. ( Progressing) 3. Patient will complete trial of AAC device (likely eye- gaze) in order to acquire a dedicated AAC device in order to increase use of total communication. (New) 4. Patient will complete EMST exercises independently for 4 consecutive weeks to address oropharyngeal dysphagia deficits, improve cough strength for airway protection , and increase speaking volume . (New) Met/Discontinued Goals: 1. Patient will implement compensatory speech strategies for improved clarity of speech in 80% of opportunities following education and training. (Met) Regional Dedicated Truck Driver Goals 1. Pt will utilize total communication (verbal, gestures, AAC) to communicate basic wants/needs and complex thoughts, ideas, opinions, and feelings in 90% of opportunities independently. ( New) 2. Patient will maintain overall self-perception of speech from a baseline of on The Communicative Participation Item Bank (CPIB) following participation in [facility]. ( Progressing) 3. Patient will safely tolerate least restrictive diet consistency to allow for safe consumption of daily meals without s/sx of aspiration and optimal nutrition and hydration. (New) Met/Discontinued Goals: 1. Patient will produce spontaneous speech using trained compensatory strategies in order to improve communication effectiveness. (Discontinued) Treatment Activities Facilitated discussion re: observation/concerns and reviewed neurology updates. Reviewed compensatory strategies for speech and discussed benefits of AAC. Implemented Expiratory Muscle Strength Training (EMST75), an evidence-based approach to voice and swallow rehab that incorporates intensity, repetition, overload, specificity, saliency and transference. These principles apply both to peripheral ( muscle) and central (neural) plasticity. Provided tracking sheet and instructions and reviewed HEP. Assessment Patient Response to Treatment Good Impairments Identified Speech,Swallow Progress Towards Goals Good Progress,Slow Progress Assessment of Overall Progress Improving Assessment of Improvement Pt reported she has completed further neurological assessment at , which showed suspected ALS and B12 deficiency. Pt has further testing scheduled next month. She is now being seen by her PCP every month for monitoring . Pt reported her swallowing functions seems to have improved a little. She is now able to eat soft and bite- sized textures, though this continues to be effortful for her. She reported her weight has been stable. She denied overt s/sx of laryngeal penetration/aspiration and sticking sensation in her throat with PO intake. She continues to crush medications and take them in puree carrier for ease of intake. Pt expressed her voice has been stable, though this is not consistent with RAND TACKER observations. Her intelligibility has decreased from about 80% at baseline to 40-50% currently. Her voice is more strained and her articulation becomes more imprecise if she talks beyond 2-3 minutes at a time. Reviewed compensatory speech strategies, including over- articulation, slow rate, and use of short phrases/sentences . Pt expressed she tried to implement these, though her intelligibility does not seem to increase. She continues to utilize [id number] as well as self-advocating when speaking with less familiar people. Reviewed recommendation for starting process to acquire pt dedicated AAC device given progression of symptoms, though pt would like to hold off for now. Pt continues to require voice and speech exercises and strategies to to target effective voice use and overall communication. Explained rationale for EMST75 with pt demonstrating good understanding. Set resistance today a one full turn past starting point (75% of pt?s max) per program instructions. pt practiced 1 complete set ( 5x5 reps) at 1 turn past starting resistance with occasional misses, though was able to repeat rep accurately with RAND TACKER cueing and model. Pt recalls sequence and progression well. Speaking volume varied throughout the session. Provided tracking sheet and instructions. Pt agreeable to completing EMST75 exercise per RAND TACKER recommendations. Pt expressed she is motivated to continue implementing EMST75 as well as compensatory strategies for speech and swallowing. Plan to follow up in two weeks and continue targeting total communication, effective voice use, increased respiratory support for speech production, and monitor swallowing function. Updated POC with swallowing goals sent to PCP. Reviewed with Patient Goals,Progress Being Made,Home Exercise Program Patient/Caregiver Understanding Excellent Plan Amount of Therapy Recommended 3 Months Frequency of Treatment Once a Week Length of Session 30 Minutes Therapeutic Contents Articulation Training,Client Education,Home Exercise Program,Intelligibility,Other Additional Areas of Treatment Coordination of respiration/ phonation Provided Patient/Caregiver Instruction Home Exercise Program, Questions/Concerns Therapy Recommendations Continue with Current Program Suggested Referral ENT,Neurology
--- NOTE | 2025-01-12 15:54 | ST.OPPOC ---
Physical, Occupational & Speech Therapy At [facility] Visit Care Team Role Provider Type Lance Trinidad MD Family Provider Physician Primary Care Provider Address: [address] [place] [address], [address], [place], [address] ALONDRA Diaz-Jose Attending Provider Advanced Engagement Manager Referring Provider Address: [address] [place] [address], [address], [place], [address] Speech Pathology Plan of Care Plan of Care Dates 12/31/24-04/02/25 Referring Provider ALONDRA Atwood Patient History Vivi Brooks is a 78-year-old female, referred for a speech/language/voice evaluation by Franchesca Guy MD due to concerns regarding her voice and speech due to an unknown etiology. Patient lives with her and is retired. Patient reports she began noticing changes to her speech and swallowing, dizziness, sialorrhea , and difficulty with balance around April or May of 2024. Brain MRI and additional tests have been ordered by her PCP and are in process of being completed given suspected CVA. Patient reports her symptoms have been worsening gradually since onset six months ago. 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 Residual left facial weakness and mild droop, though patient reported this has not affected her speech until now. She also reports mastication is more effortful and she gets a sticking sensation with pills. She reports swallowing seems more effortful and she has to be careful so she does not bite the inside of her mouth when chewing. VICE PRESIDENT RESEARCH requested dysphagia referral from PCP, Lance Trinidad, in order to assess swallowing concerns. Patient endorsed changes in speech/voice. She noted that her speech sounds slower and more imprecise and she runs out of air, causing her to compensate by speaking louder and in shorter phrases. Patient noted that her spouse, who is hard of hearing, other family members, and customers at her [employer] ask her to repeat herself often. Conversations on the phone or via videocall have been challenging and she has began to resort to text messages. She noted that her speech gets worse as the day progresses and she becomes more tired. POC updated to include swallowing goals. Please see goals section as well as MBSS results for further information. Impairments Identified Speech,Swallow Progress Towards Goals Good Progress,Slow Progress Short Term Goals 1. Patient will implement the compensatory strategy of over-articulation in order to improve speech intelligibility in semi- structured speech tasks with 80% accuracy given minimal verbal cues. (Progressing) 2. Patient will utilize strategies targeting respiration and phonation coordination in order to improve speech intelligibility and increase respiratory strength in semi-structured speech tasks with 80% accuracy given minimal verbal cues. (Progressing) 3. Patient will complete trial of AAC device ( likely eye-gaze) in order to acquire a dedicated AAC device in order to increase use of total communication. (New) 4. Patient will complete EMST exercises independently for 4 consecutive weeks to address oropharyngeal dysphagia deficits, improve cough strength for airway protection, and increase speaking volume. (New) Met/Discontinued Goals: 1. Patient will implement compensatory speech strategies for improved clarity of speech in 80% of opportunities following education and training. (Met) [facility]sp Goals 1. Pt will utilize total communication (verbal, gestures, AAC) to communicate basic wants/needs and complex thoughts, ideas, opinions, and feelings in 90% of opportunities independently. (New) 2. Patient will maintain overall self-perception of speech from a baseline of on The Communicative Participation Item Bank (CPIB) following participation in skilled services. (Progressing) 3. Patient will safely tolerate least restrictive diet consistency to allow for safe consumption of daily meals without s/sx of aspiration and optimal nutrition and hydration. (New) Met/Discontinued Goals: 1. Patient will produce spontaneous speech using trained compensatory strategies in order to improve communication effectiveness. ( Discontinued) Comment: Electronically Signed by: KIERAN Whiting 01/12/25 4642 If you are in agreement with this Plan of Care, please return a signed and dated copy. I have reviewed this Plan of Care and certify that the skilled therapy services above are required to meet the patient?s needs. Physician Signature Date Printed Name and Credentials Clinical Instructor Signature Printed Name and Credentials
--- NOTE | 2025-02-19 17:27 | ST.OPTN ---
Visit Care Team Role Provider Type Lance Trinidad MD Family Provider Physician Primary Care Provider Address: [address] [place] [address], [address], [place], [address] Franchesca Guy PA-C Attending Provider Advanced Shirt Ironer Supervisor Referring Provider Address: [address] [place] [address], [address], [place], [address] PIPELINE INSPECTOR Treatment Note PIPELINE INSPECTOR Treatment Note Start: 09/25/24 13:46 Freq: Status: Active Protocol: Document 02/19/25 17:05 SS (Rec: 02/19/25 17:27 SS Desktop) Speech Pathology Treatment Note Session Time Visit Start Time 16:07 Visit Stop Time 16:50 Total Visit Minutes 43 Visit Information Visit Number 8 Plan of Care Dates 12/31/24-04/02/25 Insurance [employer] medicare Information Setting Treatment Setting Outpatient Care Visit Type Note Type Treatment Note Next Note Type Next Note Type Treatment Note General Information Patient History Vivi Brooks is a 78-year-old female, referred for a speech/language/voice evaluation by Franchesca Guy MD due to concerns regarding her voice and speech due to an unknown etiology. Patient lives with her and is retired. Patient reports she began noticing changes to her speech and swallowing, dizziness, sialorrhea, and difficulty with balance around April or May of 2023. Brain MRI and additional tests have been ordered by her PCP and are in process of being completed given suspected CVA. Patient reports her symptoms have been worsening gradually since onset six months ago. 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 Residual left facial weakness and mild droop, though patient reported this has not affected her speech until now. She also reports mastication is more effortful and she gets a sticking sensation with pills. She reports swallowing seems more effortful and she has to be careful so she does not bite the inside of her mouth when chewing. PIPELINE INSPECTOR requested dysphagia referral from PCP, Lance Trinidad, in order to assess swallowing concerns. Patient endorsed changes in speech/voice. She noted that her speech sounds slower and more imprecise and she runs out of air, causing her to compensate by speaking louder and in shorter phrases. Patient noted that her spouse, who is hard of hearing, other family members, and customers at her [employer] ask her to repeat herself often. Conversations on the phone or via videocall have been challenging and she has began to resort to text messages. She noted that her speech gets worse as the day progresses and she becomes more tired . POC updated to include swallowing goals. Please see goals section as well as MBSS results for further information. Subjective Identification Type Name Observations/Patient Pt arrived to the session on time. She was engaged and Presentation motivated throughout all session activities. Objective Short Term Goals 1. Patient will implement the compensatory strategy of over-articulation in order to improve speech intelligibility in semi-structured speech tasks with 80 % accuracy given minimal verbal cues. (Progressing) 2. Patient will utilize strategies targeting respiration and phonation coordination in order to improve speech intelligibility and increase respiratory strength in semi-structured speech tasks with 80% accuracy given minimal verbal cues. (Progressing) 3. Patient will complete trial of AAC device (likely eye-gaze) in order to acquire a dedicated AAC device in order to increase use of total communication. (New) 4. Patient will complete EMST exercises independently for 4 consecutive weeks to address oropharyngeal dysphagia deficits, improve cough strength for airway protection, and increase speaking volume. (New) Met/Discontinued Goals: 1. Patient will implement compensatory speech strategies for improved clarity of speech in 80% of opportunities following education and training. (Met) Skilled Nursing Goals 1. Pt will utilize total communication (verbal, gestures, AAC) to communicate basic wants/needs and complex thoughts, ideas, opinions, and feelings in 90% of opportunities independently. (New) 2. Patient will maintain overall self-perception of speech from a baseline of on The Communicative Participation Item Bank (CPIB) following participation in [facility]. (Progressing) 3. Patient will safely tolerate least restrictive diet consistency to allow for safe consumption of daily meals without s/sx of aspiration and optimal nutrition and hydration. (New) Met/Discontinued Goals: 1. Patient will produce spontaneous speech using trained compensatory strategies in order to improve communication effectiveness. (Discontinued) Treatment Activities Facilitated discussion re: observation/concerns re: voice and swallowing and reviewed neurology updates. Implemented Expiratory Muscle Strength Training (EMST75 ). Reviewed safe swallowing strategies and introduced effortful swallow exercise. Reviewed HEP at end of session. Assessment Patient Response to Good Treatment Rehab Potential Fair Impairments Speech,Swallow Identified Progress Towards Good Progress,Slow Progress Goals Assessment of Improving Overall Progress Assessment of Pt reported additional neurological assessments that Improvement have been inconclusive, though concerns have been raised about Guillain-Le?, myasthenia gravis, and ALS . Pt denied unintentional weight loss in the past month . She reported occasional coughing with thin liquids, particularly when she is not paying attention or taking sips that are too big. She is now eating some regular textures, but primarily consumes purees and naturally thicker liquids (e.g., smoothies) as mastication is increasingly effortful and lingual weakness has increased. She has not noted any changes to her voice, though her vocal quality has become more strained- strangled and her articulatory precision has decreased since last treatment session. She has had a discussion with her PCP about PEG tube, but is not interested in this option yet. Pt is not yet interested in use of high-tech AAC, but is using text to speech diego more often. She reported she continues to try to use compensatory speech strategies, with minimal improvement. Pt stated she has been completing EMST reps every day. She brought her EMST-75 device to the session. Completed at 10 cmH2O. She was able to perform multiple reps accurately, though did not take breaks between reps, and reported she felt increasingly fatigued. Provided reminder to take 5-10 sec break between reps and 1-minute breaks between sets. Pt expressed understanding and will try to implement breaks at home. Instructed pt in the Effortful Swallow to improve tongue to palate contact, base of tongue retraction, hyolaryngeal elevation and excursion, pharyngeal constriction, and opening of the upper esophageal sphincter for improved swallowing safety and efficiency . Provided education re: form and goal of the exercise for decreased pharyngeal residue. Bolus-driven effortful swallows completed with the following consistencies: 5 ml thin: 31/32 successful swallows; average of 1-3 swallows per bolus. Strong post-swallow cough x1. 5 ml puree: 35/35 successful swallows; average of 1-2 swallows per bolus. Pt benefited from PIPELINE INSPECTOR cueing and modeling during the exercise to slow her rate. PIPELINE INSPECTOR provided education in utilizing 2 swallows if needed, however, pt completed most trials with 1 swallow, though she did express the feeling of residue occasionally. Utilized visual diagram on this date to explain how residue could build and the impotence of clearing materials prior to taking another bite. PIPELINE INSPECTOR to continue education re: utilizing multiple swallows to clear residue if needed in following sessions. Pt agreeable to completing 30-50 reps of effortful swallows with thin liquid and puree daily for HEP. She expressed understanding of education re: continuing to use safe swallowing strategies and thorough oral care to reduce risk of aspiration and to minimize colonization of oral pathogens that can increase pt's risk of developing aspiration pneumonia if aspirated. Pt expressed she is motivated to continue implementing HEP daily including EMST-75 and effortful swallows. Pt to see another PIPELINE INSPECTOR next session as she may be a good candidate for NMES to target swallowing. Pt participated well in the treatment session on this date . Extensive education re: MBSS results, recommendations , and rehabilitative exercises provided. Plan to advance EMST and effortful swallows if appropriate in following session and to start NMES if appropriate. Continue targeting oropharyngeal dysphagia and dysphonia at a frequency of every 2-4 weeks given pt report and progress with HEP. Reviewed with Goals,Progress Being Made,Home Exercise Program Patient Patient/Caregiver Excellent Understanding Plan Amount of Therapy 3 Months Recommended Frequency of Once a Week Treatment Comment Every 2-4 weeks Length of Session 30 Minutes Therapeutic Contents Articulation Training,Client Education,Home Exercise Program,Intelligibility,Other Additional Areas of Coordination of respiration/phonation Treatment Provided Patient/ Home Exercise Program,Questions/Concerns Caregiver Instruction Therapy Continue with Current Program Recommendations Suggested Referral ENT,Neurology
--- NOTE | 2025-05-27 11:54 | ST-OP ANOTE ---
Physical, Occupational & Speech Therapy At [facility] Speech Therapy Note MATERIALS DIRECTOR called pt as she has not been seen for treatment since 02/19 and POC has . Left voicemail asking pt to call clinic and schedule additional treatment sessions or discharge if she would like to disconitnue treatment.
--- NOTE | 2025-07-07 11:55 | ST.OPDS ---
Visit Care Team Role Provider Type Lance Trinidad MD Family Provider Physician Primary Care Provider Address: [address] [place] [address], [address], [place], [address] Franchesca Guy PA-C Attending Provider Advanced Track Sweeper Referring Provider Address: [address] [place] [address], [address], [place], [address] NITRIC ACID PLANT OPERATOR Treatment Note NITRIC ACID PLANT OPERATOR Treatment Note Start: 09/25/24 13:46 Freq: Status: Active Protocol: Document 07/07/25 11:50 SS (Rec: 07/07/25 11:55 SS [email or web address]) Speech Pathology Treatment Note Visit Information Visit Number 8 Plan of Care Dates 12/31/24-04/02/25 Insurance [employer] medicare Information Setting Treatment Setting Outpatient Care Visit Type Note Type Discharge Summary General Information Patient History Vivi Brooks is a 78-year-old female, referred for a speech/language/voice evaluation by Franchesca uGy MD due to concerns regarding her voice and speech due to an unknown etiology. Patient lives with her and is retired. Patient reports she began noticing changes to her speech and swallowing, dizziness, sialorrhea, and difficulty with balance around April or May of 2024. Brain MRI and additional tests have been ordered by her PCP and are in process of being completed given suspected CVA. Patient reports her symptoms have been worsening gradually since onset six months ago. 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 Residual left facial weakness and mild droop, though patient reported this has not affected her speech until now. She also reports mastication is more effortful and she gets a sticking sensation with pills. She reports swallowing seems more effortful and she has to be careful so she does not bite the inside of her mouth when chewing. NITRIC ACID PLANT OPERATOR requested dysphagia referral from PCP, Lance Trinidad, in order to assess swallowing concerns. Patient endorsed changes in speech/voice. She noted that her speech sounds slower and more imprecise and she runs out of air, causing her to compensate by speaking louder and in shorter phrases. Patient noted that her spouse, who is hard of hearing, other family members, and customers at her [employer] ask her to repeat herself often. Conversations on the phone or via videocall have been challenging and she has began to resort to text messages. She noted that her speech gets worse as the day progresses and she becomes more tired . POC updated to include swallowing goals. Please see goals section as well as MBSS results for further information. Objective Short Term Goals 1. Patient will implement the compensatory strategy of over-articulation in order to improve speech intelligibility in semi-structured speech tasks with 80 % accuracy given minimal verbal cues. (Progressing) 07/07/25: discontinue goal. 2. Patient will utilize strategies targeting respiration and phonation coordination in order to improve speech intelligibility and increase respiratory strength in semi-structured speech tasks with 80% accuracy given minimal verbal cues. (Progressing) 07/07/25: discontinue goal. 3. Patient will complete trial of AAC device (likely eye-gaze) in order to acquire a dedicated AAC device in order to increase use of total communication. (New) 07/07/25: discontinue goal. 4. Patient will complete EMST exercises independently for 4 consecutive weeks to address oropharyngeal dysphagia deficits, improve cough strength for airway protection, and increase speaking volume. (New) 07/07/25: discontinue goal. Met/Discontinued Goals: 1. Patient will implement compensatory speech strategies for improved clarity of speech in 80% of opportunities following education and training. (Met) Nursing Home Goals 1. Pt will utilize total communication (verbal, gestures, AAC) to communicate basic wants/needs and complex thoughts, ideas, opinions, and feelings in 90% of opportunities independently. (New) 07/07/25: discontinue goal. 2. Patient will maintain overall self-perception of speech from a baseline of on The Communicative Participation Item Bank (CPIB) following participation in [facility] services. (Progressing) 07/07/25: discontinue goal. 3. Patient will safely tolerate least restrictive diet consistency to allow for safe consumption of daily meals without s/sx of aspiration and optimal nutrition and hydration. (New) 07/07/25: discontinue goal. Met/Discontinued Goals: 1. Patient will produce spontaneous speech using trained compensatory strategies in order to improve communication effectiveness. (Discontinued) Treatment Activities Pt was seen for 8 treatment sessions. Treatment included swallowing exercises, such as Expiratory Muscle Strength Training (EMST75) and effortful swallow exercise. NITRIC ACID PLANT OPERATOR reviewed safe swallowing strategies and MBSS results. Additionally, education re: compensatory speech strategies for dysarthria and discussion of AAC was completed. Assessment Patient Response to Good Treatment Rehab Potential Fair Impairments Speech,Swallow Identified Progress Towards Good Progress,Slow Progress Goals Assessment of Improving Overall Progress Assessment of As of last treatment session: Pt reported additional Improvement neurological assessments that have been inconclusive, though concerns have been raised about Guillain-Le?, myasthenia gravis, and ALS. Pt denied unintentional weight loss in the past month. She reported occasional coughing with thin liquids, particularly when she is not paying attention or taking sips that are too big. She is now eating some regular textures, but primarily consumes purees and naturally thicker liquids (e.g., smoothies) as mastication is increasingly effortful and lingual weakness has increased. She has not noted any changes to her voice, though her vocal quality has become more strained-strangled and her articulatory precision has decreased since last treatment session. She has had a discussion with her PCP about PEG tube, but is not interested in this option yet. Pt is not yet interested in use of high-tech AAC, but is using text to speech diego more often. She reported she continues to try to use compensatory speech strategies, with minimal improvement. Pt stated she has been completing EMST reps every day. She brought her EMST-75 device to the session. Completed at 10 cmH2O. She was able to perform multiple reps accurately, though did not take breaks between reps, and reported she felt increasingly fatigued. Provided reminder to take 5-10 sec break between reps and 1-minute breaks between sets. Pt expressed understanding and will try to implement breaks at home. Instructed pt in the Effortful Swallow to improve tongue to palate contact, base of tongue retraction, hyolaryngeal elevation and excursion, pharyngeal constriction, and opening of the upper esophageal sphincter for improved swallowing safety and efficiency . Provided education re: form and goal of the exercise for decreased pharyngeal residue. Bolus-driven effortful swallows completed with the following consistencies: 5 ml thin: 31/32 successful swallows; average of 1-3 swallows per bolus. Strong post-swallow cough x1. 5 ml puree: 35/35 successful swallows; average of 1-2 swallows per bolus. Pt benefited from NITRIC ACID PLANT OPERATOR cueing and modeling during the exercise to slow her rate. NITRIC ACID PLANT OPERATOR provided education in utilizing 2 swallows if needed, however, pt completed most trials with 1 swallow, though she did express the feeling of residue occasionally. Utilized visual diagram on this date to explain how residue could build and the impotence of clearing materials prior to taking another bite. NITRIC ACID PLANT OPERATOR to continue education re: utilizing multiple swallows to clear residue if needed in following sessions. Pt agreeable to completing 30-50 reps of effortful swallows with thin liquid and puree daily for HEP. She expressed understanding of education re: continuing to use safe swallowing strategies and thorough oral care to reduce risk of aspiration and to minimize colonization of oral pathogens that can increase pt's risk of developing aspiration pneumonia if aspirated. Pt expressed she is motivated to continue implementing HEP daily including EMST-75 and effortful swallows. Pt to see another NITRIC ACID PLANT OPERATOR next session as she may be a good candidate for NMES to target swallowing. Pt participated well in the treatment session on this date . Extensive education re: MBSS results, recommendations , and rehabilitative exercises provided. Plan to advance EMST and effortful swallows if appropriate in following session and to start NMES if appropriate. Continue targeting oropharyngeal dysphagia and dysphonia at a frequency of every 2-4 weeks given pt report and progress with HEP. Pt has politely declined to complete AAC evaluation, but has been implementing speech strategies. Swallowing strategies and exercises provided, though pt has not attended additional sessions to review form and accurate completion. Pt has not been seen in 4 months. NITRIC ACID PLANT OPERATOR called pt and left a voicemail. Discharge pt at this time due to break in attendance. She is aware that she may request new referral from PCP. Reviewed with Goals,Progress Being Made,Home Exercise Program Patient Patient/Caregiver Excellent Understanding Plan Amount of Therapy No Further Therapy Recommended Frequency of No Further Therapy Treatment Therapeutic Contents Articulation Training,Client Education,Home Exercise Program,Intelligibility,Other Additional Areas of Coordination of respiration/phonation Treatment Provided Patient/ Home Exercise Program,Questions/Concerns Caregiver Instruction Therapy Discharge to Home Exercise Program,Discharge from Recommendations Speech Therapy Suggested Referral ENT
== END 2025-07-07 13:39 | disposition home or self-care (01) ==
LOC: SP 16:15
PROVIDERS: Family Provider Family Medicine; PCP Family Medicine; Referring Provider Physician Assistant; Visit Provider Physician Assistant
DX: R47.9 Unspecified speech disturbances (principal); R13.10 Dysphagia, unspecified
CPT/HCPCS: 92507; 92522; 92526

== ENCOUNTER → 2025-06-08 15:26 | Outpatient (CLI) | payer MEDICARE, SELFPAY ==
--- NOTE | 2025-06-08 15:27 | DI.MRI.S_ITS ---
PROCEDURE: MR CERVICAL SPINE WO CON INDICATIONS: Cortocal bulbar weakness, evaluate for tumor or stroke to brainstem TECHNIQUE: Noncontrast sagittal T1 spin echo and T2 fast spin echo, sagittal STIR, foraminal oblique sagittal T2 fast spin echo, and axial gradient echo or T2 fast spin echo through the cervical spine. COMPARISON: [facility], MR, MR HEAD/BRAIN WO/W CON, 06/08/2025, 15:57. FINDINGS: Image quality: Excellent. Alignment and Curvature: There is normal bony alignment. Bone Marrow: Marrow demonstrates normal overall signal. Spinal Cord: Visualized spinal cord has normal size and signal. No cerebellar tonsillar herniation. Paraspinous Soft Tissues: No paravertebral masses. Prevertebral soft tissues are normal in thickness. C2-C3: Normal appearance. C3-C4: Normal appearance. C4-C5: Normal appearance except for mild disc height reduction and minimal anterolisthesis C4 on C5 without significant spinal or foraminal stenosis. C5-C6: Moderately severe degenerative disc disease with a posterior transverse broad-based disc bulge causing anterior spinal stenosis that is mild in severity at this level. Mild foraminal stenosis also is present, symmetric. C6-C7: Normal appearance except for minimal disc height reduction. C7-T1: Normal appearance. IMPRESSION: Chronic degenerative changes along the cervical spine as discussed above, best seen at C5-6 where mild anterior spinal stenosis and symmetric mild foraminal stenosis is present. The clinical history request brainstem evaluation regarding stroke or tumor, and the study is performed without intravenous contrast and therefore is considered limited. Dedicated posterior fossa stroke and tumor protocol study without and with contrast may be warranted depending on the clinical status. Dictated by: Misha Roach M.D. on 06/10/2025 at 12:52 Approved by: Misha Roach M.D. on 06/10/2025 at 12:58
--- NOTE | 2025-06-08 15:27 | DI.MRI.S_ITS ---
PROCEDURE: MR HEAD/BRAIN WO/W CON INDICATIONS: cortico bulbal weekness r/o stroke tumor of brain stem TECHNIQUE: Noncontrast axial T1 spin echo, axial T2 fast spin echo, sagittal and axial FLAIR, coronal T2 fast spin echo, axial gradient echo, axial diffusion and ADC through the brain. After the administration of contrast, axial and coronal and sagittal T1 spin echo with fat saturation through the brain. COMPARISON: [facility], MR, MR HEAD/BRAIN WO/W CON, 05/16/2022, 11:37. [facility], MR, MR STROKE, 10/13/2024, 14:03. FINDINGS: Image quality: Excellent. CSF spaces: Basal cisterns are patent. No extra-axial fluid collections. Ventricles are normal in size and shape. Brain: No midline shift. No intracranial bleeds or masses. No abnormal intracranial enhancement. There is cerebral volume loss for age. There is periventricular white matter chronic small vessel ischemic change. Old lacunar infarcts are noted, stable compared to prior. The brainstem appears normal. Diffusion-weighted images demonstrate no acute infarct. No chronic ischemic insults. Intravascular flow voids are present. 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 Skull and face: Calvarial marrow is normal in signal. Orbits appear normal. Sinuses: Sinuses and mastoids appear clear. IMPRESSION: No acute or subacute infarct. No acute intracranial abnormalities or abnormal intracranial enhancement. Age-related global volume loss and chronic microvascular ischemic changes are present. 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 Dictated by: Blaze Mansfield M.D. on 06/10/2025 at 10:50 Approved by: Blaze Mansfield M.D. on 06/10/2025 at 10:58
== END ==
PROVIDERS: PCP Family Medicine; Referring Provider Family Medicine; Visit Provider Family Medicine
DX: I63.9 Cerebral infarction, unspecified (principal); I67.1 Cerebral aneurysm, nonruptured; G12.29 Other motor neuron disease; E44.1 Mild protein-calorie malnutrition; R13.13 Dysphagia, pharyngeal phase; M47.812 Spondylosis without myelopathy or radiculopathy, cervical region; M48.02 Spinal stenosis, cervical region; M50.322 Other cervical disc degeneration at C5-C6 level
CPT/HCPCS: 70553; 72141; A9579

== ENCOUNTER → 2025-06-11 13:24 | Outpatient (CLI) | payer MEDICARE, SELFPAY ==
[2025-06-11 14:18] LABS: Add Manual Diff / Slide Review NO; Hematocrit 42.2 % (36-46); Hemoglobin 13.8 g/dL (12.0-16.0); Lymphocytes Absolute Auto 1000 /uL (1100-4500); Mean Corpuscular HGB Conc 32.7 % (30-36); Mean Corpuscular Hemoglobin 27.9 PG (26-34); Mean Corpuscular Volume 85.1 fL (80-100); Platelet Count 205 X10^3/uL (150-400)
[2025-06-11 15:14] LABS: Alanine Aminotransferase 20 IU/L (<35); Albumin 4.3 g/dL (3.5-5.0); Albumin Globulin Ratio 1.3 (1.0-2.8); Alkaline Phosphatase 64 U/L (38-126); Blood Urea Nitrogen 21 mg/dL (7-17); Calcium 9.6 mg/dL (8.4-10.2); Carbon Dioxide 29 mmol/L (22-32); Chloride 102 mmol/L (98-107); Estimated Glomerular Filt Rate > 60 mL/min (>60); Globulin 3.3 g/dL (1.7-4.1); Glucose 93 mg/dL (70-99); HEMOLYSIS < 15 (0-50); Potassium 4.7 mmol/L (3.4-5.1); Sodium 139 mmol/L (137-145); Total Protein 7.6 g/dL (6.3-8.2)
[2025-06-11 15:44] LABS: TSH w/ Reflex to FT4 4.43 uIU/mL (0.47-4.68)
[2025-06-11 16:03] LABS: Vitamin B12 > 1000 pg/mL (239-931)
== END ==
PROVIDERS: PCP Family Medicine; Referring Provider Family Medicine; Visit Provider Family Medicine
DX: G12.29 Other motor neuron disease (principal); I67.1 Cerebral aneurysm, nonruptured
CPT/HCPCS: 36415; 80053; 82607; 84443; 85025; 85651; 86140